=== PATIENT | male | born 1945 | race Hispanic/Latino ===

== ENCOUNTER 2017-04-28 07:17 | Day surgery (SDC) | payer OTHER ==
--- OUTSIDE RECORDS SUMMARY | 2017-04-28 07:18 | XMS REPORT ---
:1945 [facility] [address] [place] [address] Care Team Providers Name Role Phone Kyle US Unavailable Unavailable Problems This patient has no known problems. Allergies, Adverse Reactions, Alerts This patient has no known allergies or adverse reactions. Medications This patient has no known medications. Results Test Description Test Time Test Comments Text Results Atomic Results Result Comments POCT-GLUCOSE METER 2016-05-26 10:32:00 Test Item Value Reference Range Comments POC-GLUCOSE METER (LEANDRO) (test 125 mg/dL 70-110 [facility] 7200 [id number]) [facility] [address]
[2017-04-28 07:45] VITALS: O2SAT 98
[2017-04-28] MEDS: LIDOCAINE 4% TOP SOLUTION ONE ×2 (07:45→07:55)
[2017-04-28] MEDS ORDERED: Phenylephrine HCl 10 MG/ML 1 ML VIAL ONE (07:47)
[2017-04-28] MEDS ORDERED: GLYCOPYRROLATE 0.2 MG/ML SYR ONE (07:47)
[2017-04-28] MEDS ORDERED: LIDOCAINE 1% MPF 30 ML VIAL ONE (07:48)
[2017-04-28] MEDS ORDERED: NA CHLORIDE 0.9% 1,000 ML ONE (07:48)
[2017-04-28] MEDS ORDERED: MIDAZOLAM HCL 2 MG/2 ML INJ ONE (08:23)
[2017-04-28] MEDS ORDERED: PROPOFOL 200 MG/20 ML VIAL IV ONE (08:23)
[2017-04-28] MEDS ORDERED: FENTANYL CITR 100 MCG/2 ML ONE (08:23)
[2017-04-28] MEDS ORDERED: LIDOCAINE 1% MPF 5 ML VIAL ONE (08:27)
--- NOTE | 2017-04-28 08:30 | P.OP ---
Date of Service: 04/28/17 (Bronchoscopy with right upper lobe transbronchial biopsies and BAL) Findings and Operative Technique Patient is 71 years of age evaluated by me for a right upper lobe cavitary lesion he was otherwise asymptomatic he has never smoked denies any constitutional symptoms no fever or chills After obtaining informed consent from the patient he was premedicated by anesthesia Findings normal vocal cords normal trachea normal rough right and left-sided bronchial anatomy this right middle lobe anatomy was a little unusual the Tipple biopsies were obtained from the right upper lobe including a BAL patient did not experience any significant desaturation or hypotension
[2017-04-28] MEDS ORDERED: ESMOLOL HCL 10 ML IV ONE (08:43)
--- NOTE | 2017-04-28 09:54 | RAD REPORT ---
EXAM DESCRIPTION: RAD - FLUORO-GUIDE FOR BRONCH UPT1HR - 04/28/2017 9:01 am CLINICAL HISTORY: Right upper lobe lung mass. COMPARISON: None. FINDINGS: Fluoroscopic imaging is submitted of the right lung. Details of procedure not available.
--- NOTE | 2017-04-28 10:16 | RAD REPORT ---
EXAM DESCRIPTION: RAD - Chest Single View - 04/28/2017 9:51 am CLINICAL HISTORY: Status post bronchoscopy COMPARISON: 03/30/2017 FINDINGS: Portable technique limits examination quality. Examination was performed at expiration. No pneumothorax is seen. Cavitary lesion right apex is again noted. IMPRESSION: No postprocedure pneumothorax.
[2017-04-28 13:11] VITALS: BP 138/79; TEMP 98
== END 2017-04-28 10:30 | disposition home or self-care (01) ==
LOC: OR 07:17
PROVIDERS: ATTEND Internal Medicine Sleep Medicine
DX: E11.9 Type 2 diabetes mellitus without complications; R91.8 Other nonspecific abnormal finding of lung field; I10 Essential (primary) hypertension
CPT/HCPCS: 31624; 31628; 71045; 76000; 82962; 87015; 87102; 87116; 87206; 88108; 88305 ×2; 88312 ×2; J2250; J2370; J3010; J7030

== ENCOUNTER 2019-02-23 13:55 | Emergency (ER) | payer OTHER ==
--- OUTSIDE RECORDS SUMMARY | 2019-02-23 13:58 | XMS REPORT ---
:1945 [facility] Address [address] [place] [address] Care Team Providers Name Role Phone PEGGY US Unavailable Unavailable Problems This patient has no known problems. Allergies, Adverse Reactions, Alerts This patient has no known allergies or adverse reactions. Medications This patient has no known medications. Results Test Description Test Time Test Comments Text Results Atomic Results Result Comments POCT-GLUCOSE METER 2018-04-12 12:19:00 Test Item Value Reference Range Comments POC-GLUCOSE METER (BEAKER) (test 110 mg/dL 70-110 TESTED AT [facility] 7200 [id number]) [place] [address] POCT-GLUCOSE [id number] 10:32:00 Test Item Value Reference Range Comments POC-GLUCOSE METER (BEAKER) 125 mg/dL 70-110 TESTED AT [facility] 7200 (test wnau=[id number]) [place] [address]
--- NOTE | 2019-02-23 16:25 | RAD REPORT ---
EXAM DESCRIPTION: US - Extremity Venous Uni Ltd - 02/23/2019 3:02 pm CLINICAL HISTORY: Left leg pain and swelling COMPARISON: None. TECHNIQUE: Real-time sonographic evaluation of the left lower extremity deep venous system was perfo rmed. FINDINGS: Normal compressibility, flow augmentation, phasic flow and spontaneous flow are identified in the left lower extremity common femoral, superficial femoral, popliteal and posterior tibial vein s. No intraluminal filling defects seen. IMPRESSION: No DVT in the left lower extremity.
--- NOTE | 2019-02-23 16:28 | ER ---
Nurse's Notes [facility] Name: Gilberto Rangel Age: 73 yrs Sex: Male : 1945 Arrival Date: 02/23/2019 Time: 13:58 Bed 26 Private MD: Aristides Townsend E Diagnosis: Pain in left leg Presentation: 02/23 14:06 Presenting complaint: Child states: His leg left leg has been swollen and it feels like aj1 it burning." Reports that he has had this pain for the past 2 months. Transition of care: patient was not received from another setting of care. Onset of symptoms was 2019. Risk Assessment: Do you want to hurt yourself or someone else? Patient reports no desire to harm self or others. Initial Sepsis Screen: Does the patient meet any 2 criteria? No. Patient's initial sepsis screen is negative. Does the patient have a suspected source of infection? No. Patient's initial sepsis screen is negative. Care prior to arrival: None. 14:06 Method Of Arrival: Ambulatory aj 14:06 Acuity: FILIBERTO 3 aj1 Triage Assessment: 14:08 General: Appears in no apparent distress. comfortable, Behavior is calm, cooperative, aj1 appropriate for age. Pain: Complains of pain in medial aspect of left thigh. Neuro: Level of Consciousness is awake, alert, obeys commands. Cardiovascular: Patient's skin is warm and dry. Respiratory: Airway is patent Respiratory effort is even, unlabored, Respiratory pattern is regular, symmetrical. Historical: - Allergies: 14:08 No Known Allergies; aj1 - PMHx: 14:08 Diabetes - NIDDM; Hyperlipidemia; Hypertension; aj1 - Immunization history:: Adult Immunizations up to date. - Social history:: Smoking status: Patient/guardian denies using tobacco. - Ebola Screening: : Patient denies travel to an Ebola-affected area in the 21 days before illness onset. Screenin:10 Abuse screen: Denies threats or abuse. Denies injuries from another. Nutritional ls4 screening: No deficits noted. Tuberculosis screening: No symptoms or risk factors identified. Fall Risk None identified. Assessment: 14:10 General: Appears in no apparent distress. comfortable, Behavior is calm, cooperative. ls4 Neuro: No deficits noted. Cardiovascular: No deficits noted. Respiratory: No deficits noted. GI: No deficits noted. : No deficits noted. Derm: No deficits noted. Musculoskeletal: No deficits noted. 15:11 Reassessment: Patient appears in no apparent distress at this time. Patient and/or ls4 family updated on plan of care and expected duration. Pain level reassessed. Patient is alert, oriented x 3, equal unlabored respirations, skin warm/dry/pink. 16:11 Reassessment: Patient appears in no apparent distress at this time. Patient and/or ls4 family updated on plan of care and expected duration. Pain level reassessed. Patient is alert, oriented x 3, equal unlabored respirations, skin warm/dry/pink. 16:11 Pain: Denies pain. ls4 Vital Signs: 14:08 BP 171 / 92; Pulse 83; Resp 18; Temp 97.2; Pulse Ox 96% on R/A; Weight 74.84 kg (R); aj1 Height 5 ft. 6 in. (167.64 cm); 15:10 BP 162 / 74; Pulse 82; Resp 16; Temp 97.4; Pulse Ox 99% on R/A; Pain 0/10; ls4 16:56 BP 156 / 70; Pulse 79; Resp 14; Temp 97.4(O); Pulse Ox 99% on R/A; Pain 0/10; ls4 14:08 Body Mass Index 26.63 (74.84 kg, 167.64 cm) aj1 ED Course: 13:58 Patient arrived in ED. mr 13:59 Aristides Townsend MD is Private Physician. mr 14:07 Triage completed. aj1 14:08 Arm band placed on Patient placed in an exam room. aj1 14:10 Patient has correct armband on for positive identification. Bed in low position. Call ls4 light in reach. Side rails up X2. Warm blanket given. Verbal reassurance given. 14:14 Vincent Rueda, DANAY is PHCP. pm1 14:14 Damion Augustine MD is Attending Physician. pm1 15:01 Extremity Venous Uni Ltd US In Process Unspecified. EDMS 15:10 Alanna Mcdonald, PATRICIA is Primary Nurse. ls4 15:11 No provider procedures requiring assistance completed. Patient did not have IV access ls4 during this emergency room visit. Administered Medications: No medications were administered Outcome: 16:27 Discharge ordered by . pm1 16:36 Discharged to home with family. ls4 16:36 Condition: stable 16:36 Discharge instructions given to patient, family, Instructed on discharge instructions, follow up and referral plans. Demonstrated understanding of instructions, follow-up care. 16:57 Patient left the ED. ls4 Signatures: Dispatcher [employer] EDMS Karen Lyons RN RN aj1 Celina Franco mr MohitVincent, FLEET COORDINATOR FLEET COORDINATOR pm1 Alanna Mcdonald RN RN ls4
--- NOTE | 2019-02-23 16:28 | EDPHYS ---
Physician Documentation [facility] Name: Gilberto Rangel Age: 73 yrs Sex: Male : 1945 Arrival Date: 02/23/2019 Time: 13:58 Bed 26 Private MD: Aristides Townsend E ED Physician Damion Augustine HPI: 02/23 15:24 This 73 yrs old Male presents to ER via Ambulatory with complaints of Leg pm1 Swelling and Pain. 15:24 The patient presents with pain. The complaints affect the medial aspect of left thigh. pm1 Context: The problem was sustained at home, resulted from an unknown cause, the patient can fully bear weight, the patient is able to ambulate, Problem is a result from a previous injury: No. Onset: The symptoms/episode began/occurred 2 month(s) ago. Modifying factors: The symptoms are alleviated by remaining still, the symptoms are aggravated by movement. Associated signs and symptoms: Pertinent negatives calf tenderness, fever, shortness of breath. Treatment prior to arrival includes: no previous treatment. Severity of symptoms: in the emergency department the symptoms are unchanged. The patient has not experienced similar symptoms in the past. The patient has not recently seen a physician. Historical: - Allergies: 14:08 No Known Allergies; aj1 - PMHx: 14:08 Diabetes - NIDDM; Hyperlipidemia; Hypertension; aj1 - Immunization history:: Adult Immunizations up to date. - Social history:: Smoking status: Patient/guardian denies using tobacco. - Ebola Screening: : Patient denies travel to an Ebola-affected area in the 21 days before illness onset. ROS: 15:24 Constitutional: Negative for fever, chills, and weight loss, Neck: Negative for injury, pm1 pain, and swelling, Cardiovascular: Negative for chest pain, palpitations, and edema, Respiratory: Negative for shortness of breath, cough, wheezing, and pleuritic chest pain, Abdomen/GI: Negative for abdominal pain, nausea, vomiting, diarrhea, and constipation, Back: Negative for injury and pain. 15:24 Skin: Negative for injury, rash, and discoloration, Neuro: Negative for headache, weakness, numbness, tingling, and seizure. 15:24 MS/extremity: Positive for pain, swelling, tenderness, of the medial aspect of left thigh, Negative for decreased range of motion, deformity. Exam: 15:24 Constitutional: This is a well developed, well nourished patient who is awake, alert, pm1 and in no acute distress. Head/Face: Normocephalic, atraumatic. Chest/axilla: Normal chest wall appearance and motion. Nontender with no deformity. No lesions are appreciated. Cardiovascular: Regular rate and rhythm with a normal S1 and S2. No gallops, murmurs, or rubs. Normal PMI, no JVD. No pulse deficits. Respiratory: Lungs have equal breath sounds bilaterally, clear to auscultation and percussion. No rales, rhonchi or wheezes noted. No increased work of breathing, no retractions or nasal flaring. Abdomen/GI: Soft, non-tender, with normal bowel sounds. No distension or tympany. No guarding or rebound. No evidence of tenderness throughout. Back: No spinal tenderness. No costovertebral tenderness. Full range of motion. Skin: Warm, dry with normal turgor. Normal color with no rashes, no lesions, and no evidence of cellulitis. 15:24 Musculoskeletal/extremity: Extremities: grossly normal except: noted in the medial aspect of left thigh: tenderness, There is no evidence of decreased ROM, erythema, swelling, Pulses: noted to be 2+ in the left dorsalis pedis artery, the left leg Sensation intact. 15:24 Neuro: Orientation: is normal, Motor: is normal, moves all fours. Vital Signs: 14:08 BP 171 / 92; Pulse 83; Resp 18; Temp 97.2; Pulse Ox 96% on R/A; Weight 74.84 kg (R); aj1 Height 5 ft. 6 in. (167.64 cm); 15:10 BP 162 / 74; Pulse 82; Resp 16; Temp 97.4; Pulse Ox 99% on R/A; Pain 0/10; ls4 16:56 BP 156 / 70; Pulse 79; Resp 14; Temp 97.4(O); Pulse Ox 99% on R/A; Pain 0/10; ls4 14:08 Body Mass Index 26.63 (74.84 kg, 167.64 cm) [facility] MDM: 14:20 Patient medically screened. [facility] 15:28 Data reviewed: vital signs. Data interpreted: Pulse oximetry: on room air is 96 %. pm1 Interpretation: normal. 16:26 Counseling: I had a detailed discussion with the patient and/or guardian regarding: the pm1 historical points, exam findings, and any diagnostic results supporting the discharge/admit diagnosis, radiology results, the need for outpatient follow up, to return to the emergency department if symptoms worsen or persist or if there are any questions or concerns that arise at home. 02/23 14:35 Order name: Extremity Venous Uni Ltd US; Complete Time: 16:26 pm1 Administered Medications: No medications were administered Disposition: 20:41 Co-signature as Attending Physician, Damion Augustine MD I agree with the assessment and [facility] plan of care. Disposition: 02/23/19 16:27 Discharged to Home. Impression: Pain in left leg. - Condition is Stable. - Discharge Instructions: Musculoskeletal Pain. - Prescriptions for Tramadol 50 mg Oral Tablet - take 1 tablet by ORAL route every 8 hours as needed; 12 tablet. - Medication Reconciliation Form, Thank You Letter, Antibiotic Education, Prescription Opioid Use form. - Follow up: Emergency Department; When: As needed; Reason: Worsening of condition. Follow up: Private Physician; When: 2 - 3 days; Reason: Recheck today's complaints, Continuance of care, Re-evaluation by your physician. - Problem is new. - Symptoms have improved. Signatures: Dispatcher [employer] EDKaren Li, PATRICIA RN aj1 Damion Augustine MD MD cha Marinas, Patrick, DANAY DIRECTOR OF ACADEMIC SUPPORT pm1 Alanna Mcdonald RN RN ls4 Corrections: (The following items were deleted from the chart) 16:57 16:27 02/23/2019 16:27 Discharged to Home. Impression: Pain in left leg. Condition is ls4 Stable. Forms are Medication Reconciliation Form, Thank You Letter, Antibiotic Education, Prescription Opioid Use. Follow up: Emergency Department; When: As needed; Reason: Worsening of condition. Follow up: Private Physician; When: 2 - 3 days; Reason: Recheck today's complaints, Continuance of care, Re-evaluation by your physician. Problem is new. Symptoms have improved. pm1
[2019-02-23 18:02] VITALS: TEMP 97.4; O2SAT 99
[2019-02-23 18:03] VITALS: BP 156/70
== END 2019-02-23 16:57 | disposition home or self-care (01) ==
LOC: ER 13:55
DX: M79.652 Pain in left thigh (principal); I10 Essential (primary) hypertension
CPT/HCPCS: 93971; 99283

== ENCOUNTER 2019-04-16 12:44 | Emergency (ER) | payer OTHER ==
--- OUTSIDE RECORDS SUMMARY | 2019-04-16 12:46 | XMS REPORT ---
:1945 [facility] Address [address] [place] [address] Care Team Providers Name Role Phone PEGGY [...] (BEAKER) (test 110 mg/dL 70-110 TESTED AT [facility] 7200 [id number]) [place] [address] POCT-GLUCOSE [id number] 10:32:00 Test Item Value Reference Range Comments POC-GLUCOSE METER (BEAKER) 125 mg/dL 70-110 TESTED AT [facility] 7200 (test stut=2423) [place] [address]
--- OUTSIDE RECORDS SUMMARY | 2019-04-16 12:46 | XMS REPORT | Summary of Care ---
:1945 Author Organization [facility] [place] [address] Care Team Providers Name Role Phone Aristides Townsend MD Primary Care Provider Reason for Visit Reason Comments Eye Problem Consult, Test & Treat (Routine) Status Reason Specialty Diagnoses / Referred By Referred To Procedures Contact Contact Patient Ophth Cornea Diagnoses Return in about 9 months Referral, Marsha Dover Specialist / Procedures ESTABLISHED OFFICE VISIT Self Lalo Ophthalmology MD [address] [place] [address] Encounter Details Date Type Department Care Team Description 04/16/2019 Office Visit [facility] Lalo Dover Eye Problem Ophthalmology [address] [place] [address] [id number] [place] [address] Allergies No Known Allergiesdocumented as of this encounter (statuses as of 04/16/2019) Medications Medication Sig Dispensed Refills Start Date End Date Status simvastatin (ZOCOR) Take 20 mg 0 Active 20 MG tablet by mouth every evening. lisinopril (PRINIVIL, Take 40 mg 0 Active ZESTRIL) 40 MG tablet by mouth daily. GLIPIZIDE OR Take by 0 Active mouth. AMLODIPINE BESYLATE Take by 0 Active OR mouth. TRAZODONE HCL OR Take by 0 Active mouth. metformin Take 1,000 0 Active (GLUCOPHAGE) 1000 MG mg by tablet mouth 2 times daily (with meals). metoprolol Take 50 mg 0 Active (TOPROL-XL) 50 MG XL by mouth. tablet fluorometholone (FML) Place 1 10 mL 10 07/17/2018 Active 0.1 % ophthalmic Drop into suspension the left eye daily. fluorometholone (FML) Place 1 10 mL 6 04/16/2019 Active 0.1 % ophthalmic Drop into suspension the left eye daily. fluorometholone (FML) Place 1 10 mL 10 03/07/2018 Discontinued 0.1 % ophthalmic Drop into 0 (*Duplicate suspension the left medication) eye daily. difluprednate Place 1 5 mL 3 04/10/2018 Discontinued (DUREZOL) 0.05 % Drop into 0 (*Therapy ophthalmic emulsion the left completed) eye four times daily. documented as of this encounter (statuses as of 04/16/2019) Active Problems Problem Noted Date Primary open angle glaucoma (POAG) of left eye, severe stage 08/21/2018 documented as of this encounter (statuses as of 04/16/2019) Social History Tobacco Use Types Packs/Day Years Used Date Never Smoker Smokeless Tobacco: Never Used Sex Assigned at Date Recorded Not on file Job Start Date Occupation Industry Not on file Not on file Not on file Travel History Travel Start Travel End No recent travel history available. documented as of this encounter Last Filed Vital Signs Not on filedocumented in this encounter Progress Notes Lalo Dover MD - 04/16/2019 9:50 AM CDT PROGRESS NOTE: Summary: This patient underwent DMEK in the left eye and May 2016 with a repeat DMEK in the left eye in April 2018. I saw him most recently in July of last last year on exam at that time he was 20/40 left with a prosthesis in the right eye the left eye showed horizontal pupil displacement with a large superior PI and and IOL in good position. Currently he notes his vision fluctuates but he is doing well. HPI SKA Pt is a 73 y.o M here for yearly corneal transplant eval OS. Pt states OS VA fluctuates a lot is notvery stable, some days its better than others. Denies eye pain or discomfort. POHx: 05/26/2016 DMEK OS ([facility]) 04/12/2018 Repeat DMEK OS 8% C3F8 ([facility]) Prosthesis OD Gtts: FML QD OS (refill sent) Last edited by Nini Barr COA on 04/16/2019 10:29 AM. (History) IMPRESSION: #1. Doing well following DMEK OS #2 glaucoma currently followed by Dr. Mauricio PLAN: #1. Continue current medications #2 follow-up with Dr. Mauricio CLAUDIA #3 return to see me in 1 year ATTESTATIONS: I have personally interviewed and examined the patient. I have reviewed the PMH , SH, FHX, ROS, MEDS,ALLERGIES and TECH NOTE, and have updated the computerized patient record appropriately. The review of systems is negative unless documented otherwise in the medical record. In the event that there is documentation by the resident or fellow in the medical record, I agree with the resident/fellow's assessment and plan. Any exceptions are noted in my assessment & plan.The risks, benefits, and alternatives of treatment were discussed with the patient (& family, If present). All questions regarding diagnosis and treatment were answered to the patient's satisfaction.This document has been prepared with the assistance of voice recognition software. Despite proof reading, some errors may have occurred.- please forgive mis- transcriptions, mis-heard words, or errors documented in this encounter Plan of Treatment Health Maintenance Due Date Last Done Comments COLON CANCER SCREENING: COLONOSCOPY 1945 TETANUS SHOT (ADULT) 10/08/1958 FALL SCREEN 10/08/2008 PNEUMOVAX >=65 (PPSV23) 10/08/2008 PREVNAR >=65 (PCV13) 10/08/2008 MEDICARE AWV (Initial) 02/07/2018 FLU VACCINE > 6 MONTHS 09/07/2018 documented as of this encounter Results Not on filedocumented in this encounter Visit Diagnoses Diagnosis Open-angle glaucoma of left eye, unspecified glaucoma stage, unspecified open- angle glaucoma type - Primary 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
--- NOTE | 2019-04-16 15:19 | RAD REPORT ---
EXAM DESCRIPTION: Bno Pa And Lat (2 Views)04/16/2019 3:12 pm CLINICAL HISTORY: Cough COMPARISON: March 2019 FINDINGS: The right apical opacity appears mildly diminished in size The lungs appear clear of acute infiltrate. The heart is normal size IMPRESSION: Right apical opacity appears mildly diminished in size. It is recommended that this be followed until it is clear to help exclude post obstructive process/underlying mass
[2019-04-16] MEDS ORDERED: AZITHROMYCIN 250 MG TAB ONE (15:40)
--- NOTE | 2019-04-16 15:42 | ER ---
Nurse's Notes [facility] Name: Gilberto Rangel Age: 73 yrs Sex: Male : 1945 Arrival Date: 04/16/2019 Time: 12:47 Bed 15 Private MD: Aristides Townsend E Diagnosis: Cough;Acute upper respiratory infection, unspecified;Type 2 diabetes mellitus Presentation: 04/15 12:55 Chief complaint: Patient states: dry, hacking cough x 9 days and now a sore chest. ss Denies fever. Pt reports that it is hard for him to sleep when he lays down because he feels as if he cannot breathe. Coronavirus screen: The patient has NOT traveled to a country currently being monitored by the [facility] within the last 14 days. Proceed with normal triage procedures. Ebola Screen: Patient denies exposure to infectious person. Patient denies travel to an Ebola-affected area in the 21 days before illness onset. Resp Distress? No respiratory distress is noted at this time. Initial Sepsis Screen: Does the patient meet any 2 criteria? No. Patient's initial sepsis screen is negative. Does the patient have a suspected source of infection? No. Patient's initial sepsis screen is negative. Risk Assessment: Do you want to hurt yourself or someone else? Patient reports no desire to harm self or others. 12:55 Method Of Arrival: Ambulatory ss 12:55 Acuity: FILIBERTO 3 ss Historical: - Allergies: 12:57 No Known Allergies; ss - PMHx: 12:57 Diabetes - NIDDM; Hyperlipidemia; Hypertension; ss - Immunization history:: Adult Immunizations up to date. - Social history:: Smoking status: Patient denies any tobacco usage or history of. - Family history:: not pertinent. Screenin:05 Abuse screen: Denies threats or abuse. Denies injuries from another. Nutritional ph screening: No deficits noted. Tuberculosis screening: No symptoms or risk factors identified. Fall Risk None identified. Vital Signs: 12:55 BP 165 / 89; Pulse 70; Resp 16; Temp 97.4; Pulse Ox 96% on R/A; Pain 3/10; ss ED Course: 12:47 Patient arrived in ED. mr 12:47 Aristides Townsend MD is Private Physician. mr 12:56 Triage completed. ss 12:57 Arm band placed on right wrist. ss 13:34 Davide, Damion, MD is Attending Physician. [facility] 14:00 Chiqui Jarrett, RN is Primary Nurse. 14:08 Patient has correct armband on for positive identification. Bed in low position. Call ph light in reach. Pulse ox on. NIBP on. Door closed. Noise minimized. Warm blanket given. 15:39 Aristides Townsend MD is Referral Physician. [facility] 15:39 Cornelio Puckett MD is Referral Physician. [facility] 03 07:45 Attending Physician role handed off by Damion Augustine MD 07:46 Margarita Main, RN is Primary Nurse. ss Administered Medications: 04/15 16:36 Drug: Zithromax 500 mg Route: PO; ph Outcome: 15:42 Discharge ordered by . [facility] 16:36 Patient left the ED. ph Signatures: Damion Augustine MD MD cha Rivera, Mary Chiqui Jarrett, PATRICIA RN Margarita Main RN RN ph Corrections: (The following items were deleted from the chart) 04/16 07:47 07:[address] [facility]
--- NOTE | 2019-04-16 15:42 | EDPHYS ---
Physician Documentation [facility] Name: Gilberto Rangel Age: 73 yrs Sex: Male : 1945 Arrival Date: 04/16/2019 Time: 12:47 Bed 15 Private MD: Aristides Townsend E ED Physician HPI: 04/15 14:20 This 73 yrs old Male presents to ER via Ambulatory with complaints of Cough, fay Congestion. 14:20 The patient or guardian reports cough, that is intermittent. Onset: The fay symptoms/episode began/occurred 10 day(s) ago. Severity of symptoms: At their worst the symptoms were mild, in the emergency department the symptoms are unchanged. Modifying factors: The symptoms are alleviated by nothing, the symptoms are aggravated by nothing. Associated signs and symptoms: The patient has no apparent associated signs or symptoms. The patient has not experienced similar symptoms in the past. Historical: - Allergies: 12:57 No Known Allergies; ss - PMHx: 12:57 Diabetes - NIDDM; Hyperlipidemia; Hypertension; ss - Immunization history:: Adult Immunizations up to date. - Social history:: Smoking status: Patient denies any tobacco usage or history of. - Family history:: not pertinent. ROS: 14:20 Constitutional: Negative for fever, chills, and weight loss, Eyes: Negative for injury, fay pain, redness, and discharge, ENT: Negative for injury, pain, and discharge, Neck: Negative for injury, pain, and swelling, Cardiovascular: Negative for chest pain, palpitations, and edema, Abdomen/GI: Negative for abdominal pain, nausea, vomiting, diarrhea, and constipation, Back: Negative for injury and pain, : Negative for injury, bleeding, discharge, and swelling, MS/Extremity: Negative for injury and deformity, Skin: Negative for injury, rash, and discoloration, Neuro: Negative for headache, weakness, numbness, tingling, and seizure, Psych: Negative for depression, anxiety, suicide ideation, homicidal ideation, and hallucinations, Allergy/Immunology: Negative for hives, rash, and allergies, Endocrine: Negative for neck swelling, polydipsia, polyuria, polyphagia, and marked weight changes, Hematologic/Lymphatic: Negative for swollen nodes, abnormal bleeding, and unusual bruising. 14:20 Respiratory: Positive for cough. Exam: 14:20 Constitutional: This is a well developed, well nourished patient who is awake, alert, fay and in no acute distress. Head/Face: Normocephalic, atraumatic. Eyes: Pupils equal round and reactive to light, extra-ocular motions intact. Lids and lashes normal. Conjunctiva and sclera are non-icteric and not injected. Cornea within normal limits. Periorbital areas with no swelling, redness, or edema. ENT: Nares patent. No nasal discharge, no septal abnormalities noted. Tympanic membranes are normal and external auditory canals are clear. Oropharynx with no redness, swelling, or masses, exudates, or evidence of obstruction, uvula midline. Mucous membranes moist. Neck: Trachea midline, no thyromegaly or masses palpated, and no cervical lymphadenopathy. Supple, full range of motion without nuchal rigidity, or vertebral point tenderness. No Meningismus. Chest/axilla: Normal chest wall appearance and motion. Nontender with no deformity. No lesions are appreciated. Cardiovascular: Regular rate and rhythm with a normal S1 and S2. No gallops, murmurs, or rubs. Normal PMI, no JVD. No pulse deficits. Respiratory: Lungs have equal breath sounds bilaterally, clear to auscultation and percussion. No rales, rhonchi or wheezes noted. No increased work of breathing, no retractions or nasal flaring. Abdomen/GI: Soft, non-tender, with normal bowel sounds. No distension or tympany. No guarding or rebound. No evidence of tenderness throughout. Back: No spinal tenderness. No costovertebral tenderness. Full range of motion. Male : Normal genitalia with no discharge or lesions. Skin: Warm, dry with normal turgor. Normal color with no rashes, no lesions, and no evidence of cellulitis. MS/ Extremity: Pulses equal, no cyanosis. Neurovascular intact. Full, normal range of motion. Neuro: Awake and alert, GCS 15, oriented to person, place, time, and situation. Cranial nerves II-XII grossly intact. Motor strength 5/5 in all extremities. Sensory grossly intact. Cerebellar exam normal. Normal gait. Psych: Awake, alert, with orientation to person, place and time. Behavior, mood, and affect are within normal limits. 14:20 Musculoskeletal/extremity: DVT Exam: No signs of deep vein thrombosis. no pain, no swelling, no tenderness, negative Homans' sign noted on exam, no appreciated bluish discoloration, no erythema, no increased warmth. Vital Signs: 12:55 BP 165 / 89; Pulse 70; Resp 16; Temp 97.4; Pulse Ox 96% on R/A; Pain 3/10; ss MDM: 13:34 Patient medically screened. [facility] 14:21 Data reviewed: vital signs, nurses notes, radiologic studies, plain films. [facility] 04/15 14:08 Order name: Chest Pa And Lat (2 Views) XRAY [facility] 04/15 16:15 Order name: RAD EDMA Administered Medications: 16:36 Drug: Zithromax 500 mg Route: PO; ph Disposition: 04/16/19 15:42 Discharged to Home. Impression: Cough, Acute upper respiratory infection, unspecified, Type 2 diabetes mellitus. - Condition is Stable. - Discharge Instructions: Type 2 Diabetes Mellitus, Diagnosis, Adult, Upper Respiratory Infection, Adult, Upper Respiratory Infection, Adult, Gaem-sm-Tqbx, Cough, Adult, Vwcx-xn-Fhcu, Cough, Adult, Type 2 Diabetes Mellitus, Diagnosis, Adult, Azae-bx-Pyys, Type 2 Diabetes Mellitus, Self Care, Adult, Type 2 Diabetes Mellitus, Self Care, Adult, Knfu-sb-Yyxi. - Prescriptions for Bromfed DM 2- 30-10 mg/5 mL Oral syrup - take 10 milliliter by ORAL route every 4 hours; 160 milliliter. Zithromax 500 mg Oral Tablet - take 1 tablet by ORAL route once daily for 5 days; 5 tablet. - Medication Reconciliation Form, Thank You Letter, Antibiotic Education, Prescription Opioid Use form. - Follow up: Aristides Townsend; When: 2 - 3 days; Reason: Recheck today's complaints, Continuance of care, Re-evaluation by your physician. Follow up: Cornelio Puckett; When: 2 - 3 days; Reason: Recheck today's complaints, Re-evaluation by your physician. - Problem is new. - Symptoms have improved. Signatures: Dispatcher [employer] EDMS Damion Augustine MD MD cha Smirch, Shelby, RN RN ss Margarita Main RN RN ph Corrections: (The following items were deleted from the chart) 16:36 15:42 04/16/2019 15:42 Discharged to Home. Impression: Cough; Acute upper respiratory ph infection, unspecified; Type 2 diabetes mellitus. Condition is Stable. Discharge Instructions: Type 2 Diabetes Mellitus, Diagnosis, Adult, Upper Respiratory Infection, Adult, Upper Respiratory Infection, Adult, Qkln-cf-Jejs, Cough, Adult, Itsb-gk-Jfuj, Cough, Adult, Type 2 Diabetes Mellitus, Diagnosis, Adult, Xavq-rt-Ulrk, Type 2 Diabetes Mellitus, Self Care, Adult, Type 2 Diabetes Mellitus, Self Care, Adult, Noqe-wf-Qham. Prescriptions for Bromfed DM 2-30-10 mg/5 mL Oral syrup - take 10 milliliter by ORAL route every 4 hours; 160 milliliter, Zithromax 500 mg Oral Tablet - take 1 tablet by ORAL route once daily for 5 days; 5 tablet. and Forms are Medication Reconciliation Form, Thank You Letter, Antibiotic Education, Prescription Opioid Use. Follow up: Aristides Townsend; When: 2 - 3 days; Reason: Recheck today's complaints, Continuance of care, Re-evaluation by your physician. Follow up: Cornelio Puckett; When: 2 - 3 days; Reason: Recheck today's complaints, Re-evaluation by your physician. Problem is new. Symptoms have improved. [facility] 04/16 07:46 04/15 16:36 04/16/2019 15:42 Discharged to Home. Impression: Cough; Acute upper ss respiratory infection, unspecified; Type 2 diabetes mellitus. Condition is Stable. Discharge Instructions: Type 2 Diabetes Mellitus, Diagnosis, Adult, Upper Respiratory Infection, Adult, Upper Respiratory Infection, Adult, Usya-gi-Eufu, Cough, Adult, Tikh-gr-Iyxp, Cough, Adult, Type 2 Diabetes Mellitus, Diagnosis, Adult, Bzgl-sk-Ilww, Type 2 Diabetes Mellitus, Self Care, Adult, Type 2 Diabetes Mellitus, Self Care, Adult, Itxx-br-Taqa. Prescriptions for Bromfed DM 2-30-10 mg/5 mL Oral syrup - take 10 milliliter by ORAL route every 4 hours; 160 milliliter, Zithromax 500 mg Oral Tablet - take 1 tablet by ORAL route once daily for 5 days; 5 tablet. and Forms are Medication Reconciliation Form, Thank You Letter, Antibiotic Education, Prescription Opioid Use. Follow up: Aristides Townsend; When: 2 - 3 days; Reason: Recheck today's complaints, Continuance of care, Re-evaluation by your physician. Follow up: Cornelio Puckett; When: 2 - 3 days; Reason: Recheck today's complaints, Re-evaluation by your physician. Problem is new. Symptoms have improved. ph
[2019-04-16 16:42] VITALS: BP 165/89; TEMP 97.4; O2SAT 96
== END 2019-04-17 07:46 | disposition home or self-care (01) ==
LOC: ER 12:44
DX: J06.9 Acute upper respiratory infection, unspecified (principal); R05 Cough; E11.9 Type 2 diabetes mellitus without complications
CPT/HCPCS: 71046; 99283

== ENCOUNTER 2019-05-30 19:45 | Emergency (ER) | payer OTHER ==
--- OUTSIDE RECORDS SUMMARY | 2019-05-30 19:47 | XMS REPORT ---
:1945 Author Organization [facility] t Address [address] [place] [address] Care Team Providers Name Role Phone Kyle [...] (BEAKER) (test 110 mg/dL 70-110 TESTED AT [facility] 7200 code = 1538) [facility] [address] POCT-GLUCOSE [id number] 10:32:00 Test Item Value Reference Range Comments POC-GLUCOSE METER (BEAKER) 125 mg/dL 70-110 TESTE D AT [facility] 7200 (test code = 1538) [facility] [id number]
[2019-05-30] MEDS ORDERED: ACETAMINOPHEN 500 MG TAB ONE (21:09)
--- NOTE | 2019-05-30 21:43 | RAD REPORT ---
EXAM DESCRIPTION: CT - Head C Spine Mpr Wo Con - 05/30/2019 8:39 pm CLINICAL HISTORY: Head and neck injury status post fall. Head and neck pain COMPARISON: [address] TECHNIQUE: Computed axial tomography of the head and cervical spine was obtained. Sagittal and coronal reconstruction was performed. All CT scans are performed using dose optimization technique as appropriate and may include automated exposure control or mA/KV adjustment according to patient size. FINDINGS: Left parietal scalp swelling A tiny amount of increased density is present within the anterior interhemispheric fissure likely sub arachnoid blood. Punctate calcification within the left frontal lobe. The ventricles are normal in caliber. An extra-axial fluid collection is not noted.Fluid within the v isualized sinuses and mastoids is not seen A cervical fracture is not visualized. No dislocation is noted. Spondylosis involves the mid and dist al cervical spine 4 centimeter right upper lobe opacity has been present on prior exams IMPRESSION: Tiny subarachnoid bleed within the anterior interhemispheric fissure A cervical fracture is not visualized. Examination was discussed with Dr. Carreno in the Emergency Room at approximately 9:10 p.m. May 30, 2019
[2019-05-30 22:38] LABS: Absolute Lymphocytes (CBC) 2.2 K/uL (0.7-4.9); Basophils % 0.5 % (0-1.3); Lymphocytes % 26.2 % (15.3-44.8); MPV 10.1 fL (7.6-11.3); RBC Red Blood Cell Count 4.75 M/uL (4.33-5.43)
[2019-05-30 22:40] LABS: Protime INR 0.93
[2019-05-30 22:53] LABS: ALT/SGPT 40 U/L (12-78); AST/SGOT 22 U/L (15-37); Albumin 4.2 g/dL (3.4-5.0); Alkaline Phosphatase 60 U/L (45-117); BUN Blood Urea Nitrogen 15 mg/dL (7-18); Bicarbonate 27 mmol/L (21-32); Bilirubin Direct 0.1 mg/dL (0-0.2); Bilirubin Total 0.4 mg/dL (0.2-1.0); Glucose Level 179 mg/dL (74-106); Magnesium 2.1 mg/dL (1.8-2.4); NT PRO-BNP 107 pg/mL (<450); Potassium 4.4 mmol/L (3.5-5.1); Protein, Total 7.9 g/dL (6.4-8.2); Sodium Level 139 mmol/L (136-145); Troponin (Emerg Dept Use Only) < 0.02 ng/mL (0.0-0.045)
--- NOTE | 2019-05-30 22:59 | ER ---
Nurse's Notes [facility] Name: Gilberto Rangel Age: 73 yrs Sex: Male : 1945 Arrival Date: 05/30/2019 Time: 19:51 Bed 2 Private MD: Diagnosis: TRAUMATIC SUBARACHNOID HEMORRHAGE Presentation: 05/29 19:45 Coronavirus screen: Proceed with normal triage. Ebola Screen: No symptoms or risks lp1 identified at this time. Initial Sepsis Screen: Does the patient meet any 2 criteria? No. Patient's initial sepsis screen is negative. Does the patient have a suspected source of infection? No. Patient's initial sepsis screen is negative. Risk Assessment: Do you want to hurt yourself or someone else? Patient reports no desire to harm self or others. Onset of symptoms was May 30, 2019. Care prior to arrival: Bleeding of injury controlled. Injury dressed. 19:45 Acuity: FILIBERTO 3 lp1 19:45 Method Of Arrival: EMS: [facility] lp1 19:45 Chief complaint: Chief complaint: EMS states: Called for patient who had fallen, hit lp1 head on corner of counter top; States carrying a bowl of salsa and slipped, his leg gave out and he hit his head; Denies any LOC, no other complaints; States headache, on arrival 5/10 on pain scale. 20:00 Care prior to arrival: None. Mechanism of Injury: Fall from standing position. Trauma lp1 event details: Injury occurred in the [facility], Injury occurred: at home. Injury occurred: May 30, 2019 Injury occurred at: 18:30. Historical: - Allergies: 20:13 No Known Allergies; lp1 - Home Meds: 20:13 Metformin Oral [Active]; Aspirin Oral [Active]; Simvastatin Oral [Active]; Metoprolol lp1 Tartrate Oral [Active]; - PMHx: 20:13 Diabetes - NIDDM; Hyperlipidemia; Hypertension; lp1 - PSHx: 20:13 Appendectomy; lp1 - Immunization history:: Adult Immunizations up to date, Last tetanus immunization: unknown. - Social history:: Smoking status: Patient denies any tobacco usage or history of. Screenin:51 Abuse screen: Denies threats or abuse. Denies injuries from another. Nutritional lp1 screening: No deficits noted. Tuberculosis screening: No symptoms or risk factors identified. Fall Risk None identified. Primary Survey: 19:45 NO uncontrolled hemorrhage observed. A: The patient is alert. Airway: patent, No lp1 supplemental oxygen in use on arrival. Breathing/Chest: Respiratory pattern: regular, Respiratory effort: spontaneous, unlabored, Breath sounds: clear, Chest inspection: symmetrical rise and fall of the chest. Circulation: Skin color: pink, Skin temperature: warm, dry. Disability Alert. Exposure/Environment: Obvious injury(ies) are noted at this time: Superficial laceration to back of scalp. 21:00 Reassessment Breathing/Chest Respiratory pattern Regular Respiratory effort Spontaneous lp1 Unlabored Chest inspection Symmetrical. Secondary Survey: 20:00 HEENT: Head Other Laceration to back of scalp Face No injury/deformity Eyes: No injury lp1 or deformity noted. to bilateral eyes. Ears: clear bilaterally. Nose: clear to bilateral nares. Throat: No injury or deformity noted. Gastrointestinal: Abdomen is soft. : No signs and/or symptoms were reported regarding the genitourinary system. Musculoskeletal: Range of motion: intact in all extremities. Assessment: 20:00 General: Appears in no apparent distress. Behavior is calm, cooperative, appropriate lp1 for age. Pain: Denies pain. Neuro: Level of Consciousness is awake, alert, obeys commands, Oriented to person, place, time, situation, Pupils are PERRLA, Reports headache. Cardiovascular: Patient's skin is warm and dry. Respiratory: Respiratory effort is even, unlabored. GI: No signs and/or symptoms were reported involving the gastrointestinal system. : No signs and/or symptoms were reported regarding the genitourinary system. EENT: No signs and/or symptoms were reported regarding the EENT system. Derm: superficial laceration to back of scalp, not actively bleeding; superficial laceration to right thumb, no active bleeding. Musculoskeletal: Circulation, motion, and sensation intact. Range of motion: intact in all extremities. 20:45 Reassessment: Patient is alert, oriented x 3, equal unlabored respirations, skin lp1 warm/dry/pink. Patient returned from CT at this time. 21:40 Reassessment: Patient is alert, oriented x 3, equal unlabored respirations, skin lp1 warm/dry/pink. Dr. Carreno at bedside to discuss results with patient, using tennis ball coverer hand; Patient demonstrates understanding of results and plan of care. 23:19 Reassessment: Report given to PATRICIA Anderson for patient transfer to [facility] [address] [address] Bed 2. Vital Signs: 19:45 BP 135 / 86; Pulse 74; Resp 18; Temp 99(TE); Pulse Ox 97% on R/A; Weight 86.18 kg; lp1 Height 5 ft. 4 in. (162.56 cm); Pain 5/10; 21:45 BP 151 / 78; Pulse 63; Resp 18; Pulse Ox 97% on R/A; lp1 22:30 BP 131 / 88; Pulse 62; Resp 18; Pulse Ox 97% on R/A; lp1 23:30 BP 141 / 81; Pulse 66; Resp 17; Pulse Ox 98% on R/A; Pain 0/10; lp1 19:45 Body Mass Index 32.61 (86.18 kg, 162.56 cm) lp1 Vance Coma Score: 20:00 Eye Response: spontaneous(4). Verbal Response: oriented(5). Motor Response: obeys lp1 commands(6). Total: 15. 05/30 03:00 Eye Response: spontaneous(4). Verbal Response: oriented(5). Motor Response: obeys tw4 commands(6). Total: 15. 03:00 Eye Response: spontaneous(4). Verbal Response: oriented(5). Motor Response: obeys tw4 commands(6). Total: 15. Trauma Score (Adult): 05/29 20:00 Eye Response: spontaneous(1); Verbal Response: oriented(1); Motor Response: obeys lp1 commands(2); Systolic BP: > 89 mm Hg(4); Respiratory Rate: 10 to 29 per min(4); Adal Score: 15; Trauma Score: 12 21:00 Eye Response: spontaneous(1); Verbal Response: oriented(1); Motor Response: obeys lp1 commands(2); Systolic BP: > 89 mm Hg(4); Respiratory Rate: 10 to 29 per min(4); Adal Score: 15; Trauma Score: 12 ED Course: 19:45 Patient has correct armband on for positive identification. lp1 19:51 Patient arrived in ED. tw4 19:53 Edin Carreno MD is Attending Physician. tw4 20:00 Wound care: to laceration located on scalp was soaked in normal saline solution, lp1 Patient tolerated well. No bleeding at this time; superficial laceration. 20:00 Patient maintains SpO2 saturation greater than 95% on room air. lp1 20:00 Thermoregulation: warm blanket given to patient. lp1 20:12 Kortney Bui, RN is Primary Nurse. lp1 20:13 Arm band placed on right wrist. lp1 20:39 CT Head C Spine In Process Unspecified. EDMS 20:47 Triage completed. lp1 21:00 CXR XRAY In Process Unspecified. EDMS 22:15 Inserted saline lock: 18 gauge in right antecubital area, using aseptic technique. ds4 Blood collected. 22:22 Basic Metabolic Panel Sent. ds4 22:22 PT-INR Sent. ds4 23:01 No provider procedures requiring assistance completed. lp1 05/30 00:15 Patient transferred, IV remains in place. lp1 Administered Medications: 05/29 21:11 Drug: Tylenol 1000 mg Route: PO; lp1 22:52 Follow up: Response: No adverse reaction lp1 Intake: 05/30 00:00 PO: 0ml; Total: 0ml. lp1 00:00 output: 1 void noted lp1 Outcome: 05/29 22:58 ER care complete, transfer ordered by . tw4 23:01 Instructed on the need for transfer. lp1 23:01 Condition: stable lp1 05/30 00:00 Transferred by ground EMS to [facility], Transfer form completed. lp1 X-rays sent w/ patient. 00:15 Patient's length of stay in the Emergency Department was greater than 2 hours. transfer lp1 servicesPatient's length of stay extended due to 00:15 Patient left the ED. lp1 Signatures: Dispatcher [employer] EDCO Kortney Bui, RN RN lp1 Jerman Hoffman ds4 Edin Carreno MD MD tw4
--- NOTE | 2019-05-30 22:59 | EDPHYS ---
Physician Documentation [facility] Name: Gilberto Rangel Age: 73 yrs Sex: Male : 1945 Arrival Date: 05/30/2019 Time: 19:51 Bed 2 Private MD: ED Physician Edin Carreno HPI: 05/30 03:00 This 73 yrs old Male presents to ER via EMS with complaints of Laceration To tw4 Head. 03:00 The patient or guardian reports a laceration, 5 cm(s), clean, simple, pain. The tw4 complaints affect the right side of the back of head. Context of injury: The problem was sustained at home, resulted from a fall. Onset: The symptoms/episode began/occurred today. Associated signs and symptoms: Loss of consciousness: This patient experience a loss of consciousness, Pertinent positives: loss of conciousness, injury. Severity of symptoms: At their worst the symptoms were mild, in the emergency department the symptoms have resolved. The patient has not experienced similar symptoms in the past. Historical: - Allergies: 05/29 20:13 No Known Allergies; lp1 - Home Meds: 20:13 Metformin Oral [Active]; Aspirin Oral [Active]; Simvastatin Oral [Active]; Metoprolol lp1 Tartrate Oral [Active]; - PMHx: 20:13 Diabetes - NIDDM; Hyperlipidemia; Hypertension; lp1 - PSHx: 20:13 Appendectomy; lp1 - Immunization history:: Adult Immunizations up to date, Last tetanus immunization: unknown. - Social history:: Smoking status: Patient denies any tobacco usage or history of. ROS: 05/30 03:00 Constitutional: Negative for fever, chills, and weight loss, Eyes: Negative for injury, tw4 pain, redness, and discharge, Cardiovascular: Negative for chest pain, palpitations, and edema, Respiratory: Negative for shortness of breath, cough, wheezing, and pleuritic chest pain, Abdomen/GI: Negative for abdominal pain, nausea, vomiting, diarrhea, and constipation, Back: Negative for injury and pain, MS/Extremity: Negative for injury and deformity, Skin: Negative for injury, rash, and discoloration, Neuro: Negative for headache, weakness, numbness, tingling, and seizure. Exam: 03:00 Constitutional: This is a well developed, well nourished patient who is awake, alert, tw4 and in no acute distress. 03:00 Chest/axilla: Normal chest wall appearance and motion. Nontender with no deformity. No lesions are appreciated. Cardiovascular: Regular rate and rhythm with a normal S1 and S2. No gallops, murmurs, or rubs. Normal PMI, no JVD. No pulse deficits. Respiratory: Lungs have equal breath sounds bilaterally, clear to auscultation and percussion. No rales, rhonchi or wheezes noted. No increased work of breathing, no retractions or nasal flaring. Abdomen/GI: Soft, non-tender, with normal bowel sounds. No distension or tympany. No guarding or rebound. No evidence of tenderness throughout. Back: No spinal tenderness. No costovertebral tenderness. Full range of motion. MS/ Extremity: Pulses equal, no cyanosis. Neurovascular intact. Full, normal range of motion. Neuro: Awake and alert, GCS 15, oriented to person, place, time, and situation. Cranial nerves II-XII grossly intact. Motor strength 5/5 in all extremities. Sensory grossly intact. Cerebellar exam normal. Normal gait. 03:00 Head/face: Noted is no obvious of injury or deformity except a laceration(s), that is superficial, 5 cm(s), of the right side of the back of head. Vital Signs: 05/29 19:45 BP 135 / 86; Pulse 74; Resp 18; Temp 99(TE); Pulse Ox 97% on R/A; Weight 86.18 kg; lp1 Height 5 ft. 4 in. (162.56 cm); Pain 5/10; 21:45 BP 151 / 78; Pulse 63; Resp 18; Pulse Ox 97% on R/A; lp1 22:30 BP 131 / 88; Pulse 62; Resp 18; Pulse Ox 97% on R/A; lp1 23:30 BP 141 / 81; Pulse 66; Resp 17; Pulse Ox 98% on R/A; Pain 0/10; lp1 19:45 Body Mass Index 32.61 (86.18 kg, 162.56 cm) lp1 Adal Coma Score: 20:00 Eye Response: spontaneous(4). Verbal Response: oriented(5). Motor Response: obeys lp1 commands(6). Total: 15. 04/23 03:00 Eye Response: spontaneous(4). Verbal Response: oriented(5). Motor Response: obeys tw4 commands(6). Total: 15. 03:00 Eye Response: spontaneous(4). Verbal Response: oriented(5). Motor Response: obeys tw4 commands(6). Total: 15. Trauma Score (Adult): 05/29 20:00 Eye Response: spontaneous(1); Verbal Response: oriented(1); Motor Response: obeys lp1 commands(2); Systolic BP: > 89 mm Hg(4); Respiratory Rate: 10 to 29 per min(4); Adal Score: 15; Trauma Score: 12 21:00 Eye Response: spontaneous(1); Verbal Response: oriented(1); Motor Response: obeys lp1 commands(2); Systolic BP: > 89 mm Hg(4); Respiratory Rate: 10 to 29 per min(4); Adal Score: 15; Trauma Score: 12 MDM: 19:53 Patient medically screened. 05/30 03:00 Differential diagnosis: Contusion of Hematoma on Intracranial bleed- Concussion with tw4 LOC. cerebral contusion. Data reviewed: vital signs, nurses notes. Data reviewed: lab test result(s), cardiac enzymes, CBC, hepatic panel, EKG, radiologic studies, CT scan, plain films. 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 Counseling: I had a detailed discussion with the patient and/or guardian regarding: the historical points, exam findings, and any diagnostic results supporting the discharge/admit diagnosis, lab results, radiology results. Awaiting: transfer to another facility. ED course: pt accepted by Dr Gramajo from Neurology at [facility]. 05/29 21:17 Order name: Basic Metabolic Panel; Complete Time: 03:09 05/30 03:09 Interpretation: Normal except: GLUC 179; GFR 56. 05/29 21:17 Order name: CBC with Diff; Complete Time: 03:09 05/30 03:10 Interpretation: Within normal limits. 05/29 21:17 Order name: LFT's; Complete Time: 03:09 05/30 03:10 Interpretation: Normal except: GLOB 3.7. 05/29 21:17 Order name: Magnesium; Complete Time: 03:09 05/30 03:10 Interpretation: Within normal limits: MG 2.1. 05/29 21:17 Order name: NT PRO-BNP; Complete Time: 03:09 05/30 03:10 Interpretation: Within normal limits: NT PRO-BNP 107. 05/29 21:17 Order name: PT-INR; Complete Time: 22:44 05/29 19:53 Order name: CT Head C Spine; Complete Time: 03:09 05/29 20:48 Order name: CXR XRAY 05/29 21:17 Order name: Troponin (emerg Dept Use Only); Complete Time: 03:09 05/30 03:10 Interpretation: Within normal limits: TROPED < 0.02. 05/29 21:17 Order name: EKG; Complete Time: 21:17 05/29 21:17 Order name: Cardiac monitoring; Complete Time: 22:52 05/29 21:17 Order name: EKG - Nurse/Tech; Complete Time: 22:52 05/29 21:17 Order name: IV Saline Lock; Complete Time: 22:22 05/29 21:17 Order name: Labs collected and sent; Complete Time: 22:22 05/29 21:17 Order name: O2 Per Protocol; Complete Time: 22:22 05/29 21:17 Order name: O2 Sat Monitoring; Complete Time: 22:22 tw4 EC:08 Rhythm is regular, 1st Degree Block with Right bundle branch block. QRS [place] is Normal. tw4 NM interval is normal. QRS interval is normal. QT interval is normal. No Q waves. T waves are Normal. No ST changes noted. Clinical impression: 1st degree heart block. Interpreted by me. Reviewed by me. Administered Medications: 05/29 21:11 Drug: Tylenol 1000 mg Route: PO; lp1 22:52 Follow up: Response: No adverse reaction lp1 Disposition: 05/30/19 22:58 Transfer ordered to [facility]. Diagnosis is TRAUMATIC SUBARACHNOID HEMORRHAGE. - Reason for transfer: Higher level of care. - Accepting physician is Dr Gramajo. - Condition is Stable. - Problem is new. - Symptoms are unchanged. Signatures: Dispatcher [employer] EDKortney Dexter, RN RN lp1 Edin Carreno MD MD tw4 Corrections: (The following items were deleted from the chart) 05/30 00:15 05/29 22:58 05/30/2019 22:58 Transfer ordered to [facility]. lp1 Diagnosis is TRAUMATIC SUBARACHNOID HEMORRHAGE. Reason for transfer: Higher level of care. Accepting physician is Dr Gramajo. Condition is Stable. Problem is new. Symptoms are unchanged. tw4
[2019-05-31 00:35] VITALS: TEMP 99
[2019-05-31 00:39] VITALS: BP 141/81; O2SAT 98
--- NOTE | 2019-05-31 07:59 | EKG ---
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 RESULTS: Intervals: Rate: 63 HI: 212 QRSD: 104 QT: 426 QTc: 435 [place]: P: 54 HI: 212 QRS: -49 T: 34 INTERPRETIVE STATEMENTS: Sinus rhythm with 1st degree AV block with premature atrial complexes Incomplete right bundle branch block Left anterior fascicular block Possible Anterior infarct, age undetermined Abnormal ECG Compared to ECG 11/15/2014 19:24:30 Atrial premature complex(es) now present First degree AV block now present Incomplete right bundle-branch block now present Left anterior fascicular block now present Myocardial infarct finding now present Sinus arrhythmia no longer present Left-axis deviation no longer present Electronically Signed On 05-31-19 07:58:16 CDT by Pop Youngblood
--- NOTE | 2019-05-31 10:50 | RAD REPORT ---
EXAM DESCRIPTION: RAD - Chest Single View - 05/30/2019 9:00 pm CLINICAL HISTORY: PAIN Chest pain. COMPARISON: Chest Pa And Lat (2 Views) dated 04/16/2019; Chest Single View dated 04/28/2017; Chest Pa A nd Lat (2 Views) dated 03/30/2017; Head C Spine Mpr Wo Con dated 05/30/2019 FINDINGS: Portable technique limits examination quality. Right apical lung opacity is again noted, appearing slightly progressive since the comparative study. Lungs are otherwise clear. The heart is normal in size. No displaced fractures. IMPRESSION: Mild progression right apical lung opacity since comparative study.
== END 2019-05-31 00:15 | disposition short-term general hospital (02) ==
LOC: ER 19:45
DX: S06.6X0A Traumatic subarachnoid hemorrhage without loss of consciousness, initial encounter (principal); W01.198A Fall on same level from slipping, tripping and stumbling with subsequent striking against other object, initial encounter; Y93.01 Activity, walking, marching and hiking; Y92.009 Unspecified place in unspecified non-institutional (private) residence as the place of occurrence of the external cause; I10 Essential (primary) hypertension; E11.9 Type 2 diabetes mellitus without complications; E78.5 Hyperlipidemia, unspecified; Z79.82 Long term (current) use of aspirin
CPT/HCPCS: 36415; 70450; 71045; 72125; 80048; 80076; 83735; 83880; 84484; 85025; 85610; 93005; 99285

== ENCOUNTER 2021-02-06 19:46 | Observation (INO) | payer OTHER ==
--- OUTSIDE RECORDS SUMMARY | 2021-02-06 19:50 | XMS REPORT | Continuity of Care Document ---
:1945 Author Organization [facility] t Address [address] [place] [address] Care Team Providers Name Role Phone MUNGUIA, E Primary Care Physician Unavailable KEO DOVER Attending Clinician Unavailable Keo [place] MD Attending Clinician RADIOLOGY Attending Clinician Unavailable Radiology Attending Clinician Unavailable KEYA SIFUENTES Attending Clinician Unavailable Kyle DOVER Attending Clinician Unavailable LALO Admitting Clinician Unavailable KEYA SIFUENTES Admitting Clinician Unavailable Kyle DOVER Admitting Clinician Unavailable Payers Payer Name Policy Type Policy Number Effective Date Expiration Date S ource TOTALCARE SNP [id number] 2018 MEDICARE HMO-CIGNA 00:00:00 [facility]-MEDICAID - [id number] MEDICAID GENERIC PPO - [id number] GENERIC PAYOR MEDICARE PART A \T\ [id number] 2018 B - MEDICARE 00:00:00 00:00:00 ZZO-MEDICARE - [id number] [facility] [id number] 2019 00:00:00 [facility] [id number] 2019 00:00:00 Problems Condition Condition Condition Status Onset Resolution Last Treating Co mments Source Name Details Category Date Date Treatment Clinician Date Primary Primary Disease Active [facility] 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) of (POAG) of 00 Medi brandon left eye, left eye, e severe severe 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[facility] 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) of (POAG) of 00 Medi brandon left eye, left eye, e severe severe stage stage Allergies, Adverse Reactions, Alerts Allergy Allergy Status Severity Reaction(s) Onset Inactive Treating Comm ents Source Name Type Date Date Clinician NO KNOWN Drug Active Univers ALLERGIE Class ity of S [facility] NO KNOWN Allergy Active [facility] ALLERGIE S Social History Social Habit Start Date Stop Date Quantity Comments Source Exposure to Not sure [facility] SARS-CoV-2 (event) Medica l Branch Sex Assigned [facility] llege of Medicine Tobacco use and 2019-11-13 2019-11-13 Never used [facility] Co llege of exposure 00:00:00 00:00:00 Medicine Smoking Status Start Date Stop Date Source Unknown if ever smoked [facility] Never smoker [facility] o f Medicine Medications Ordered Filled Start Stop Current Ordering Indication Dosage Frequency Signature Comments Components Source Medication Medication Date Date Medication? Clinician (SIG) Name Name fluorometho 2019-0 Yes 1[drp] Place 1 [facility] (FML) 3-09 Drop into Aida ege 0.1 % 00:00: the left of ophthalmic 00 eye daily. Med icin suspension e fluorometho 2019-0 Yes 1[drp] Place 1 [facility] (FML) 3-09 Drop into Aida ege 0.1 % 00:00: the left of ophthalmic 00 eye daily. Med icin suspension e AMLODIPINE Yes Take by [facility] antonio BESYLATE OR 7-15 mouth. Colleg e 18:40: of 59 Medicin e TRAZODONE Yes Take by Bayl or HCL OR 7-15 mouth. College 18:40: of 59 Medicin e metformin Yes 1000mg Take 1,000 Tony (GLUCOPHAGE 7-15 mg by [place] ) 1000 MG 18:40: mouth 2 of tablet 59 times Medicin daily e (with meals). metoprolol Yes 50mg Take 50 mg [facility] (TOPROL-XL) 7-15 by mouth. Col lege 50 MG XL 18:40: of tablet 59 Medicin e simvastatin Yes 20mg Take 20 mg [facility] (ZOCOR) 20 7-15 by mouth Colle ge MG tablet 18:40: every of 59 evening. Medicin e lisinopril 2019-0 Yes 40mg Take 40 mg [facility] (PRINIVIL, 7-15 by mouth Colle ge ZESTRIL) 40 18:40: daily. of MG tablet 59 Medicin e GLIPIZIDE 2019-0 Yes Take by [facility]l or OR 7-15 mouth. College 18:40: of 59 Medicin e AMLODIPINE 2019-0 Yes Take by [facility] antonio BESYLATE OR 7-15 mouth. Colleg e 18:40: of 59 Medicin e TRAZODONE 2019-0 Yes Take by Bayl or HCL OR 7-15 mouth. College 18:40: of 59 Medicin e metformin 2019-0 Yes 1000mg Take 1,000 Tony (GLUCOPHAGE 7-15 mg by [place] ) 1000 MG 18:40: mouth 2 of tablet 59 times Medicin daily e (with meals). metoprolol 2019-0 Yes 50mg Take 50 mg [facility] (TOPROL-XL) 7-15 by mouth. Col lege 50 MG XL 18:40: of tablet 59 Medicin e simvastatin 2019-0 Yes 20mg Take 20 mg [facility] (ZOCOR) 20 7-15 by mouth Colle ge MG tablet 18:40: every of 59 evening. Medicin e lisinopril 2019-0 Yes 40mg Take 40 mg [facility] (PRINIVIL, 7-15 by mouth Colle ge ZESTRIL) 40 18:40: daily. of MG tablet 59 Medicin e GLIPIZIDE 2019-0 Yes Take by [facility]l or OR 7-15 mouth. [place] 18:40: of 59 Medicin e fluorometho 2019-0 Yes 1[drp] Place 1 [facility] (FML) 6-10 Drop into Aida ege 0.1 % 00:00: the left of ophthalmic 00 eye daily. Med icin suspension e fluorometho 2019-0 Yes 1[drp] Place 1 [facility] (FML) 6-10 Drop into Aida ege 0.1 % 00:00: the left of ophthalmic 00 eye daily. Med icin suspension e diflupredna 2018-0 2020- No 1[drp] Place 1 [facility] te 3-04 03-09 Drop into College (DUREZOL) 00:00: 00:00 the left of 0.05 % 00 :00 eye four Medicin ophthalmic times e emulsion daily. fluorometho 2020- No 1[drp] Place 1 [facility] velasquez (FML) 03-07 Drop into Col lege 0.1 % 00:00: 00:00 the left of ophthalmic 00 :00 eye daily. Med icin suspension e Procedures Procedure Date / Time Performed Performing Clinician Sourc e CT HEAD WO CONTRAST 2019-06-06 20:39:43 Requisition, Paper Unive [facility] Plan of Care Planned Activity Planned Date Details Comments Source Future Scheduled Test COLON CANCER SCREENING: [facility] COLONOSCOPY [code = Medicine COLON CANCER SCREENING: COLONOSCOPY] Future Scheduled Test TETANUS SHOT (ADULT) [facility] [code = TETANUS SHOT Medicin e (ADULT)] Future Scheduled Test FALL SCREEN [code = [facility] FALL SCREEN] Medicine Future Scheduled Test PNEUMOVAX >=65 (PPSV23) [facility] [code = PNEUMOVAX >=65 Medic ine (PPSV23)] Future Scheduled Test PREVNAR >= 65 (PCV13) [facility] [code = PREVNAR >= 65 Medici ne (PCV13)] Future Scheduled Test MEDICARE AWV (Initial) [facility] [code = MEDICARE AWV Medicin e (Initial)] Future Scheduled Test FLU VACCINE > 6 MONTHS [facility] [code = FLU VACCINE > 6 Medi cine MONTHS] Future Scheduled Test TETANUS SHOT (ADULT) [facility] [code = TETANUS SHOT Medicin e (ADULT)] Future Scheduled Test HEPATITIS C SCREENING [facility] [code = HEPATITIS C Medicine SCREENING] Future Scheduled Test ZOSTER VACCINE (1 of 2) [facility] [code = ZOSTER VACCINE Medic ine (1 of 2)] Future Scheduled Test FALL SCREEN [code = [facility] FALL SCREEN] Medicine Future Scheduled Test MEDICARE AWV (Initial) [facility] [code = MEDICARE AWV Medicin e (Initial)] Future Scheduled Test FLU VACCINE > 6 MONTHS [facility] [code = FLU VACCINE > 6 Medi cine MONTHS] Encounters Start End Encounter Admission Attending Care Care Encounter Source Date/Time Date/Time Type Type Clinicians Facility Department ID 2019-05-31 Inpatient SLE SLE [id number] [facility] 01:10:00 [id number] 2020-11-13 2020-11-13 Outpatient ABEBA, [facility] [id number] [facility] 13:38:32 15:11:57 LALO Colle ge of Medicin e 2019-11-13 2019-11-13 Office Abeba [facility] [id number] [facility] 15:10:14 15:20:14 Visit Lalo AMBULATOR [id number] College Keo Y 0.2.7.2.686 of [id number] [facility] 300 e 2019-11-13 2019-11-13 Office Abeba [facility] [id number] 15:10:14 15:20:14 Visit Lalo AMBULATOR [id number] Keo Y 0.2.7.2.686 [id number] 300 2019-06-06 2019-06-06 Outpatient R RADIOLOGY [facility] [id number] Univers 15:06:52 23:59:00 ity of [facility] 2019-06-06 2019-06-06 [facility] Radiology [facility] [id number] [facility] 15:00:00 23:59:00 Encounter [place] [facility].13.10 [facility] 4.2.7.2.686 [facility] [id number] [address] 2019-06-06 2019-06-06 [facility] Radiology [facility] [id number] 15:00:00 23:59:00 Encounter [place] [id number] [place] [id number] [place] [address] [id number] 801 2019-04-16 2019-04-16 [facility] Abeba [facility] [id number] [facility] 10:11:20 10:21:20 Visit Lalo AMBULATOR 350.1.13.21 College Keo Y 0.2.7.2.686 of [id number] [facility] 300 e 2019-04-16 2019-04-16 [facility] Abeba [facility] [id number] 10:11:20 10:21:20 Visit Lalo AMBULATOR [id number] Keo Y 0.2.7.2.686 [id number] 300 Results Test Test Test Results Result Source Description Time Comments Comments CT HEAD WO 2019-05- No acute intracranial Un iversity of CONTRAST 29 abnormality. Mild global [facility] 20:55:15 volume [facility]CT HEAD [facility] CONTR[facility] HISTORY: Male 73 years ?Urgent external referral COMPARISON: None TECHNIQUE: Routine CT head without contrast FINDINGS: The ventricles and cerebral sulci are prominent commensurate with theobserved degree of mild global volume loss. No hydrocephalus, midline shiftor pathological extra-axial fluid collection is present. The basal cisterns are unremarkable. No acute intracranial hemorrhage or mass effect is present. The angela-whitematter differentiation is preserved. A small, coarse calcification is seenin the left superior frontal gyrus, nonspecific. No parenchymal attenuationabnormality is present. The calvarium and skull base are unremarkable. The mastoid air cells andvisualized paranasal air sinuses are clear. A right orbital implant anocular prosthesis are incidentally noted. [facility], Radiant Results Inft User - 06/06/2019 3:56 PM CDTCT HEAD WO CONTRASTHISTORY: Male 73 years Urgent external referralCOMPARISON: NoneTECHNIQUE: Routine CT head without contrastFINDINGS:The ventricles and cerebral sulci are prominent commensurate with theobserved degree of mild global volume loss. No hydrocephalus, midline shiftor pathological extra-axial fluid collection is present.The basal cisterns are unremarkable.No acute intracranial hemorrhage or mass effect is present. The angela-whitematter differentiation is preserved. A small, coarse calcification is seenin the left superior frontal gyrus, nonspecific. No parenchymal attenuationabnormality is present.The calvarium and skull base are unremarkable. The mastoid air cells andvisualized paranasal air sinuses are clear. A right orbital implant anocular prosthesis are incidentally noted.IMPRESSIONNo acute intracranial abnormality.Mild global volume loss SARS-COV2/RT-PCR ([facility]) 2019-06-01 09:49:00 Test Item Value Reference Range Interpretation Comme nts SARS-COV2/RT-PCR (test code = 2120109) Not Detected Not Detected, N egative SARS-COV-2 PERFORMING LAB (test code = [facility] 9168826) Negative results do not preclude SARS-CoV-2 infection and should not be used as the sole basis for patient management decisions. Negative results must be combined with clinical observations, patient history, and epidemiological information.Optimum specimen types and timing for peak viral levels during infections caused by SARS-CoV-2 have not been determined. Collection of multiple specimens or types of specimens may be necessary to detect virus. Improper specimen collection and handling, sequence variability under primers/probes, or organism present below the limit of detection may lead to false negative results. Positive and negative predictive values of testing are highly dependent on prevalence. False negative test results are more likely when prevalence is high.UNLESS OTHERWISE INDICATED, ALL TESTING PERFORMED AT [facility] [address] [place] [id number] [employer] AGENT: CALEB DAVIS M.D. CLIA NUMBER [id number] [facility] [place]. [id number] expected result is Negative (Not Detected). The SARS-CoV-2 test is intended for the qualitative detection of nucleic acid from SARS-CoV-2 in nasopharyngeal and oropharyngeal swab samples from patients who meet COVID-19 clinical and/or epidemiological criteria. For lower respiratory tract specimens, theassay is submitted for authorization by FDA under an Emergency Use Authorization (EUA). Testing methodology is real-time RT-PCR. If received as separate collection devices, nasopharyngeal and edward- pharyngeal specimens are combined for analysis. Additional specimens may be split to a separate accession for analysis and reporting as this test includes a single unit of service. Test results must be correlated with clinical presentation and evaluated in the context of other laboratory and epidemiologic data. Test performance can be affected because the epidemiology and clinical spectrum of infectioncaused by SARS-CoV-2 is not fully known. For example, the optimum types of specimens to collect and when during the course of infection these specimens are most likely to contain detectable viral RNA may not be known. This test has not been Food and Drug Administration (FDA) cleared or approved and has been authorized by FDA under an Emergency Use Authorization (EUA). The test is only authorized for the duration of the declaration that circumstances exist justifying the authorization of emergency use of in vitro diagnostic tests for detection and/or diagnosis of SARS-CoV-2 under Section 564(b)(1) of the Act, 21 U.S.C. section 360bbb-3(b)(1), unless the authorization is terminated or revoked sooner. [facility] are certified under the Clinical Laboratory Improvement Amendments of 1988 (CLIA), 42 U.S.C. section 263a, to perform high complexity tests.POCT-GLUCOSE [id number] 08:57:00 Test Item Value Reference Range Interpretation Comments POC-GLUCOSE METER 171 mg/dL 70-110 H : TESTED A T [facility] 6720 (BEAKER) (test code = [place], 1538) [id number]: Lineman Apprentice/Techni reynold ID = [id number] for Dennys Grey BASIC METABOLIC [id number] 06:00:00 Test Item Value Reference Range Interpretation Comments SODIUM (BEAKER) 136 meq/L 136-145 (test code = 381) POTASSIUM (BEAKER) 4.0 meq/L 3.5-5.1 (test code = 379) CHLORIDE (BEAKER) 105 meq/L 98-107 (test code = 382) CO2 (BEAKER) (test 22 meq/L 22-29 code = 355) BLOOD UREA NITROGEN 12 mg/dL 7-21 (BEAKER) (test code = 354) CREATININE (BEAKER) 1.06 mg/dL 0.57-1.25 (test code = 358) GLUCOSE RANDOM 183 mg/dL 70-105 H (BEAKER) (test code = 652) CALCIUM (BEAKER) 9.3 mg/dL 8.4-10.2 (test code = 697) EGFR (BEAKER) (test 68 mL/min/1.73 ESTIMA AILEEN GFR IS code = 1092) sq m NOT ACCURATE CREATININE CLEARANCE IN PREDICTING GLOMERULAR FILTRATION RATE . ESTIMATED GFR I S NOT APPLICABLE FOR DIALYSIS PATIEN TS. Lineman Apprentice ID - DBCBC W/PLT COUNT & AUTO [id number] 05:09:00 Test Item Value Reference Range Interpretation Comments WHITE BLOOD CELL COUNT (BEAKER) 8.5 K/ L 3.5-10.5 (test code = 775) RED BLOOD CELL COUNT (BEAKER) 4.90 M/ L 4.63-6.08 (test code = 761) HEMOGLOBIN (BEAKER) (test code = 14.8 GM/DL 13.7-17.5 410) HEMATOCRIT (BEAKER) (test code = 43.8 % 40.1-51.0 411) MEAN CORPUSCULAR VOLUME (BEAKER) 89.4 fL 79.0-92.2 (test code = 753) MEAN CORPUSCULAR HEMOGLOBIN 30.2 pg 25.7-32.2 (BEAKER) (test code = 751) MEAN CORPUSCULAR HEMOGLOBIN CONC 33.8 GM/DL 32.3-36.5 (BEAKER) (test code = 752) RED CELL DISTRIBUTION WIDTH 12.4 % 11.6-14.4 (BEAKER) (test code = 412) PLATELET COUNT (BEAKER) (test 204 K/CU MM 150-450 code = 756) MEAN PLATELET VOLUME (BEAKER) 10.7 fL 9.4-12.4 (test code = 754) NUCLEATED RED BLOOD CELLS 0 /100 WBC 0-0 (BEAKER) (test code = 413) NEUTROPHILS RELATIVE PERCENT 57 % (BEAKER) (test code = 429) LYMPHOCYTES RELATIVE PERCENT 31 % (BEAKER) (test code = 430) MONOCYTES RELATIVE PERCENT 9 % (BEAKER) (test code = 431) EOSINOPHILS RELATIVE PERCENT 2 % (BEAKER) (test code = 432) BASOPHILS RELATIVE PERCENT 0 % (BEAKER) (test code = 437) NEUTROPHILS ABSOLUTE COUNT 4.83 K/ L 1.78-5.38 (BEAKER) (test code = 670) LYMPHOCYTES ABSOLUTE COUNT 2.65 K/ L 1.32-3.57 (BEAKER) (test code = 414) MONOCYTES ABSOLUTE COUNT (BEAKER) 0.79 K/ L 0.30-0.82 (test code = 415) EOSINOPHILS ABSOLUTE COUNT 0.16 K/ L 0.04-0.54 (BEAKER) (test code = 416) BASOPHILS ABSOLUTE COUNT (BEAKER) 0.03 K/ L 0.01-0.08 (test code = 417) IMMATURE GRANULOCYTES-RELATIVE 0 % 0-1 PERCENT (BEAKER) (test code = 2801) CT BRAIN WITHOUT IV CONTRAST - [id number] 14:06:00FINAL REPORT CT, BRAIN, WITHOUT IV CONTRAST - PORTABLE CLINICAL INDICATION: S ubarachnoid hemorrhage, follow-up COMPARISON: None TECHNIQUE: Noncontrast axial CT imaging of the brain and skull. DOSE REDUCTION: Dose modulation, iterative reconstruction, and/or weight-based adjustment of the mA/kV was utilized to reduce the radiation dose to as low as reasonably achievable. FINDINGS:No intracranial hemorrhage, midline shift or mass effect. Midline structures are normally developed. Mild chronic microvascular ischemic changes of the periventricular and subcortical white matter are present. No hydrocephalus. Discretion Right orbital prosthesis. Prior left lung surgery. No obstructive paranasal sinus disease. IMPRESSION: No subarachnoid hemorrhage apparent by portable CT If there is persistent clinical concern for intracranial pathology, MR examination is recommended for further characterization. Signed: Sara Rosales Verified Date/Time: 05/31/2019 14:06:16 Reading Location: [address] Neuro Reading Room POCT-GLUCOSE [id number] 12:22:00 Test Item Value Reference Range Interpretation Comments POC-GLUCOSE METER 308 mg/dL 70-110 H : TESTED A T [facility] 6720 (BEAKER) (test code = [facility], 153) [id number]: Lineman Apprentice/Techni reynold ID = [id number] for AMADA MARIE [id number] 07:11:00 Test Item Value Reference Range Interpretation Comments PHOSPHORUS (BEAKER) (test code = 3.0 mg/dL 2.3-4.7 604) Lineman Apprentice ID - NEELIMA [id number] 07:11:00 Test Item Value Reference Range Interpretation Comments MAGNESIUM (BEAKER) (test code = 1.9 mg/dL 1.6-2.6 627) Lineman Apprentice ID - NEELIMA MPOCT-GLUCOSE [id number] 07:04:00 Test Item Value Reference Range Interpretation Comments POC-GLUCOSE METER 186 mg/dL 70-110 H : TESTED A T [facility] 6720 (BEAKER) (test code = [facility], 153) [id number]: Lineman Apprentice/Techni reynold ID = [id number] for TRI QUACH PROTHROMBIN [id number] 07:02:00 Test Item Value Reference Range Interpretation Comments PROTIME (BEAKER) (test code = 13.2 seconds 11.9-14.2 759) INR (BEAKER) (test code = 370) 1.0 <=5.9 Effective 07/05/2018: PT Reference Range ChangeNew: 11.9-14.2 Previous: 11.7- 14.7RECOMMENDED COUMADIN/WARFARIN INR THERAPY RANGESSTANDARD DOSE: 2.0-3.0 Includes: PROPHYLAXIS for venous thrombosis, systemic embolization; TREATMENT for venous thrombosis and/or pulmonary embolus.HIGH RISK: Target INR is2.5-3.5 for patients wiht mechanical heart valves.[id number] 07:02:00 Test Item Value Reference Range Interpretation Comments PARTIAL THROMBOPLASTIN TIME 27.6 seconds 22.5-36.0 (BEAKER) (test code = 760) TROPONIN [id number] 05:28:00 Test Item Value Reference Range Interpretation Comments TROPONIN I (BEAKER) (test code = 397) < ng/mL 0.00-0.03 Troponin I (TnI) levels must be interpreted in the context of the presenting symptoms and the clinical findings. Elevated TnI levels indicate myocardial damage, but are not specific for ischemic heart disease. Elevated TnI levels are seen in patients with other cardiac conditions (including myocarditis and congestive heart failure), and slight TnI elevations occur in patients with other conditions, including sepsis, renal failure, acidosis, acute neurological disease, and persistent tachyarrhythmia.Lineman Apprentice ID - NEELIMA [id number] 05:21:00 Test Item Value Reference Range Interpretation Comments PHOSPHORUS (BEAKER) (test code = 3.2 mg/dL 2.3-4.7 604) Lineman Apprentice ID - NEELIMA [id number] 05:21:00 Test Item Value Reference Range Interpretation Comments MAGNESIUM (BEAKER) (test code = 2.1 mg/dL 1.6-2.6 627) Lineman Apprentice ID - NEELIMA MBASIC METABOLIC [id number] 05:21:00 Test Item Value Reference Range Interpretation Comments SODIUM (BEAKER) 137 meq/L 136-145 (test code = 381) POTASSIUM (BEAKER) 4.2 meq/L 3.5-5.1 (test code = 379) CHLORIDE (BEAKER) 103 meq/L 98-107 (test code = 382) CO2 (BEAKER) (test 24 meq/L 22-29 code = 355) BLOOD UREA NITROGEN 12 mg/dL 7-21 (BEAKER) (test code = 354) CREATININE (BEAKER) 1.18 mg/dL 0.57-1.25 (test code = 358) GLUCOSE RANDOM 185 mg/dL 70-105 H (BEAKER) (test code = 652) CALCIUM (BEAKER) 9.5 mg/dL 8.4-10.2 (test code = 697) EGFR (BEAKER) (test 60 mL/min/1.73 ESTIMA AILEEN GFR IS code = 1092) sq m NOT ACCURATE CREATININE CLEARANCE IN PREDICTING GLOMERULAR FILTRATION RATE . ESTIMATED GFR I S NOT APPLICABLE FOR DIALYSIS PATIEN TS. Lineman Apprentice ID - NEELIMA EPATIC FUNCTION [id number] 05:21:00 Test Item Value Reference Range Interpretation Comments TOTAL PROTEIN (BEAKER) (test code = 7.9 gm/dL 6.0-8.3 770) ALBUMIN (BEAKER) (test code = 1145) 4.8 g/dL 3.5-5.0 BILIRUBIN TOTAL (BEAKER) (test code 0.5 mg/dL 0.2-1.2 = 377) BILIRUBIN DIRECT (BEAKER) (test 0.2 mg/dL 0.1-0.5 code = 706) ALKALINE PHOSPHATASE (BEAKER) (test 61 U/L 40-150 code = 346) AST (SGOT) (BEAKER) (test code = 22 U/L 5-34 353) ALT (SGPT) (BEAKER) (test code = 33 U/L 6-55 347) Lineman Apprentice ID - NEELIMA [id number] 05:10:00 Test Item Value Reference Range Interpretation Comments PARTIAL THROMBOPLASTIN TIME 27.8 seconds 22.5-36.0 (BEAKER) (test code = 760) PROTHROMBIN [id number] 05:09:00 Test Item Value Reference Range Interpretation Comments PROTIME (BEAKER) (test code = 13.0 seconds 11.9-14.2 759) INR (BEAKER) (test code = 370) 1.0 <=5.9 Effective 07/05/2018: PT Reference Range ChangeNew: 11.9-14.2 Previous: 11.7- 14.7RECOMMENDED COUMADIN/WARFARIN INR THERAPY RANGESSTANDARD DOSE: 2.0-3.0 Includes: PROPHYLAXIS for venous thrombosis, systemic embolization; TREATMENT for venous thrombosis and/or pulmonary embolus.HIGH RISK: Target INR is2.5-3.5 for patients wiht mechanical heart valves.CBC W/PLT COUNT & AUTO [id number] 04:47:00 Test Item Value Reference Range Interpretation Comments WHITE BLOOD CELL COUNT (BEAKER) 9.2 K/ L 3.5-10.5 (test code = 775) RED BLOOD CELL COUNT (BEAKER) 4.85 M/ L 4.63-6.08 (test code = 761) HEMOGLOBIN (BEAKER) (test code = 15.5 GM/DL 13.7-17.5 410) HEMATOCRIT (BEAKER) (test code = 43.7 % 40.1-51.0 411) MEAN CORPUSCULAR VOLUME (BEAKER) 90.1 fL 79.0-92.2 (test code = 753) MEAN CORPUSCULAR HEMOGLOBIN 32.0 pg 25.7-32.2 (BEAKER) (test code = 751) MEAN CORPUSCULAR HEMOGLOBIN CONC 35.5 GM/DL 32.3-36.5 (BEAKER) (test code = 752) RED CELL DISTRIBUTION WIDTH 12.1 % 11.6-14.4 (BEAKER) (test code = 412) PLATELET COUNT (BEAKER) (test 184 K/CU MM 150-450 code = 756) MEAN PLATELET VOLUME (BEAKER) 11.1 fL 9.4-12.4 (test code = 754) NUCLEATED RED BLOOD CELLS 0 /100 WBC 0-0 (BEAKER) (test code = 413) NEUTROPHILS RELATIVE PERCENT 56 % (BEAKER) (test code = 429) LYMPHOCYTES RELATIVE PERCENT 37 % (BEAKER) (test code = 430) MONOCYTES RELATIVE PERCENT 6 % (BEAKER) (test code = 431) EOSINOPHILS RELATIVE PERCENT 1 % (BEAKER) (test code = 432) BASOPHILS RELATIVE PERCENT 0 % (BEAKER) (test code = 437) NEUTROPHILS ABSOLUTE COUNT 5.13 K/ L 1.78-5.38 (BEAKER) (test code = 670) LYMPHOCYTES ABSOLUTE COUNT 3.40 K/ L 1.32-3.57 (BEAKER) (test code = 414) MONOCYTES ABSOLUTE COUNT (BEAKER) 0.52 K/ L 0.30-0.82 (test code = 415) EOSINOPHILS ABSOLUTE COUNT 0.09 K/ L 0.04-0.54 (BEAKER) (test code = 416) BASOPHILS ABSOLUTE COUNT (BEAKER) 0.04 K/ L 0.01-0.08 (test code = 417) IMMATURE GRANULOCYTES-RELATIVE 0 % 0-1 PERCENT (BEAKER) (test code = 2801) RAD, CHEST, 1 VIEW, NON [id number] 03:50:00Reason for exam:->cough every morningShould this be performed at the bedside?->YesFINAL REPORT RAD, CHEST, 1 VIEW, NON DEPT INDICATION: cough every morning COMP ARISON: None FINDINGS: Portable frontal view of the chest. IMPRESSION: Support Lines: None Lungs and pleura: Mildly hypoinflated lungs with bibasilar subsegmental atelectasis. No consolidation. Asymmetric hazy opacification of the right lung apex suspected to be secondary to overlapping structures.However, consider CT for confirmation to exclude an underlying lesion. No pneumothorax or pleural effusion.Heart and mediastinum: Stable contours. Unremarkable mediastinal contoursAdditional findings: None. Signed: [facility] Verified Date/Time: 05/31/2019 03:50:27 POCT-GLUCOSE [id number] 12:19:00 Test Item Value Reference Range Interpretation Comments POC-GLUCOSE METER 110 mg/dL 70-[address] [facility] [address] ([facility] [place]) (test code CAMBRIDG E SAVANNAHDG B = 1538) [facility] 7703 0 POCT-GLUCOSE [id number] 10:32:00 Test Item Value Reference Range Interpretation Comments POC-GLUCOSE METER 125 mg/dL 70-[address] [facility] [address] ([facility] [place]) (test code CAMBRIDG E SAVANNAHDG B = 1538) [facility] 7703 0
--- NOTE | 2021-02-06 20:09 | RAD REPORT ---
EXAM DESCRIPTION: CT - Ct Stroke Brain Wo Cont - 02/06/2021 8:02 pm CLINICAL HISTORY: AMS COMPARISON: Head Brain Wo Cont dated 11/09/2019 TECHNIQUE: Axial 5 millimeter thick images of the head were obtained without IV contrast. All CT scans are performed using dose optimization technique as appropriate and may include automated exposure control or mA/KV adjustment according to patient size. FINDINGS: No intracranial hemorrhage, mass, or cerebral edema. No acute cortical infarction identifi able. No cortical edema or sulcal effacement. Moderate atrophy and chronic ischemic changes are prese nt similar to the 2019 comparison. Ventricles are in proportion to the amount of volume loss. Arteria l calcifications are present. Aguilera matter-white matter differentiation is preserved. Visualized portions of the mastoid air cells, paranasal sinuses, and orbits are unremarkable. 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 Findings telephoned to Dr. Jackson 8:05 p.m. IMPRESSION: No CT evidence of acute intracranial process. Atrophy and chronic ischemic changes match the 2019 comparison.
[2021-02-06 20:37] LABS: Absolute Lymphocytes (CBC) 1.8 K/uL (0.7-4.9); Hematocrit 41.4 % (39.6-49.0); Lymphocytes % 25.2 % (15.3-44.8); MPV 8.8 fL (7.6-11.3); RBC Red Blood Cell Count 4.52 M/uL (4.33-5.43)
[2021-02-06 20:44] LABS: Protime INR 0.97
--- NOTE | 2021-02-06 21:01 | RAD REPORT ---
EXAM DESCRIPTION: RAD - Chest Single View - 02/06/2021 8:26 pm CLINICAL HISTORY: AMS, Stroke protocol chest film COMPARISON: May 2019 TECHNIQUE: AP portable chest image was obtained 02/06/2021 8:26 pm . FINDINGS: No focal mass or consolidation. Lung volumes are low. Chronic interstitial pattern matches comparison. Heart and vasculature are normal. No measurable pleural effusion and no pneumothorax. No acute bony abnormality seen. No acute aortic findings suspected. IMPRESSION: No acute cardiopulmonary process. Above detailed findings stable from May 2019
[2021-02-06 21:04] LABS: ALT/SGPT 31 U/L (12-78); AST/SGOT 20 U/L (15-37); Alkaline Phosphatase 80 U/L (45-117); BUN Blood Urea Nitrogen 17 mg/dL (7-18); Bicarbonate 23 mmol/L (21-32); Bilirubin Direct 0.1 mg/dL (0-0.2); Bilirubin Total 0.4 mg/dL (0.2-1.0); CKMB Creatine Kinase MB < 1.0 ng/mL (1.0-3.6); Creatine Phosphokinase 88 U/L (39-308); Glucose Level 409 mg/dL (74-106); Lipase 181 U/L (73-393); Magnesium 2.3 mg/dL (1.8-2.4); Protein, Total 7.1 g/dL (6.4-8.2); Sodium Level 132 mmol/L (136-145)
[2021-02-06 21:13] LABS: SARS-COV-2 RT PCR POSITIVE (NEGATIVE)
[2021-02-06 22:14] LABS: Arterial Blood Carboxyhemoglob 1.2 % (0-1.5); Blood Gas Oxyhemoglobin 91.6 % (94-97); Blood O2 Saturation 93.7 % (92-98.5)
[2021-02-06] MEDS ORDERED: NA CHLORIDE 0.9% 500 ML ONE (22:26)
[2021-02-06 23:09] LABS: Urine Blood Negative (Negative); Urine Glucose 2+ (Negative); Urine Protein Negative (Negative); Urine Specific Gravity <=1.005 (1.005-1.030); Urine pH 5.5 (5.0-7.0)
--- NOTE | 2021-02-07 00:29 | EDPHYS ---
Physician Documentation [facility] Name: Gilberto Rangel Age: 75 yrs Sex: Male : 1945 Arrival Date: 02/06/2021 Time: 19:53 Bed 16 Private MD: ED Physician Washington Jackson HPI: 02/06 20:10 This 75 yrs old Male presents to ER via Unassigned with complaints of Altered mh7 mental status. 20:10 The patient presents with confusion, decreased mental status. Onset: The mh7 symptoms/episode began/occurred yesterday, at 19:00. Possible causes: CVA or TIA, head injury, a fall, while walking. Associated signs and symptoms: Pertinent positives: confusion, Speech difficulty, Pertinent negatives: abdominal pain, agitation, blurred vision, chest pain, combativeness, diaphoresis, diarrhea, dizziness, headache, lightheadedness, nausea, numbness, palpitations, seizure, shortness of breath, tingling, vertigo, vomiting, weakness. Current symptoms: In the emergency department the patient's symptoms have improved, moderately, is less confused. Patient's baseline: Neuro: alert and fully oriented, Motor: right-sided facial droop, The patient has a previous history of Subarachnoid hemorrhage. According to EMS, patient's family called due to altered mental status which includes confusion and difficulty with speech that started yesterday around 7 PM. They also reported that the patient fell a few days ago without any further details of the fall. At time of examination in the ED patient is awake and alert and denies any complaints and follows commands.. Historical: - Home Meds: 21:20 Aspirin Oral [Active]; Metformin Oral [Active]; Metoprolol Tartrate Oral [Active]; mr2 Simvastatin Oral [Active]; - PMHx: 21:20 Diabetes - NIDDM; Hyperlipidemia; Hypertension; mr2 - Immunization history:: Adult Immunizations up to date. - Social history:: Smoking status: Patient denies any tobacco usage or history of. ROS: 20:10 Constitutional: Negative for fever, chills, and weight loss, Eyes: Negative for injury, mh7 pain, redness, and discharge, ENT: Negative for injury, pain, and discharge, Neck: Negative for injury, pain, and swelling, Cardiovascular: Negative for chest pain, palpitations, and edema, Respiratory: Negative for shortness of breath, cough, wheezing, and pleuritic chest pain, Abdomen/GI: Negative for abdominal pain, nausea, vomiting, diarrhea, and constipation, Back: Negative for injury and pain, : Negative for injury, bleeding, discharge, and swelling, MS/Extremity: Negative for injury and deformity, Skin: Negative for injury, rash, and discoloration, Psych: Negative for depression, anxiety, suicide ideation, homicidal ideation, and hallucinations, Allergy/Immunology: Negative for hives, rash, and allergies, Endocrine: Negative for neck swelling, polydipsia, polyuria, polyphagia, and marked weight changes, Hematologic/Lymphatic: Negative for swollen nodes, abnormal bleeding, and unusual bruising. Exam: 20:10 Constitutional: This is a well developed, well nourished patient who is awake, alert, mh7 and in no acute distress. Head/Face: Normocephalic, atraumatic. Neck: Trachea midline, no thyromegaly or masses palpated, and no cervical lymphadenopathy. Supple, full range of motion without nuchal rigidity, or vertebral point tenderness. No Meningismus. Chest/axilla: Normal chest wall appearance and motion. Nontender with no deformity. No lesions are appreciated. Cardiovascular: Regular rate and rhythm with a normal S1 and S2. No gallops, murmurs, or rubs. Normal PMI, no JVD. No pulse deficits. Respiratory: Lungs have equal breath sounds bilaterally, clear to auscultation and percussion. No rales, rhonchi or wheezes noted. No increased work of breathing, no retractions or nasal flaring. Abdomen/GI: Soft, non-tender, with normal bowel sounds. No distension or tympany. No guarding or rebound. No evidence of tenderness throughout. Back: No spinal tenderness. No costovertebral tenderness. Full range of motion. Skin: Warm, dry with normal turgor. Normal color with no rashes, no lesions, and no evidence of cellulitis. MS/ Extremity: Pulses equal, no cyanosis. Neurovascular intact. Full, normal range of motion. Psych: Awake, alert, with orientation to person, place and time. Behavior, mood, and affect are within normal limits. 20:10 Eyes: Pupils: constricted, right eye, Right eye prosthesis. mh7 20:10 Neuro: Orientation: is normal, Mentation: is normal, Memory: is normal, Cranial nerves: mh7 is grossly normal based on the patient's age, Cerebellar function: is grossly normal, Motor: is normal, Sensation: is normal, Gait: not tested. seizure activity, is not displayed by the patient, Abnormal movements: there are no abnormal movements. Vital Signs: 20:00 BP 155 / 74; Pulse 84; Resp 18; Temp 98.4; Pulse Ox 98% on R/A; Weight 77.11 kg; Height mr2 5 ft. 7 in. (170.18 cm); Pain 02/16; 23:00 BP 134 / 84; Pulse 77; Resp 16; Temp 98.5; Pulse Ox 100% on 2 lpm NC; mr2 02/07 01:29 BP 121 / 71; Pulse 80; Resp 17; Temp 98.4; Pulse Ox 100% on 2 lpm NC; mr2 06:00 BP 142 / 76; Pulse 82; Resp 18; Temp 98.1; Pulse Ox 99% 2 lpm ; mr2 02/06 20:00 Body Mass Index 26.63 (77.11 kg, 170.18 cm) 2 NIH Stroke Scale Scores: 02/06 20:10 NIHSS Score: 1 mh7 MDM: 02/07 00:23 Differential Diagnosis: CVA, electrolyte abnormality, alcohol intoxication, mh7 hypoglycemia, intracranial bleed, overdose, pneumonia, seizure, TIA, UTI, volume depletion. Data reviewed: vital signs, nurses notes, EMS record, old medical records, lab test result(s), cardiac enzymes, CBC, electrolytes, urinalysis, EKG, radiologic studies, CT scan, plain films. Data interpreted: Pulse oximetry: on room air is 98 %. Interpretation: normal. Counseling: I had a detailed discussion with the patient and/or guardian regarding: the historical points, exam findings, and any diagnostic results supporting the discharge/admit diagnosis, the presence of at least one elevated blood pressure reading (>120/80) during this emergency department visit, lab results, radiology results, the need for further work-up and treatment in the hospital. Response to treatment: the patient's symptoms have markedly improved after treatment. Physician consultation: Jonathan Brito MD was contacted at 21:00, regarding patient's condition, Discussed with Dr. Brito, at a TPA candidate due to symptoms starting greater than 24 hours ago. He recommended hyperglycemia control and aspirin.. 00:29 Patient medically screened. [facility] 02/06 19:57 Order name: Basic Metabolic Panel [facility] 02/06 19:57 Order name: CBC with Diff; Complete Time: 20:46 [facility] 02/06 19:57 Order name: CPK [facility] 02/06 19:57 Order name: Ckmb [facility] 02/06 19:57 Order name: Hepatic Function [facility] 02/06 19:57 Order name: Lipase [facility] 02/06 19:57 Order name: Magnesium [facility] 02/06 19:57 Order name: Protime (+inr); Complete Time: 20:46 [facility] 02/06 19:57 Order name: Ptt, Activated; Complete Time: 20:46 [facility] 02/06 19:57 Order name: Troponin (emerg Dept Use Only) [facility] 02/06 19:57 Order name: UDS [facility] 02/06 19:57 Order name: Basic Metabolic Panel [facility] 02/06 19:58 Order name: ETOH Level; Complete Time: 21:03 [facility] 02/06 19:58 Order name: Acetaminophen [facility] 02/06 19:57 Order name: CT Stroke Brain w/o Contrast; Complete Time: 20:24 [facility] 02/06 19:57 Order name: Stroke CXR 1 View; Complete Time: 21:03 [facility] 02/06 19:58 Order name: Salicylate; Complete Time: 21:27 [facility] 02/06 19:59 Order name: COVID-19/FLU A+B (Document "Date of Onset" if Symptomatic); Complete Time: [facility] 21:18 02/06 20:08 Order name: AMMONIA; Complete Time: 21:03 [facility] 02/06 21:42 Order name: Arterial Blood Gas: Venous Blood Gas; Complete Time: 22:16 [facility] 02/06 21:42 Order name: Ketone, Serum; Complete Time: 23:10 [facility] 02/06 23:08 Order name: Urine Dipstick-Ancillary; Complete Time: 23:10 [facility] 02/07 08:24 Order name: Glucose, Ancillary Testing [facility] 02/07 09:17 Order name: CBC with Automated Diff [facility] 02/07 09:36 Order name: Comprehensive Metabolic Panel [facility] 02/07 09:42 Order name: Hemoglobin A1c [facility] 02/07 09:44 Order name: Glucose, Ancillary Testing [facility] 02/07 11:26 Order name: Glucose, Ancillary Testing [facility] 02/07 16:21 Order name: Glucose, Ancillary Testing [facility] 02/06 19:57 Order name: EKG; Complete Time: 19:58 [facility] 02/06 19:57 Order name: Accucheck; Complete Time: 23:17 [facility] 02/06 19:57 Order name: Cardiac monitoring; Complete Time: 20:35 [facility] 02/06 19:57 Order name: EKG - Nurse/Tech; Complete Time: 20:35 [facility] 02/06 19:57 Order name: IV Saline Lock; Complete Time: 20:35 [facility] 02/06 19:57 Order name: Labs collected and sent; Complete Time: 20:35 [facility] 02/06 19:57 Order name: NPO; Complete Time: 20:35 [facility] 02/06 19:57 Order name: O2 Per Protocol; Complete Time: 20:35 [facility] 02/06 19:57 Order name: O2 Sat Monitoring; Complete Time: 20:35 [facility] 02/06 19:57 Order name: Stroke Swallow Screen; Complete Time: 20:35 [facility] 02/06 19:58 Order name: Urine Dipstick-Ancillary (obtain specimen); Complete Time: 23:04 [facility] 02/07 01:25 Order name: CONS Physician Consult [facility] Administered Medications: 02/06 22:29 Drug: NS 0.9% 500 ml Route: IV; Rate: bolus; Site: left antecubital; mr2 Disposition Summary: 02/07/21 00:29 Hospitalization Ordered Hospitalization Status: Inpatient Admission [facility] Provider: Tomy Peace Adrian Condition: Stable [facility] Problem: new [facility] Symptoms: have improved [facility] Bed/Room Type: Standard [facility] Location: [facility] ER HOLD(02/07/21 01:17) Room Assignment: ERHOLD-(02/07/21 01:17) Diagnosis - Type 2 diabetes mellitus with hyperglycemia [facility] - Coronavirus infection, unspecified [facility] - Altered mental status, unspecified(02/07/21 00:30) [facility] Forms: - Medication Reconciliation Form [facility] - SBAR form [facility] NIH Stroke Scale - NIH Stroke Score Date: 02/06/2021 Time: 20:10 Total Score = 1 1a. Level of Consciousness (LOC) - 0(Alert) 1b. Level of Consciousness (LOC) (Month \\T\\ Age) - 0(Both) 1c. LOC Commands (Open \\T\\ Closes Eyes/Sod Stripper) - 0(Both) 2. Best Gaze (Lateral Gaze Paresis) - 1(Partial gaze palsy) 3. Visual Field Loss - 0(No visual loss) 4. Facial Palsy - 0(Normal) 5a. Left Arm: Motor (10-second hold) - 0(No drift) 5b. Right Arm: Motor (10-second hold) - 0(No drift) 6a. Left Leg: Motor (5-second hold - always test supine) - 0(No drift) 6b. Right Leg: Motor (5-second hold - always test supine) - 0(No drift) 7. Limb Ataxia (finger/nose \\T\\ heel/quiros - test with eyes open) - 0(Absent) 8. Sensory Loss (pinprick arms/legs/face) - 0(Normal) 9. Best Language: Aphasia (description/naming/reading) - 0(No aphasia) 10. Dysarthria (speech clarity - read or repeat words) - 0(Normal) 11. Extinction and Inattention (visual/tactile/auditory/spatial/personal) - 0(No abnormality) Initials: [facility] Signatures: Dispatcher [employer] EDMS Akosua Cassidy, RN RN Washington Jackson MD MD 7 Charli Wagner RN RN mr2 Corrections: (The following items were deleted from the chart) 02/07 00:30 00:29 Altered mental status, unspecified - Resolved [place] [id number] 01: 00:29 Telemetry/MedSurg (Inpatient) [facility] : 00:29 [facility]
--- NOTE | 2021-02-07 00:29 | ER ---
Nurse's Notes [facility] Name: Gilberto Rangel Age: 75 yrs Sex: Male : 1945 Arrival Date: 02/06/2021 Time: 19:53 Bed 16 Private MD: Diagnosis: Type 2 diabetes mellitus with hyperglycemia;Coronavirus infection, unspecified;Altered mental status, unspecified Presentation: 02/06 20:00 Chief complaint: Patient states: pt states that yesterday he began to feel numbness and mr2 slight weakness to his r side along w mild aphasia. pt mentioned this to his this evening and she felt he should go to the hospital. pt has prior CVA and has R sided weakness and facial droop from that previous event. pt aox4 and feels that he is currently at his baseline. Coronavirus screen: Vaccine status: Patient reports receiving the 2nd dose of the covid vaccine. Ebola Screen: No symptoms or risks identified at this time. Initial Sepsis Screen: Does the patient meet any 2 criteria? No. Patient's initial sepsis screen is negative. Does the patient have a suspected source of infection? No. Patient's initial sepsis screen is negative. Risk Assessment: Do you want to hurt yourself or someone else? Patient reports no desire to harm self or others. Onset of symptoms was February 05, 2021. 20:00 Method Of Arrival: EMS: [facility] mr2 20:00 Acuity: FILIBERTO 2 mr2 Triage Assessment: 21:20 General: Appears in no apparent distress. comfortable, Behavior is calm, cooperative. mr2 Pain: Denies pain. Historical: - Home Meds: 21:20 Aspirin Oral [Active]; Metformin Oral [Active]; Metoprolol Tartrate Oral [Active]; mr2 Simvastatin Oral [Active]; - PMHx: 21:20 Diabetes - NIDDM; Hyperlipidemia; Hypertension; mr2 - Immunization history:: Adult Immunizations up to date. - Social history:: Smoking status: Patient denies any tobacco usage or history of. Screenin/01 00:10 Abuse screen: Denies threats or abuse. Denies injuries from another. Nutritional mr2 screening: No deficits noted. Tuberculosis screening: No symptoms or risk factors identified. Fall Risk Fall in past 12 months (25 points). Secondary diagnosis (15 points) CVA, IV access (20 points). Vital Signs: 02/06 20:00 BP 155 / 74; Pulse 84; Resp 18; Temp 98.4; Pulse Ox 98% on R/A; Weight 77.11 kg; Height mr2 5 ft. 7 in. (170.18 cm); Pain 02/16; 23:00 BP 134 / 84; Pulse 77; Resp 16; Temp 98.5; Pulse Ox 100% on 2 lpm NC; mr2 02/07 01:29 BP 121 / 71; Pulse 80; Resp 17; Temp 98.4; Pulse Ox 100% on 2 lpm NC; mr2 06:00 BP 142 / 76; Pulse 82; Resp 18; Temp 98.1; Pulse Ox 99% 2 lpm ; mr2 02/06 20:00 Body Mass Index 26.63 (77.11 kg, 170.18 cm) mr2 NIH Stroke Scale Scores: 02/06 20:10 NIHSS Score: 1 [facility] ED Course: 19:53 Patient arrived in ED. bb 19:53 Washington Jackson MD is Attending Physician. 7 19:59 Charli Wagner, PATRICIA is Primary Nurse. mr2 20:02 CT Stroke Brain w/o Contrast In Process Unspecified. EDMS 20:26 Stroke CXR 1 View In Process Unspecified. EDMS 20:35 AMMONIA Sent. mr2 20:35 COVID-19/FLU A+B (Document "Date of Onset" if Symptomatic) Sent. mr2 20:35 Salicylate Sent. mr2 20:35 Acetaminophen Sent. mr2 20:35 ETOH Level Sent. mr2 20:35 Basic Metabolic Panel Sent. mr2 20:35 Basic Metabolic Panel Sent. mr2 21:19 Triage completed. mr2 21:20 Arm band placed on. mr2 02/07 00:01 Inserted saline lock: 18 gauge in left antecubital area, using aseptic technique. mr2 00:02 Patient has correct armband on for positive identification. Bed in low position. Side mr2 rails up X2. 00:27 Tomy Peace is Hospitalizing Provider. [facility] 07:16 No provider procedures requiring assistance completed. mr2 Administered Medications: 02/06 22:29 Drug: NS 0.9% 500 ml Route: IV; Rate: bolus; Site: left antecubital; mr2 Outcome: 02/07 00:29 Decision to Hospitalize by Provider. [facility] 17:26 Patient left the ED. lianne NIH Stroke Scale - NIH Stroke Score Date: 02/06/2021 Time: 20:10 Total Score = 1 1a. Level of Consciousness (LOC) - 0(Alert) 1b. Level of Consciousness (LOC) (Month \\T\\ Age) - 0(Both) 1c. LOC Commands (Open \\T\\ Closes Eyes/Bean Weigher) - 0(Both) 2. Best Gaze (Lateral Gaze Paresis) - 1(Partial gaze palsy) 3. Visual Field Loss - 0(No visual loss) 4. Facial Palsy - 0(Normal) 5a. Left Arm: Motor (10-second hold) - 0(No drift) 5b. Right Arm: Motor (10-second hold) - 0(No drift) 6a. Left Leg: Motor (5-second hold - always test supine) - 0(No drift) 6b. Right Leg: Motor (5-second hold - always test supine) - 0(No drift) 7. Limb Ataxia (finger/nose \\T\\ heel/quiros - test with eyes open) - 0(Absent) 8. Sensory Loss (pinprick arms/legs/face) - 0(Normal) 9. Best Language: Aphasia (description/naming/reading) - 0(No aphasia) 10. Dysarthria (speech clarity - read or repeat words) - 0(Normal) 11. Extinction and Inattention (visual/tactile/auditory/spatial/personal) - 0(No abnormality) Initials: [facility] Signatures: Dispatcher [employer] Francesca Lamas, PATRICIA RN Alka Plascencia Maurice, MD MD [facility] Charli Wagner RN RN mr2
[2021-02-07] MEDS ORDERED: ACETAMINOPHEN 325 MG TABLET ONE (01:39)
--- NOTE | 2021-02-07 02:02 | P.HP ---
Certification for Inpatient Patient admitted to: Observation With expected LOS: <2 Midnights Patient will require the following post-hospital care: None Practitioner: I am a practitioner with admitting privileges, knowledge of patient current condition, hospital course, and medical plan of care. Services: Services provided to patient in accordance with Admission requirements found in Title 42 Section 412.3 of the Code of Federal Regulations Patient History Date of Service: 02/07/21 Reason for admission: AMS, hyperglycemia History of Present Illness: Mr. Rangel is a 75 yo M with T2DM, HTN, HLD who presents with AMS, speech difficulty and dizziness beginning yesterday at 7pm. He also reports numbness in his hands and difficulty walking. He also fell on Tuesday, and hit his head and bruised his hip. He says he felt lightheaded and dizzy before the fall. Over the past week, he has had cough, sore throat, nausea, and decreased appetite and fluid intake. He tested positive for COVID in the ED. Na 132 GFR [address] Head was without acute findings. Case was discussed with neurology who does not suspect acute stroke at that time with instructions to start aspirin and obtain glycemic control. CXR IMPRESSION: No acute cardiopulmonary process. Above detailed findings stable from May 2019 CT HEAD IMPRESSION: No CT evidence of acute intracranial process. Atrophy and chronic ischemic changes match the 2019 comparison. 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 He has 2 children. He is currently disabled. - Family History Father -: Lung disease (Asthma) Mother -: Stroke, Other (see notes) Notes: Thyroid problems Brother -: Hypertension, Stroke Sister -: Cancer Notes: Brain Cancer - Social History Smoking Status: Never smoker Alcohol use: Yes CD- Drugs: No Caffeine use: No Place of Residence: Home Review of Systems 10-point ROS is otherwise unremarkable General: Weakness, Malaise Eyes: Unremarkable ENT: Throat Pain, Unremarkable Respiratory: Cough, Unremarkable Cardiovascular: Unremarkable Gastrointestinal: Nausea Genitourinary: Unremarkable Musculoskeletal: Unremarkable Integumentary: Unremarkable Neurological: Incoordination, Change in Speech, Confusion Physical Examination - Physical Exam General: Alert, In no apparent distress HEENT: Atraumatic, Mucous membr. moist/pink, Sclerae nonicteric Neck: Supple, 2+ carotid pulse no bruit, No LAD, Without JVD or thyroid abnormality Respiratory: Clear to auscultation bilaterally, Normal air movement Cardiovascular: Regular rate/rhythm, Normal S1 S2 Gastrointestinal: Normal bowel sounds, No tenderness Musculoskeletal: No tenderness Integumentary: No rashes Neurological: Normal speech, Normal strength at 5/5 x4 extr, Normal tone, Normal affect Lymphatics: No axilla or inguinal lymphadenopathy - Studies Laboratory Data (last 24 hrs) 02/06/21 20:10: PT 11.1, INR 0.97, APTT 26.8 02/06/21 20:10: WBC 7.10, Hgb 14.1, Hct 41.4, Plt Count 193 02/06/21 20:10: Sodium 132 L, Potassium 4.0, BUN 17, Creatinine 1.22, Glucose 409 H*, Magnesium 2.3, Total Bilirubin 0.4, AST 20, ALT 31, Alkaline Phosphatase 80, Lipase 181 Assessment and Plan - Problems (Diagnosis) (1) COVID Current Visit: Yes Status: Acute (2) AMS (altered mental status) Current Visit: Yes Status: Acute Qualifiers: Altered mental status type: unspecified Qualified Code(s): R41.82 - Altered mental status, unspecified (3) Dehydration Current Visit: Yes Status: Acute (4) Diabetes mellitus Current Visit: No Status: Chronic Qualifiers: Diabetes mellitus type: type 2 Diabetes mellitus intermediate designer insulin use: unspecified intermediate designer insulin use status Diabetes mellitus complication status: with hyperglycemia Qualified Code(s): E11.65 - Type 2 diabetes mellitus with hyperglycemia (5) Hyperlipidemia Current Visit: No Status: Chronic Qualifiers: Hyperlipidemia type: unspecified Qualified Code(s): E78.5 - Hyperlipidemia, unspecified (6) Hypertension Current Visit: No Status: Chronic Qualifiers: Hypertension type: primary hypertension Qualified Code(s): I10 - Essential (primary) hypertension - Plan neurology consulted daily aspirin and statin lipid profile pending continue IV fluid hydration hydralazine PRN for BP spikes sliding scale insulin and accuchecks, A1c pending antitussives PRN, O2 as needed DVT ppx Discharge Plan: Home Plan to discharge in: 24 Hours - Advance Directives Does patient have a Living Will: No Does patient have a Durable POA for Healthcare: No - Code Status/Comfort Care Code Status Assessed: Yes (full code ) Critical Care: No Time Spent Managing Pts Care (In Minutes): 70
[2021-02-07 03:22] LABS: Troponin (Emerg Dept Use Only) < 0.02 ng/mL (0.0-0.045)
[2021-02-07] MEDS ORDERED: INSULIN -REGULAR HUMAN 50 UNIT/0.5 ML ML ONE ×3 (08:16→16:32)
[2021-02-07] MEDS: INSULIN -REGULAR HUMAN 50 UNIT/0.5 ML ML SQ SCH ×3 (08:20→16:43)
[2021-02-07] MEDS ORDERED: ACETAMINOPHEN 500 MG TAB PO PRN (08:20)
[2021-02-07] MEDS ORDERED: ONDANSETRON 4 MG/2 ML VIAL IV PRN (08:20)
[2021-02-07] MEDS ORDERED: NA CHLORIDE 0.9% 1,000 ML IV SCH (08:20)
[2021-02-07] MEDS ORDERED: BENZONATATE 100 MG CAP PO PRN (08:20)
[2021-02-07] MEDS ORDERED: HYDRALAZINE HCL 20 MG/ML VIAL IV PRN (08:20)
[2021-02-07] MEDS ORDERED: NA CHLORIDE 0.9% 1,000 ML ONE ×2 (08:53→10:32)
[2021-02-07] MEDS ORDERED: CEFAZOLIN SODIUM 1 GM/VIAL ONE (08:53)
[2021-02-07] MEDS ORDERED: TETANUS & DIPHTHERIA TOX,ADULT 0.5 ML VIAL ONE (08:53)
[2021-02-07] MEDS ORDERED: ASPIRIN EC 81 MG TAB PO SCH (09:00)
[2021-02-07] MEDS ORDERED: ENOXAPARIN 40 MG/0.4 ML SQ SCH (09:00)
[2021-02-07 09:15] LABS: Absolute Lymphocytes (CBC) 1.9 K/uL (0.7-4.9); Hematocrit 41.7 % (39.6-49.0); Lymphocytes % 28.9 % (15.3-44.8); MPV 8.4 fL (7.6-11.3); RBC Red Blood Cell Count 4.59 M/uL (4.33-5.43)
[2021-02-07 09:36] LABS: Albumin 3.3 g/dL (3.4-5.0); Bilirubin Total 0.5 mg/dL (0.2-1.0); Potassium 3.9 mmol/L (3.5-5.1); Protein, Total 7.6 g/dL (6.4-8.2)
[2021-02-07] MEDS ORDERED: ASPIRIN EC 81 MG TAB PO ONE (10:32)
[2021-02-07] MEDS ORDERED: ENOXAPARIN 40 MG/0.4 ML SQ ONE (11:13)
[2021-02-07 11:51] LABS: Barbiturates NEGATIVE (NEGATIVE); Benzodiazepines NEGATIVE (NEGATIVE); Cocaine NEGATIVE (NEGATIVE); METHAMPHETAM NEGATIVE (NEGATIVE); Methadone NEGATIVE (NEGATIVE); Opiates NEGATIVE (NEGATIVE); Phencyclidine NEGATIVE (NEGATIVE); THC Cannibis NEGATIVE (NEGATIVE)
--- NOTE | 2021-02-07 13:57 | P.DS ---
Admission Date: 02/07/21 Discharge Date: 02/07/21 Disposition: ROUTINE DISCHARGE Discharge Condition: FAIR Reason for Admission: AMS, hyperglycemia - Problems (1) Acute metabolic encephalopathy Current Visit: Yes Status: Acute (2) Type 2 diabetes mellitus with hyperglycemia Current Visit: Yes Status: Acute (3) COVID Current Visit: Yes Status: Acute Brief History of Present Illness: Mr. Rangel is a 75 yo M with T2DM, HTN, HLD who presents with AMS, speech difficulty and dizziness. He also reported numbness in his hands and difficulty walking. He reported falling, hitting his head and bruising his hip. Over the past week, he has had cough, sore throat, nausea, and decreased appetite and fluid intake. He tested positive for COVID in the ED. Na 132 GFR [address] Head was without acute findings. Case was discussed with neurology who does not suspect acute stroke at that time with instructions to start aspirin and obtain glycemic control. Patient hospitalized for further management. Hospital Course: Patient admitted to the medical floor and treated for hyperglycemia with insulin sliding scale. His mental status and neurologic symptoms resolved with hyperglycemia control. Patient was alert and oriented, had no weakness. He was seen by PT, and patient noted to ambulate independently with no gait disturbance. His hemoglobin A1c is 12 indicating patient will need insulin therapy for glycemic control. Vitals are stable. He is asymptomatic from the Covid. Patient was therefore discharged with Lantus insulin. He will also continue Metformin. General: Alert HEENT: Mucous membr. moist/pink Neck: JVD not distended Respiratory: Clear to auscultation bilaterally, Normal air movement Cardiovascular: No edema, Regular rate/rhythm, Normal S1 S2 Gastrointestinal: Soft and benign, Non-distended Musculoskeletal: No swelling Integumentary: No rashes Neurological: Normal strength at 5/5 x4 extr Laboratory Data at Discharge: WBC 6.60 K/uL (4.3-10.9) 02/07/21 09:05 Hgb 14.2 g/dL (13.6-17.9) 02/07/21 09:05 Hct 41.7 % (39.6-49.0) 02/07/21 09:05 Plt Count 226 K/uL (152-406) 02/07/21 09:05 PT 11.1 SECONDS (9.5-12.5) 02/06/21 20:10 INR 0.97 12/31/21 20:10 APTT 26.8 SECONDS (24.3-36.9) 02/06/21 20:10 Sodium 135 mmol/L (136-145) L 02/07/21 09:05 Potassium 3.9 mmol/L (3.5-5.1) 02/07/21 09:05 BUN 10 mg/dL (7-18) 02/07/21 09:05 Creatinine 1.00 mg/dL (0.55-1.3) 02/07/21 09:05 Glucose 249 mg/dL (74-106) H 02/07/21 09:05 Magnesium 2.3 mg/dL (1.8-2.4) 02/06/21 20:10 Total Bilirubin 0.5 mg/dL (0.2-1.0) 02/07/21 09:05 AST 15 U/L (15-37) 02/07/21 09:05 ALT 28 U/L (12-78) 02/07/21 09:05 Alkaline Phosphatase 80 U/L (45-117) 02/07/21 09:05 Lipase 181 U/L (73-393) 02/06/21 20:10 Home Medications: Gabapentin [Neurontin*] 300 mg PO BEDTIME 11/15/14 Lisinopril [Zestril] 40 mg PO BID 11/15/14 Metformin HCl [Glucophage] 1,000 mg PO BID 11/15/14 Simvastatin [Zocor*] 2 mg PO DAILY 11/15/14 Acetaminophen [Tylenol] 325 mg PO Q4H PRN #30 tablet 11/16/14 Alcohol Antiseptic Pads [Alcohol Swabs] 1 each TP TID #100 med..pad 02/07/21 Ascorbic Acid [Vitamin C] 1,000 mg PO TID #180 tablet 02/07/21 Benzonatate [Tessalon Perle*] 100 mg PO TID PRN #30 cap 02/07/21 Blood Sugar Diagnostic [Glucose Test Strip] 1 each MC TID #90 strip 02/07/21 Blood-Glucose Meter [Contour] 1 each MC TID #1 kit 02/07/21 Cholecalciferol (Vitamin D3) [Vitamin D3] 4,000 unit PO DAILY #60 capsule 02/07/21 Insulin Glargine,Hum.rec.anlog [Lantus Solostar] 10 unit SQ DAILY #10 ml 02/07/21 Zinc Sulfate [Zinc Sulfate*] 220 mg PO DAILY #30 cap 02/07/21 New Medications: Alcohol Antiseptic Pads [Alcohol Swabs] 1 each TP TID #100 med..pad Blood-Glucose Meter [Contour] 1 each MC TID #1 kit Blood Sugar Diagnostic [Glucose Test Strip] 1 each MC TID #90 strip Insulin Glargine,Hum.rec.anlog [Lantus Solostar] 10 unit SQ DAILY #10 ml Benzonatate [Tessalon Perle*] 100 mg PO TID PRN #30 cap PRN Reason: Cough Ascorbic Acid [Vitamin C] 1,000 mg PO TID #180 tablet Cholecalciferol (Vitamin D3) [Vitamin D3] 4,000 unit PO DAILY #60 capsule Zinc Sulfate [Zinc Sulfate*] 220 mg PO DAILY #30 cap Diet: ADA Activity: Ad [place] Followup: NONE,NONE [Primary Care Provider] - 1 Week
[2021-02-07 14:11] VITALS: O2SAT 93
[2021-02-07 17:10] VITALS: BMI 23.0
[2021-02-07 17:50] VITALS: BP 142/76; TEMP 98.1
[2021-02-07] MEDS ORDERED: ATORVASTATIN 10 MG TAB PO SCH (21:00)
== END 2021-02-07 17:29 | disposition home or self-care (01) ==
LOC: ER 19:46 → ERHOLD 02-07 01:27
PROVIDERS: ADMIT Internal Medicine; ATTEND Internal Medicine
DX: E11.65 Type 2 diabetes mellitus with hyperglycemia (principal); G93.41 Metabolic encephalopathy; U07.1 COVID-19; E86.0 Dehydration; E11.40 Type 2 diabetes mellitus with diabetic neuropathy, unspecified; I10 Essential (primary) hypertension; E78.5 Hyperlipidemia, unspecified; Z79.84 Long term (current) use of oral hypoglycemic drugs; Z82.3 Family history of stroke; Z82.5 Family history of asthma and other chronic lower respiratory diseases; Z82.49 Family history of ischemic heart disease and other diseases of the circulatory system; Z80.8 Family history of malignant neoplasm of other organs or systems
CPT/HCPCS: 93005; 85025 ×2; 80048; 36415; 80320; 82140; 82010; 83735; 82550; 80329 ×2; 85610; 82947 ×4; 80076; 85730; 81003; 83036; 84484; 82553; 83690; 80053; 0240U; 80307; 70450; 71045; 90714; 82805; 99284; J1650; J7040; J7030 ×2; J0690; G0378 ×2

== ENCOUNTER 2021-07-21 15:40 | Inpatient (IN) | payer OTHER ==
--- OUTSIDE RECORDS SUMMARY | 2021-07-21 15:43 | XMS REPORT | Continuity of Care Document ---
:1945 Author Organization [facility] t Address [address] [place] [address] Care Team Providers Name Role Phone MUNGUIA, [...] Date Expiration Date S ource TOTALCARE SNP [id number] 2018 MEDICARE HMO-CIGNA 00:00:00 [facility]-MEDICAID - [id number] MEDICAID GENERIC PPO - [id number] GENERIC PAYOR MEDICARE PART A \T\ [id number] 2018 B - MEDICARE 00:00:00 00:00:00 [facility]-MEDICARE - [id number] [facility] [id number] 2019 00:00:00 [facility] [id number] 2019 00:00:00 Problems Condition Condition Condition Status Onset Resolution Last Treating Co mments Source Name Details Category Date Date Treatment Clinician Date Primary Primary Disease Active [facility] 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) of (POAG) of 00 Medi brandon left eye, left eye, e severe severe 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[facility] 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) of (POAG) of 00 Medi brandon left eye, left eye, e severe severe stage stage Allergies, Adverse Reactions, Alerts Allergy Allergy Status Severity Reaction(s) Onset Inactive Treating Comm ents Source Name Type Date Date Clinician NO KNOWN Drug Active Univers ALLERGIE Class ity of S [facility] NO KNOWN Allergy Active [facility] ALLERGIE S Social History Social Habit Start Date Stop Date Quantity Comments Source Exposure to Not sure [facility] SARS-CoV-2 (event) Medica l Branch Sex Assigned At [facility] llege of Medicine Tobacco use and 2019-11-13 2019-11-13 Never used [facility] Co llege of exposure 00:00:00 00:00:00 Medicine Smoking Status Start Date Stop Date Source Unknown if ever smoked [facility] Never smoker [facility] o f Medicine Medications Ordered Filled [...] icin suspension e AMLODIPINE Yes Take by Emmons antonio BESYLATE OR 7-15 mouth. Colleg e 18:40: of 59 Medicin e TRAZODONE Yes Take by [facility] HCL OR 7-15 mouth. College 18:40: of 59 Medicin e metformin Yes 1000mg Take 1,000 [facility] (GLUCOPHAGE 7-15 mg by [place] ) 1000 MG 18:40: mouth 2 of tablet 59 times Medicin daily e (with meals). metoprolol Yes 50mg Take 50 mg [facility] (TOPROL-XL) 7-15 by mouth. Col lege 50 MG XL 18:40: of tablet 59 Medicin e simvastatin Yes 20mg Take 20 mg Tony (ZOCOR) 20 7-15 by mouth Colle ge MG tablet 18:40: every of 59 evening. Medicin e lisinopril 2019-0 Yes 40mg Take 40 mg [facility] (PRINIVIL, 7-15 by mouth Colle ge ZESTRIL) 40 18:40: daily. of MG tablet 59 Medicin e GLIPIZIDE 2019-0 Yes Take by [facility] OR 7-15 mouth. College 18:40: of 59 Medicin e AMLODIPINE 2019-0 Yes Take by Emmons antonio BESYLATE OR 7-15 mouth. Colleg e 18:40: of 59 Medicin e TRAZODONE 2019-0 Yes Take by [facility] HCL OR 7-15 mouth. College 18:40: of 59 Medicin e metformin 2019-0 Yes 1000mg Take 1,000 Tony (GLUCOPHAGE 7-15 mg by [place] ) 1000 MG 18:40: mouth 2 of tablet 59 times Medicin daily e (with meals). metoprolol 2019-0 Yes 50mg Take 50 mg [facility] (TOPROL-XL) 7-15 by mouth. Col lege 50 MG XL 18:40: of tablet 59 Medicin e simvastatin 2019-0 Yes 20mg Take 20 mg Tony (ZOCOR) 20 7-15 by mouth Colle ge MG tablet 18:40: every of 59 evening. Medicin e lisinopril 2019-0 Yes 40mg Take 40 mg [facility] (PRINIVIL, 7-15 by mouth Colle ge ZESTRIL) 40 18:40: daily. of MG tablet 59 Medicin e GLIPIZIDE 2019-0 Yes Take by [facility] [facility] OR 7-15 mouth. [place] 18:40: of 59 Medicin e fluorometho 2019-0 [...] diflupredna 2018-0 2020- No 1[drp] Place 1 [facility] te 3-04 03-09 Drop into College (DUREZOL) 00:00: 00:00 the left of 0.05 % 00 :00 eye four Medicin ophthalmic times e emulsion daily. fluorometho 2020- No 1[drp] Place 1 [facility] velasquez (FML) 03-07 Drop into Col lege 0.1 % 00:00: 00:00 the left of ophthalmic 00 :00 eye daily. Med icin suspension e Procedures Procedure Date / Time Performed Performing Clinician Sourc e CT HEAD WO CONTRAST 2019-06-06 20:39:43 Requisition, Paper Unive [facility] Plan of Care Planned Activity Planned Date Details Comments Source Future Scheduled Test COLON CANCER SCREENING: [facility] COLONOSCOPY [code = Medicine COLON CANCER SCREENING: COLONOSCOPY] Future Scheduled Test TETANUS SHOT (ADULT) [facility] [code = TETANUS SHOT Medicin e (ADULT)] Future Scheduled Test FALL SCREEN [code = [facility] FALL SCREEN] Medicine Future Scheduled Test PNEUMOVAX >=65 (PPSV23) [facility] [code = PNEUMOVAX >=65 Medic ine (PPSV23)] Future Scheduled Test PREVNAR >= 65 (PCV13) [facility] [code = PREVNAR >= 65 Medici ne (PCV13)] Future Scheduled Test MEDICARE AWV (Initial) [facility] [code = MEDICARE AWV Medicin e (Initial)] Future Scheduled Test FLU VACCINE > 6 MONTHS [facility] [code = FLU VACCINE > 6 Medi cine MONTHS] Future Scheduled Test TETANUS SHOT (ADULT) [facility] [code = TETANUS SHOT Medicin e (ADULT)] Future Scheduled Test HEPATITIS C SCREENING [facility] [code = HEPATITIS C Medicine SCREENING] Future Scheduled Test ZOSTER VACCINE (1 of 2) [facility] [code = ZOSTER VACCINE Medic ine (1 of 2)] Future Scheduled Test FALL SCREEN [code = [facility] FALL SCREEN] Medicine Future Scheduled Test MEDICARE AWV (Initial) [facility] [code = MEDICARE AWV Medicin e (Initial)] Future Scheduled Test FLU VACCINE > 6 MONTHS [facility] [code = FLU VACCINE > 6 Medi cine MONTHS] Encounters Start End Encounter Admission Attending Care Care Encounter Source Date/Time Date/Time Type Type Clinicians Facility Department ID 2019-05-31 Inpatient SLE SLE [id number] [facility] 01:10:00 [id number] 2020-11-13 2020-11-13 Outpatient ABEBA, [facility] [id number] [facility] 13:38:32 15:11:57 LALO Colle ge of Medicin e 2019-11-13 2019-11-13 Office Abeba [facility] [id number] [facility] 15:10:14 15:20:14 Visit Lalo AMBULATOR [id number] College [place] 0.2.7.2.686 of [id number] [facility] 300 e 2019-11-13 2019-11-13 Office Abeba [facility] [id number] 15:10:14 15:20:14 Visit Lalo AMBULATOR [id number] Keo Y 0.2.7.2.686 [id number] 2019-06-06 2019-06-06 Outpatient R RADIOLOGY [facility] [id number] Univers 15:06:52 23:59:00 ity of [facility] 2019-06-06 2019-06-06 [facility] Radiology [facility] [id number] [facility] 15:00:00 23:59:00 [id number] [id number] [address] 2019-06-06 2019-06-06 [facility] Radiology [facility] [id number] 15:00:00 23:59:00 Encounter Malone [id number] [place] [id number] [place] [address] [id number] 2019-04-16 2019-04-16 [facility] Abeba [facility] [id number] [facility] 10:11:20 10:21:20 Visit Lalo AMBULATOR 350.1.13.21 College Ke[facility] 0.2.7.2.686 of [id number] [facility] 300 e 2019-04-16 2019-04-16 [facility] Abeba [facility] [id number] 10:11:20 10:21:20 Visit Lalo AMBULATOR 350.1.13.21 Ke[place] 0.2.7.2.686 [id number] 300 Results Test Test Test Results Result Source Description Time Comments Comments CT HEAD WO 2019-05- No acute intracranial Un iversity of CONTRAST 29 abnormality. Mild global [facility] 20:55:15 volume lossCT HEAD WO Bra formerly [facility] CONTRAST HISTORY: Male 73 years ?Urgent [...] acute intracranial abnormality.Mild global volume loss SARS-COV2/RT-PCR ([facility]) 2019-06-01 09:49:00 Test Item Value Reference Range Interpretation Comme nts SARS-COV2/RT-PCR (test code = 5317757) Not Detected Not Detected, N egative SARS-COV-2 PERFORMING LAB (test code = CPL 2112578) Negative results do not preclude SARS-CoV-2 infection [...] TESTING PERFORMED AT [facility] [address] [place] [id number] DIGITAL ARCHIVIST: CALEB DAVIS M.D. CLIA NUMBER [id number] [facility] [place]. [id number] expected result is Negative (Not Detected). The [...] section 263a, to perform high complexity tests.POCT-GLUCOSE [id number] 08:57:00 Test Item Value Reference Range Interpretation Comments POC-GLUCOSE METER 171 mg/dL 70-110 H : TESTED A T [facility] 6720 (BEAKER) (test code = [place], 1538) [address]: Aquatics Specialist/Techni reynold ID = [id number] for Dennys Grey BASIC METABOLIC [id number] 06:00:00 Test Item Value Reference Range Interpretation [...] S NOT APPLICABLE FOR DIALYSIS PATIEN TS. Aquatics Specialist ID - DBCBC W/PLT COUNT & AUTO [id number] 05:09:00 Test Item Value Reference Range Interpretation [...] 2801) CT BRAIN WITHOUT IV CONTRAST - [id number] 14:06:00FINAL REPORT CT, BRAIN, WITHOUT IV CONTRAST [...] Rosales Verified Date/Time: 05/31/2019 14:06:16 Reading Location: [address] Neuro Reading Room POCT-GLUCOSE [id number] 12:22:00 Test Item Value Reference Range Interpretation Comments POC-GLUCOSE METER 308 mg/dL 70-110 H : TESTED A T [facility] 6720 (BEAKER) (test code = [facility], 153) [address]: Aquatics Specialist/Techni reynold ID = [id number] for AMADA MARIE [id number] 07:11:00 Test Item Value Reference Range Interpretation Comments PHOSPHORUS (BEAKER) (test code = 3.0 mg/dL 2.3-4.7 604) Aquatics Specialist ID - NEELIMA [id number] 07:11:00 Test Item Value Reference Range Interpretation Comments MAGNESIUM (BEAKER) (test code = 1.9 mg/dL 1.6-2.6 627) Aquatics Specialist ID - NEELIMA MPOCT-GLUCOSE [id number] 07:04:00 Test Item Value Reference Range Interpretation Comments POC-GLUCOSE METER 186 mg/dL 70-110 H : TESTED A T [facility] 6720 (BEAKER) (test code = [facility], 153) 626[address]: Aquatics Specialist/Techni reynold ID = [id number] for TRI QUACH PROTHROMBIN [id number] 07:02:00 Test Item Value Reference Range Interpretation [...] INR is2.5-3.5 for patients wiht mechanical heart valves.[id number] 07:02:00 Test Item Value Reference Range Interpretation Comments PARTIAL THROMBOPLASTIN TIME 27.6 seconds 22.5-36.0 (BEAKER) (test code = 760) TROPONIN [id number] 05:28:00 Test Item Value Reference Range Interpretation [...] failure, acidosis, acute neurological disease, and persistent tachyarrhythmia.Aquatics Specialist ID - NEELIMA [id number] 05:21:00 Test Item Value Reference Range Interpretation Comments PHOSPHORUS (BEAKER) (test code = 3.2 mg/dL 2.3-4.7 604) Aquatics Specialist ID - NEELIMA [id number] 05:21:00 Test Item Value Reference Range Interpretation Comments MAGNESIUM (BEAKER) (test code = 2.1 mg/dL 1.6-2.6 627) Aquatics Specialist ID - NEELIMA MBASIC METABOLIC [id number] 05:21:00 Test Item Value Reference Range Interpretation [...] S NOT APPLICABLE FOR DIALYSIS PATIEN TS. Aquatics Specialist ID - NEELIMA EPATIC FUNCTION [id number] 05:21:00 Test Item Value Reference Range Interpretation [...] (test code = 33 U/L 6-55 347) Aquatics Specialist ID - NEELIMA [id number] 05:10:00 Test Item Value Reference Range Interpretation Comments PARTIAL THROMBOPLASTIN TIME 27.8 seconds 22.5-36.0 (BEAKER) (test code = 760) PROTHROMBIN [id number] 05:09:00 Test Item Value Reference Range Interpretation [...] mechanical heart valves.CBC W/PLT COUNT & AUTO [id number] 04:47:00 Test Item Value Reference Range Interpretation [...] = 2801) RAD, CHEST, 1 VIEW, NON [id number] 03:50:00Reason for exam:->cough every morningShould this be [...] Unremarkable mediastinal contoursAdditional findings: None. Signed: [facility] Verified Date/Time: 05/31/2019 03:50:27 POCT-GLUCOSE [id number] 12:19:00 Test Item Value Reference Range Interpretation Comments POC-GLUCOSE METER 110 mg/dL 70-110 TESTED AT [facility] 7200 ([facility]) (test code [place] B = 1538) [facility] 7703 0 POCT-GLUCOSE [id number] 10:32:00 Test Item Value Reference Range Interpretation Comments POC-GLUCOSE METER 125 mg/dL 70-110 H TESTED AT [facility] 7[facility] ([facility]) (test code [place] B = 1538) [facility] 7703 0
[2021-07-21] MEDS ORDERED: MORPHINE 2 MG/ML SYR ONE (16:28)
[2021-07-21] MEDS ORDERED: ONDANSETRON 4 MG/2 ML VIAL ONE ×2 (16:28→19:37)
[2021-07-21 16:45] LABS: Protime INR 1.13
[2021-07-21 16:51] LABS: Absolute Lymphocytes (CBC) 0.6 K/uL (0.7-4.9); Hematocrit 45.3 % (39.6-49.0); Lymphocytes % 2.7 % (15.3-44.8); MCV 90.5 fL (80-100); MPV 9.6 fL (7.6-11.3)
[2021-07-21 17:03] LABS: Potassium 4.5 mmol/L (3.5-5.1)
[2021-07-21] MEDS ORDERED: INSULIN -REGULAR HUMAN 50 UNIT/0.5 ML ML ONE (17:48)
[2021-07-21] MEDS ORDERED: NA CHLORIDE 0.9% 1,000 ML ONE ×2 (17:48→18:53)
--- NOTE | 2021-07-21 17:49 | RAD REPORT ---
EXAM DESCRIPTION: CT - Head Brain Wo Cont - 07/21/2021 5:32 pm CLINICAL HISTORY: Head injury status post fall COMPARISON: 2020 TECHNIQUE: Computed axial tomography of the head was obtained. IV contrast was not requested. All CT scans are performed using dose optimization technique as appropriate and may include automated exposure control or mA/KV adjustment according to patient size. FINDINGS: An intracranial bleed is not seen . The ventricles are normal in caliber. No significant hypodense areas within the brain visualized No extra-axial fluid collection is noted. Fluid within the sinuses/ mastoids is not seen. IMPRESSION: No acute intracranial abnormality is seen. If patient's symptoms persist MRI of the bra in would be recommended.
--- NOTE | 2021-07-21 18:02 | RAD REPORT ---
EXAM DESCRIPTION: CT - Chest Abdomen Pelvis W Cont - 07/21/2021 5:32 pm CLINICAL HISTORY: Chest and abdominal pain status post fall COMPARISON: CT chest 2018 TECHNIQUE: Computed axial tomography of the chest, abdomen and pelvis was obtained. 100 cc Isovue-30 0 was administered intravenously. Oral contrast was not requested. This limits evaluation of bowel. All CT scans are performed using dose optimization technique as appropriate and may include automated exposure control or mA/KV adjustment according to patient size. FINDINGS: A pleural effusion is not present. A pulmonary contusion is not seen. 5 centimeter right upper lobe opacity mildly enlarged. 2 centimete r adjacent opacity A mediastinal hematoma is not present. The liver, spleen, pancreas, adrenals, kidneys bladder do not demonstrate a traumatic injury Gallbladder distention. The wall appears mildly thickened. Probable gallstones. Moderate stranding wi thin adjacent fat Bladder distention IMPRESSION: No traumatic injury involving the chest, abdomen nor pelvis is seen. Centimeter right upper lobe opacity. Additional 2 centimeter opacity lies adjacent to this. Different ial a slow growing neoplasm versus inflammation/low-grade infection. Gallbladder distention. Mild gallbladder wall thickening. Probable cholelithiasis. Stranding within t he adjacent fat the. These findings may indicate cholecystitis
--- NOTE | 2021-07-21 18:10 | EDPHYS ---
Physician Documentation [facility] Name: Gilberto Rangel Age: 75 yrs Sex: Male : 1945 Arrival Date: 07/21/2021 Time: 15:41 Bed 13 Private MD: ED Physician Leland Marin HPI: 07/21 16:11 This 75 yrs old Male presents to ER via EMS with complaints of chest rn pain/upper abd pain. 16:11 The patient or guardian reports chest pain that is located primarily in the anterior rn chest wall. Onset: The symptoms/episode began/occurred last night. The pain does not radiate. Associated signs and symptoms: Pertinent positives: abdominal pain, shortness of breath, Pertinent negatives: cough, diaphoresis, syncope, vomiting. The chest pain is described as sharp. Duration: The patient or guardian reports a single episode. Modifying factors: The symptoms are alleviated by nothing. the symptoms are aggravated by deep breath, movement, palpation of area. Severity of pain: At its worst the pain was moderate in the emergency department the pain is unchanged. The patient has not experienced similar symptoms in the past. The patient has not recently seen a physician. EMS reports that family called 911 for chest and abd pain, family reported fall last night, hit head and think hit chest. Patient does not recall falling. Reports pain to the right of sternum that is worse with palpation and breathing, also upper abd pain. Denies pain or injury to extremities. Denies back pain.. Historical: - Allergies: 16:10 Demerol; ww - Home Meds: 16:10 metformin 1,000 mg oral TG24 [Active]; gabapentin 400 mg oral cap 1 cap [Active]; ww glipizide 10 mg Oral tab 1 tab once daily [Active]; Lantus Sub-Q [Active]; Lisinopril Oral [Active]; amlodipine 10 mg tab 1 tab once daily [Active]; metoprolol tartrate 50 mg oral tab [Active]; - PMHx: 16:10 Diabetes - NIDDM; Hyperlipidemia; Hypertension; ww - Immunization history:: Adult Immunizations unknown. - Social history:: Smoking status: unknown. - Family history:: not pertinent. - Hospitalizations: : No recent hospitalization is reported. ROS: 16:11 Constitutional: Negative for fever, chills, and weight loss, Eyes: Negative for injury, rn pain, redness, and discharge, Neck: Negative for injury, pain, and swelling, Cardiovascular: + chest pain Respiratory: Negative for wheezing Abdomen/GI: Negative for nausea, vomiting, diarrhea, and constipation, + upper abd pain Back: Negative for injury and pain, MS/Extremity: Negative for injury and deformity, Skin: Negative for injury, rash, and discoloration, Neuro: Negative for headache, numbness, tingling, and seizure. Exam: 16:19 Constitutional: This is a well developed, well nourished patient who is awake, alert rn Head/Face: Normocephalic, atraumatic. Neck: Trachea midline, no masses palpated. Supple, full range of motion without nuchal rigidity, or vertebral point tenderness. No Meningismus. Chest/axilla: Normal chest wall appearance and motion. + mild tenderness to right of sternum, no crepitus. Cardiovascular: Tachycardic, regular. No pulse deficits. Respiratory: Mild tachypnea, no retractions, no wheezing noted. Abdomen/GI: Soft, + tender epigastrium, no rebound, + guarding Skin: Warm, dry MS/ Extremity: Pulses equal, no cyanosis. Neuro: Awake and alert, GCS 15 Vital Signs: 16:09 BP 133 / 72; Pulse 114; Resp 18; Temp 97.1; Pulse Ox 100% on 2 lpm NC; Weight 74.84 kg; ww Height 5 ft. 7 in. (170.18 cm); 17:30 BP 140 / 82; Pulse 108; Resp 22; Pulse Ox 98% on 2 lpm NC; ww 18:00 BP 161 / 88; Pulse 103; Resp 18; Pulse Ox 98% 2 lpm ; ww 19:26 BP 148 / 89; Pulse 101; Resp 19; Pulse Ox 97% on 2 lpm NC; lg3 22:05 BP 138 / 82; Pulse 97; Resp 18 S; Pulse Ox 96% on 2 lpm NC; lg3 16:09 Body Mass Index 25.84 (74.84 kg, 170.18 cm) MDM: 15:41 Patient medically screened. rn 18:06 Differential diagnosis: Blunt Chest Trauma Chest Wall Contusion. Data reviewed: vital rn signs, nurses notes, lab test result(s), radiologic studies, CT scan, and as a result, I will admit patient. 18:07 Counseling: I had a detailed discussion with the patient and/or guardian regarding: the rn historical points, exam findings, and any diagnostic results supporting the discharge/admit diagnosis, lab results, radiology results, the need for further work-up and treatment in the hospital. ED course: Pt without acute traumatic findings, but imaging does show possible pneumonia and possible cholecystitis. Lactate and blood cultures sent when images seen, seems fall/trauma coincidental. Abx ordered. Will admit to hospitalist service with surgical consult. . 18:26 ED course: Pt admitted to hospitalist, pt with now elevated lactate, meets criteria for rn severe sepsis. Source: A. pneumonia/cholecystitis, B. (SIRS) WBC>12K. HR > 90. C. Lactate > 2. Blood cultures and abx ordered. Pt improved and HR decreasing, vitals overall improving. Normal mental status.. 18:31 ED course: . rn 18:39 ED course: Consulted with Dr. Patino, will see patient, will admit to hospitalist for rn medical optimization then possible surgery if indicated.. 18:57 ED course: Sepsis reevaluation complete. rn 14 15:48 Order name: CBC with Diff; Complete Time: 18:19 07/21 15:48 Order name: Basic Metabolic Panel; Complete Time: 17:10 07/21 15:48 Order name: Protime (+inr); Complete Time: 17:10 07/21 15:48 Order name: Ptt, Activated; Complete Time: 17:10 07/21 17:43 Order name: Blood Culture Adult (2) rn 07/21 17:43 Order name: Lactate; Complete Time: 18:32 rn 07/21 15:48 Order name: CT Head Brain wo Cont; Complete Time: 18:03 07/21 15:48 Order name: CT Chest, Abdomen, Pelvis - W/Contrast; Complete Time: 18:03 07/21 17:44 Order name: SARS-COV-2 RT PCR (Document "Date of Onset" if Symptomatic); Complete Time: rn 19:25 07/21 17:46 Order name: LFT's; Complete Time: 18:30 bd 07/21 17:46 Order name: Lipase; Complete Time: 18:30 bd 07/21 18:16 Order name: Manual Differential; Complete Time: 18:19 EDMS 07/21 18:41 Order name: Lactate: Send this repeat when fluid bolus complete rn 07/21 22:45 Order name: Uric Acid EDOH 07/21 15:48 Order name: IV Start; Complete Time: 16:33 rn 07/21 18:07 Order name: US Abdomen Limited; Complete Time: 18:57 rn Administered Medications: 16:25 Drug: Zofran (Ondansetron) 4 mg Route: IVP; Site: right antecubital; ww 19:27 Follow up: Response: No adverse reaction lg3 16:33 Drug: morphine 2 mg Route: IVP; Infused Over: 4 mins; Site: right antecubital; ww 19:28 Follow up: Response: No adverse reaction lg3 17:44 Drug: NS 0.9% 1000 ml Route: IV; Rate: 1000 ml; Site: right antecubital; ww 19:27 Follow up: IV Status: Completed infusion; IV Intake: 1000ml lg3 17:45 Drug: Insulin Regular Human 10 units {Co-Signature: ss (Chiqui Jarrett RN).} Route: ww Sub-Q; Site: right lower abdomen; 19:27 Follow up: Response: No adverse reaction lg3 18:19 Drug: Zosyn (piperacillin-tazobactam) 3.375 grams Route: IVPB; Infused Over: 60 mins; ww Site: right antecubital; 19:22 Follow up: Response: No adverse reaction; IV Status: Completed infusion; IV Intake: lg3 100ml 18:35 CANCELLED (Duplicate Order): NS 0.9% 1000 ml IV at 1000 ml once rn 18:51 Drug: NS 0.9% (30 ml/kg) 30 ml/kg Route: IV; Rate: bolus; Site: right antecubital; ww 21:41 Follow up: Response: No adverse reaction; IV Status: Completed infusion lg3 19:37 Drug: Zofran (Ondansetron) 4 mg Route: IVP; Site: right antecubital; lg3 19:38 Follow up: Response: No adverse reaction lg3 19:38 Drug: Dilaudid (HYDROmorphone) 1 mg Route: IVP; Site: right antecubital; lg3 19:38 Follow up: Response: No adverse reaction lg3 Disposition Summary: 07/21/21 18:09 Hospitalization Ordered Hospitalization Status: Inpatient Admission rn Provider: Tomasz Lopez rn Location: Telemetry/MedSurg (Inpatient) rn Condition: Stable rn Problem: new rn Symptoms: have improved rn Bed/Room Type: Standard rn Room Assignment: 229(07/21/21 21:13) cg Diagnosis - Pneumonia, unspecified organism rn - Hypoxemia rn - Cholecystitis, unspecified rn - Severe sepsis without septic shock rn Forms: - Medication Reconciliation Form rn - SBAR form rn Signatures: Dispatcher [employer] EDMS Leland Marin MD MD rn Garcia, Cindy, RN PATRICIA cg Carole Christensen, RN RN lg3 Eve Zamora, RN Jazmine Hankins PA PA sb3 Chiqui Jarrett RN ss Corrections: (The following items were deleted from the chart) 16:22 16:11 Constitutional: Negative for fever, chills, and weight loss, Eyes: Negative for rn injury, pain, redness, and discharge, Neck: Negative for injury, pain, and swelling, Cardiovascular: + chest pain Respiratory: Negative for wheezing Abdomen/GI: Negative for nausea, vomiting, diarrhea, and constipation, Back: Negative for injury and pain, MS/Extremity: Negative for injury and deformity, Skin: Negative for injury, rash, and discoloration, Neuro: Negative for headache, numbness, tingling, and seizure, rn 18:06 16:19 Constitutional: This is a well developed, well nourished patient who is awake, rn alert Head/Face: Normocephalic, atraumatic. Neck: Trachea midline, no masses palpated. Supple, full range of motion without nuchal rigidity, or vertebral point tenderness. No Meningismus. Chest/axilla: Normal chest wall appearance and motion. + mild tenderness to right of sternum, no crepitus. Cardiovascular: Tachycardic, regular. No pulse deficits. Respiratory: Mild tachypnea, no retractions, no wheezing noted. Abdomen/GI: Soft, non-tender Skin: Warm, dry MS/ Extremity: Pulses equal, no cyanosis. Neuro: Awake and alert, GCS 15 rn 18:17 16:11 EMS reports that family called 911 for chest and abd pain, family reported fall rn last night, hit head and think hit chest. Patient does not recall falling. Reports pain to the right of sternum that is worse with palpation and breathing. Denies pain or injury to extremities. Denies back pain.. rn 18:18 16:11 Constitutional: Negative for fever, chills, and weight loss, Eyes: Negative for rn injury, pain, redness, and discharge, Neck: Negative for injury, pain, and swelling, Cardiovascular: + chest pain Respiratory: Negative for wheezing Abdomen/GI: Negative for nausea, vomiting, diarrhea, and constipation, Back: Negative for injury and pain, MS/Extremity: Negative for injury and deformity, Skin: Negative for injury, rash, and discoloration, Neuro: Negative for headache, numbness, tingling, and seizure, rn 18:34 18:26 ED course: Pt admitted to hospitalist, they will f/u lactate as if elevated would rn qualify patient for severe sepsis with source being A. pneumonia/cholecystitis, B. (SIRS) WBC>12K. HR > 90. Blood cultures and abx ordered. Pt improved and HR decreasing, vitals overall improving. Normal mental status. . rn 18:35 18:30 NS 0.9% 1000 ml IV at 1000 ml once ordered. rn rn 18:36 18:09 Sepsis, unspecified organism rn rn 18:58 18:26 ED course: Pt admitted to hospitalist, pt with now elevated lactate, meets rn criteria for severe sepsis. Source: A. pneumonia/cholecystitis, B. (SIRS) WBC>12K. HR > 90. C. Lactate > 2. Blood cultures and abx ordered. Pt improved and HR decreasing, vitals overall improving. Normal mental status. Sepsis reevaluation complete.. rn 21:13 18:09 rn cg
--- NOTE | 2021-07-21 18:10 | ER ---
Nurse's Notes [facility] Name: Gilberto Rangel Age: 75 yrs Sex: Male : 1945 Arrival Date: 07/21/2021 Time: 15:41 Bed 13 Private MD: Diagnosis: Pneumonia, unspecified organism;Hypoxemia;Cholecystitis, unspecified;Severe sepsis without septic shock Presentation: 07/21 16:09 Chief complaint: EMS states: Fell last night and today around 1400. Complaining of ww right rib pain and right face pain. Family states he has had an increase in weakness. Coronavirus screen: Client denies travel out of the [place] in the last 14 days. Ebola Screen: Patient denies travel to an Ebola-affected area in the 21 days before illness onset. Initial Sepsis Screen: Does the patient meet any 2 criteria? No. Patient's initial sepsis screen is negative. Does the patient have a suspected source of infection? No. Patient's initial sepsis screen is negative. Risk Assessment: Do you want to hurt yourself or someone else? Patient reports no desire to harm self or others. Onset of symptoms was July 21, 2021. 16:09 Method Of Arrival: EMS: [facility] ww 16:09 Acuity: FILIBERTO 3 ww Triage Assessment: 16:10 General: Appears in no apparent distress. Behavior is cooperative. Pain: Complains of ww pain in anterior aspect of left upper chest, left lateral anterior chest, left lateral posterior chest and left breast. Neuro: Level of Consciousness is awake, alert, obeys commands, Oriented to. Cardiovascular: Capillary refill Patient's skin is warm and dry. Respiratory: Airway is patent Respiratory effort is even, unlabored, Respiratory pattern is regular, symmetrical. GI: No signs and/or symptoms were reported involving the gastrointestinal system. : No signs and/or symptoms were reported regarding the genitourinary system. Derm: Skin is intact. Historical: - Allergies: 16:10 Demerol; ww - Home Meds: 16:10 metformin 1,000 mg oral TG24 [Active]; gabapentin 400 mg oral cap 1 cap [Active]; ww glipizide 10 mg Oral tab 1 tab once daily [Active]; Lantus Sub-Q [Active]; Lisinopril Oral [Active]; amlodipine 10 mg tab 1 tab once daily [Active]; metoprolol tartrate 50 mg oral tab [Active]; - PMHx: 16:10 Diabetes - NIDDM; Hyperlipidemia; Hypertension; ww - Immunization history:: Adult Immunizations unknown. - Social history:: Smoking status: unknown. - Family history:: not pertinent. - Hospitalizations: : No recent hospitalization is reported. Screenin:15 Abuse screen: Denies threats or abuse. Nutritional screening: No deficits noted. ww Tuberculosis screening: No symptoms or risk factors identified. Fall Risk Fall in past 12 months (25 points). No secondary diagnosis (0 pts). No IV (0 pts). Ambulatory Aid- None/Bed Rest/Nurse Assist (0 pts). Gait- Weak (10 pts.). Mental Status- Oriented to own ability (0 pts). Total East Fall Scale indicates Low Risk Score (25-44 pts). Fall prevention measures have been instituted. Side Rails Up X 2 Placed close to Nursing Station 1:1 attendant Assigned to Pt. Frequent Obs/Assesments occuring Family Present and informed to notify staff if they need to leave bedside As available Patient and Family Educated on Fall Prevention Program and strategies. Assessment: 16:14 Reassessment: Patient appears in no apparent distress at this time. No changes from ww previously documented assessment. Patient and/or family updated on plan of care and expected duration. Pain level reassessed. Patient is alert, oriented x 3, equal unlabored respirations, skin warm/dry/pink. see triage assessment. Derm: redness to left lower nostril. 17:25 Reassessment: Patient appears in no apparent distress at this time. No changes from ww previously documented assessment. Patient and/or family updated on plan of care and expected duration. Pain level reassessed. Patient is alert, oriented x 3, equal unlabored respirations, skin warm/dry/pink. 18:20 Reassessment: Patient appears in no apparent distress at this time. No changes from ww previously documented assessment. Patient and/or family updated on plan of care and expected duration. Pain level reassessed. Patient is alert, oriented x 3, equal unlabored respirations, skin warm/dry/pink. 19:23 General: Appears in no apparent distress. comfortable, Behavior is calm, cooperative. lg3 Pain: Complains of pain in right upper quadrant and right lower quadrant. Neuro: No deficits noted. [place] Agitation-Sedation Scale (RASS): 0 - Alert and Calm Level of Consciousness is awake, alert, obeys commands, Oriented to person, place, time, situation. Cardiovascular: No deficits noted. Denies chest pain, Capillary refill < 3 seconds Clubbing of nail beds is absent JVD is absent Patient's skin is warm and dry. Respiratory: Airway is patent Trachea midline Respiratory effort is even, unlabored, Respiratory pattern is regular, symmetrical. GI: Abdomen is flat, non-distended, Abd is soft Abdomen is tender to palpation Reports lower abdominal pain, upper abdominal pain. : No deficits noted. No signs and/or symptoms were reported regarding the genitourinary system. EENT: No deficits noted. No signs and/or symptoms were reported regarding the EENT system. Derm: Skin is intact, is healthy with good turgor, Skin is dry, Skin temperature is warm. Musculoskeletal: No deficits noted. Circulation, motion, and sensation intact. Range of motion: intact in all extremities. 21:41 Reassessment: Patient appears in no apparent distress at this time. No changes from lg3 previously documented assessment. Patient and/or family updated on plan of care and expected duration. Pain level reassessed. Patient is alert, oriented x 3, equal unlabored respirations, skin warm/dry/pink. Vital Signs: 16:09 BP 133 / 72; Pulse 114; Resp 18; Temp 97.1; Pulse Ox 100% on 2 lpm NC; Weight 74.84 kg; ww Height 5 ft. 7 in. (170.18 cm); 17:30 BP 140 / 82; Pulse 108; Resp 22; Pulse Ox 98% on 2 lpm NC; ww 18:00 BP 161 / 88; Pulse 103; Resp 18; Pulse Ox 98% 2 lpm ; ww 19:26 BP 148 / 89; Pulse 101; Resp 19; Pulse Ox 97% on 2 lpm NC; lg3 22:05 BP 138 / 82; Pulse 97; Resp 18 S; Pulse Ox 96% on 2 lpm NC; lg3 16:09 Body Mass Index 25.84 (74.84 kg, 170.18 cm) ED Course: 15:41 Patient arrived in ED. rn 15:41 Leland Marin MD is Attending Physician. rn 16:09 Eve Zamora RN is Primary Nurse. ww 16:10 Triage completed. ww 16:14 Arm band placed on. ww 16:34 Inserted saline lock: 20 gauge in right antecubital area, using aseptic technique. ww Blood collected. 17:34 CT Head Brain wo Cont In Process Unspecified. EDMS 17:34 CT Chest, Abdomen, Pelvis - W/Contrast In Process Unspecified. EDMS 18:08 Tomasz Lopez MD is Hospitalizing Provider. rn 18:45 US Abdomen Limited In Process Unspecified. EDMS 19:23 Patient has correct armband on for positive identification. Placed in gown. Bed in low lg3 position. Call light in reach. Side rails up X2. Client placed on continuous cardiac and pulse oximetry monitoring. NIBP monitoring applied. manager monitoring on. Door closed. Noise minimized. Warm blanket given. Family accompanied patient. 21:40 No provider procedures requiring assistance completed. Patient admitted, IV remains in lg3 place. intact, No redness/swelling at site. Administered Medications: 16:25 Drug: Zofran (Ondansetron) 4 mg Route: IVP; Site: right antecubital; ww 19:27 Follow up: Response: No adverse reaction lg3 16:33 Drug: morphine 2 mg Route: IVP; Infused Over: 4 mins; Site: right antecubital; ww 19:28 Follow up: Response: No adverse reaction lg3 17:44 Drug: NS 0.9% 1000 ml Route: IV; Rate: 1000 ml; Site: right antecubital; ww 19:27 Follow up: IV Status: Completed infusion; IV Intake: 1000ml lg3 17:45 Drug: Insulin Regular Human 10 units {Co-Signature: ss (Chiqui Jarrett RN).} Route: ww Sub-Q; Site: right lower abdomen; 19:27 Follow up: Response: No adverse reaction lg3 18:19 Drug: Zosyn (piperacillin-tazobactam) 3.375 grams Route: IVPB; Infused Over: 60 mins; ww Site: right antecubital; 19:22 Follow up: Response: No adverse reaction; IV Status: Completed infusion; IV Intake: lg3 100ml 18:35 CANCELLED (Duplicate Order): NS 0.9% 1000 ml IV at 1000 ml once rn 18:51 Drug: NS 0.9% (30 ml/kg) 30 ml/kg Route: IV; Rate: bolus; Site: right antecubital; ww 21:41 Follow up: Response: No adverse reaction; IV Status: Completed infusion lg3 19:37 Drug: Zofran (Ondansetron) 4 mg Route: IVP; Site: right antecubital; lg3 19:38 Follow up: Response: No adverse reaction lg3 19:38 Drug: Dilaudid (HYDROmorphone) 1 mg Route: IVP; Site: right antecubital; lg3 19:38 Follow up: Response: No adverse reaction lg3 Medication: 19:23 VIS not applicable for this client. lg3 Intake: 19:22 IV: 100ml; Total: 100ml. lg3 19:27 IV: 1000ml; Total: 1100ml. lg3 Outcome: 18:09 Decision to Hospitalize by Provider. rn 21:40 Admitted to Med/surg accompanied by tech, family with patient, via wheelchair, room lg3 229, with oxygen, Report called to Cecilia 21:40 Condition: stable 21:40 Instructed on the need for admit, Demonstrated understanding of instructions. 22:57 Patient left the ED. cp Signatures: Dispatcher [employer] EDMS Leland Marin MD MD rn Page, Corey, PA PA cp Carole Christensen RN RN [facility] Eve Zamora RN RN Chiqui Jarrett RN
[2021-07-21] MEDS ORDERED: NA CHLORIDE 0.9% 100 ML ONE (18:12)
[2021-07-21] MEDS ORDERED: PIPERACIL/TAZO 3.375 GM VIAL IV ONE (18:12)
[2021-07-21 18:15] LABS: Blood Morphology Comment NOT SEEN (NOT SEEN); Platelet Estimate ADEQ
[2021-07-21 18:29] LABS: Albumin 2.6 g/dL (3.4-5.0); Bilirubin Direct 0.3 mg/dL (0-0.2); Bilirubin Total 0.6 mg/dL (0.2-1.0); Protein, Total 7.2 g/dL (6.4-8.2)
[2021-07-21] MEDS ORDERED: NA CHLORIDE 0.9% 250 ML ONE (18:53)
--- NOTE | 2021-07-21 18:54 | RAD REPORT ---
EXAM DESCRIPTION: US - Abdomen Exam Limited - 07/21/2021 6:44 pm CLINICAL HISTORY: Abdominal pain. COMPARISON: None. FINDINGS: Mild gallbladder wall thickening. Small to moderate amount of gallbladder sludge. Several additional tiny echogenic structures within t he gallbladder. The biliary tree is normal caliber. IMPRESSION: Small to moderate gallbladder sludge Tiny echogenic densities within the gallbladder may represent stones which did not shadow secondary t o combination of technical factors and their small size or echogenic sludge. Mild gallbladder wall thickening may indicate acute cholecystitis.
[2021-07-21] MEDS ORDERED: HYDROMORPHONE HCL 1 MG/ML INJ ONE (19:37)
--- NOTE | 2021-07-21 19:52 | P.HP ---
Certification for Inpatient Patient admitted to: Inpatient With expected LOS: >2 Midnights Patient will require the following post-hospital care: None Practitioner: I am a practitioner with admitting privileges, knowledge of patient current condition, hospital course, and medical plan of care. Services: Services provided to patient in accordance with Admission requirements found in Title 42 Section 412.3 of the Code of Federal Regulations Patient History Date of Service: 07/21/21 Primary Care Provider: Camelia Reason for admission: Severe Sepsis, Cholecystitis History of Present Illness: Patient is a 75-year-old male, German-speaking, with PMH of HTN and IDDM who presented to the ED with his daughter who reports that he has been very weak, had decreased PO intake, and fell today and hit his head. He is complaining of right upper quadrant pain. Head CT negative. Work-up revealed WBC 23, sodium 125, glucose 406, lactic acid 2.1, creatinine 1.45. CT abdomen pelvis showed cholelithiasis with possible cholecystitis. Abdominal ultrasound confirmed acute cholecystitis. General surgery was notified and wishes for patient to be managed medically for now but will see patient. He was given 30ml/kg fluids in the ED along with zosyn and insulin. He was also found to be hypoxemic and requiring supplemental oxygen. Patient is admitted for further evaluation and treatment. Allergies No Known Drug Allergies Allergy (Verified 11/15/14 22:04) Unknown Home Medications: Gabapentin [Neurontin*] 300 mg PO BEDTIME 11/15/14 Lisinopril [Zestril] 40 mg PO BID 11/15/14 Metformin HCl [Glucophage] 1,000 mg PO BID 11/15/14 Simvastatin [Zocor*] 2 mg PO DAILY 11/15/14 Acetaminophen [Tylenol] 325 mg PO Q4H PRN #30 tablet 11/16/14 Alcohol Antiseptic Pads [Alcohol Swabs] 1 each TP TID #100 med..pad 02/07/21 Ascorbic Acid [Vitamin C] 1,000 mg PO TID #180 tablet 02/07/21 Benzonatate [Tessalon Perle*] 100 mg PO TID PRN #30 cap 02/07/21 Cholecalciferol (Vitamin D3) [Vitamin D3] 4,000 unit PO DAILY #60 capsule 02/07/21 Zinc Sulfate [Zinc Sulfate*] 220 mg PO DAILY #30 cap 02/07/21 Blood Sugar Diagnostic [Glucose Test Strip] 1 each TID #100 strip 02/09/21 Blood-Glucose Meter [Accu-Chek Guide Monitor System] 1 each TID #1 each 02/09/21 Insulin Glargine,Hum.rec.anlog [Lantus Solostar] 10 unit SQ DAILY #2 insuln.pen 02/09/21 Lancets 1 each TID #100 each 02/09/21 - Past Medical/Surgical History Diabetic: Yes -: HTN -: Diabetes mellitus type 2, Insulin-Dependent -: Hyperlipidemia -: Diabetic neuropathy -: Artificial right eye -: subarachnoid hemorrhage -: Lung Nodule -: Appendectomy -: Savage glaucoma surgery -: Artificial right eye Psychosocial/ Personal History: The patient is . He has 2 children. He is currently disabled. - Family History Father -: Lung disease (Asthma) Mother -: Stroke, Other (see notes) Notes: Thyroid problems Brother -: Hypertension, Stroke Sister -: Cancer Notes: Brain Cancer - Social History Smoking Status: Never smoker Alcohol use: Yes CD- Drugs: No Caffeine use: No Place of Residence: Home Review of Systems General: Weakness, As per HPI Gastrointestinal: Nausea, Vomiting, Abdominal Pain Physical Examination - Physical Exam General: Alert, In no apparent distress HEENT: Atraumatic, PERRLA, EOMI, Sclerae nonicteric Neck: Supple, 2+ carotid pulse no bruit, No LAD, Without JVD or thyroid abnormality Respiratory: Clear to auscultation bilaterally, Normal air movement Cardiovascular: No edema, Normal S1 S2, Other (tachycardic) Gastrointestinal: No guarding, Distended, Tenderness Musculoskeletal: No tenderness Integumentary: No rashes Neurological: Normal speech, Normal strength at 5/5 x4 extr, Normal tone, Normal affect - Studies Laboratory Data (last 24 hrs) 07/21/21 17:50: Total Bilirubin 0.6, AST 16, ALT 17, Alkaline Phosphatase 85, Lipase 28 L 07/21/21 16:31: PT 12.5, INR 1.13, APTT 29.3 07/21/21 16:31: Sodium 125 L, Potassium 4.5, BUN 36 H, Creatinine 1.45 H, Glucose 406 H* 07/21/21 16:31: WBC 23.0 H*, Hgb 15.1, Hct 45.3, Plt Count 173 Assessment and Plan - Problems (Diagnosis) (1) Acute cholecystitis Current Visit: Yes Status: Acute (2) Severe sepsis Current Visit: Yes Status: Acute (3) Hypoxemia Current Visit: Yes Status: Acute (4) Hyponatremia Current Visit: Yes Status: Acute (5) TRELL (acute kidney injury) Current Visit: Yes Status: Acute (6) Type 2 diabetes mellitus with hyperglycemia Current Visit: No Status: Acute Qualifiers: Diabetes mellitus intermission coordinator insulin use: with intermission coordinator use Qualified Code(s): E11.65 - Type 2 diabetes mellitus with hyperglycemia; Z79.4 - director long term care (current) use of insulin (7) Hyperlipidemia Current Visit: No Status: Chronic Qualifiers: Hyperlipidemia type: unspecified Qualified Code(s): E78.5 - Hyperlipidemia, unspecified (8) Hypertension Current Visit: No Status: Chronic Qualifiers: Hypertension type: primary hypertension Qualified Code(s): I10 - Essential (primary) hypertension - Plan Severe Sepsis: continue IVF at 100 cc/hr. Initial lactic acid 2.1. Repeat pending. WBC 23, will recheck in morning. Blood cultures drawn. Zosyn. Cholecystitis: Continue zosyn and IVF. General surgery is not planning to operate at this point but will see patient. Clear liquid diet, advance as tolerated unless further recommendation per general surgery. IDDM: Initially hyperglycemic at 406. Moderate sliding scale insulin with ACHS accu checks. A1C ordered. Hypertension & Hyperlipidemia: Stable at this time. Continue home medications. Hypoxemia: Does not have oxygen at home but is requiring supplementation here. Likely secondary to sepsis. Will monitor and wean as tolerated. TRELL: Cr appears above baseline. Likely secondary to sepsis. Will monitor Cr and hold nephrotoxic drugs. Hyponatremia: hypovolemic secondary to decreased PO intake. Cont IVF. Check serum osmolality, urine osmolality, urine sodium. Lovenox for VTE ppx Full Code Discharge Plan: Home Plan to discharge in: Greater than 2 days - Advance Directives Does patient have a Living Will: No Does patient have a Durable POA for Healthcare: No - Code Status/Comfort Care Code Status Assessed: Yes (Full) Critical Care: No Time Spent Managing Pts Care (In Minutes): 70
[2021-07-21] MEDS ORDERED: ONDANSETRON 4 MG/2 ML VIAL IV PRN (21:45)
[2021-07-21] MEDS ORDERED: ACETAMINOPHEN 500 MG TAB PO PRN (21:45)
[2021-07-21 23:01] VITALS: BMI 23.0
[2021-07-21] MEDS: INSULIN -REGULAR HUMAN 50 UNIT/0.5 ML ML SQ SCH (23:27)
[2021-07-21] MEDS: NA CHLORIDE 0.9% 1,000 ML IV SCH (23:27)
[2021-07-21] MEDS: HYDROMORPHONE HCL 1 MG/ML INJ IV PRN (23:44)
--- NOTE | 2021-07-22 00:31 | P.INFCA ---
Sepsis Focused Assessment - Focused Assessment Complete? Sepsis Focused Assessment Completed?: Yes - Sepsis Screen Result Severe Sepsis: Positive Septic Shock: Negative - Evaluation Current stage of sepsis: Severe sepsis - Vital Signs Reviewed: Yes Temperature: 97.3 F Heart rate: 113 Blood Pressure: 142/82 Respiratory Rate: 18 O2 Sat by Pulse Oximetry: 95 - Examination Date exam was performed: 07/22/21 Time exam was performed: 00:00 Heart: Tachycardia Lungs: Clear bilaterally Peripheral pulses: 3+ Normal Peripheral pulse location: Radial Skin examination: Pale
[2021-07-22] MEDS: PIPER TAZO 3.375 GM in NA CHLORIDE 0.9% 100 ML IV SCH ×3 (00:45→17:27)
[2021-07-22 04:17] LABS: Absolute Lymphocytes (CBC) 0.6 K/uL (0.7-4.9); Hematocrit 38.2 % (39.6-49.0); MCV 90.3 fL (80-100); MPV 9.6 fL (7.6-11.3); RBC Red Blood Cell Count 4.23 M/uL (4.33-5.43)
[2021-07-22 04:44] LABS: Magnesium 2.5 mg/dL (1.8-2.4); Phosphorus 2.4 mg/dL (2.5-4.9); Potassium 4.1 mmol/L (3.5-5.1); Thyroid Stimulating Hormone 0.563 uIU/mL (0.360-3.740)
[2021-07-22] MEDS: HYDROMORPHONE HCL 1 MG/ML INJ IV PRN ×4 (05:09→20:34)
[2021-07-22 06:41] LABS: UR SODIUM < 15 mmol/L (27-287)
[2021-07-22 06:52] LABS: Urine Appearance CLEAR (Clear); Urine Blood NEGATIVE (Negative); Urine Color YELLOW (Yellow); Urine Glucose 2+ (Negative); Urine Protein 2+ (Negative)
[2021-07-22] MEDS: POTASS/SODIUM PHOSPHATE 1 PKT POWD.PACK PO SCH ×3 (06:52→08:23)
[2021-07-22 07:00] LABS: Urine Bilirubin NEGATIVE (Negative)
[2021-07-22 07:05] LABS: Urine Amorphous Sediment 1+ /HPF (NONE SEEN); Urine Bacteria <20 /HPF (NONE SEEN); Urine RBC <5 /HPF (NONE SEEN)
[2021-07-22] MEDS: ENOXAPARIN 40 MG/0.4 ML SQ SCH (08:16)
[2021-07-22] MEDS: INSULIN -REGULAR HUMAN 50 UNIT/0.5 ML ML SQ SCH ×4 (08:16→20:38)
--- NOTE | 2021-07-22 12:59 | P.PN ---
Subjective Date of Service: 07/22/21 Subjective: No new changes, No C/O voiced Abdominal pain; notified of lung lesion. Outpatient work-up. Review of Systems 10-point ROS is otherwise unremarkable Physical Examination - Vital Signs Temperature: 97.4 F Blood Pressure: 154/85 Pulse: 105 Respirations: 16 Pulse Ox (%): 93 - Physical Exam General: Alert, In no apparent distress HEENT: Atraumatic, PERRLA, EOMI Neck: Supple, JVD not distended Respiratory: Clear to auscultation bilaterally, Normal air movement Cardiovascular: Regular rate/rhythm, Normal S1 S2 Gastrointestinal: Hypoactive, Soft and benign, Distended, Tenderness, Rebound Musculoskeletal: No tenderness Integumentary: No rashes Neurological: Normal speech, Normal tone, Normal affect Lymphatics: No axilla or inguinal lymphadenopathy - Studies Laboratory Data (last 24 hrs) 07/21/21 17:50: Total Bilirubin 0.6, AST 16, ALT 17, Alkaline Phosphatase 85, Lipase 28 L 07/21/21 16:31: PT 12.5, INR 1.13, APTT 29.3 07/21/21 16:31: Sodium 125 L, Potassium 4.5, BUN 36 H, Creatinine 1.45 H, Glucose 406 H* 07/21/21 16:31: WBC 23.0 H*, Hgb 15.1, Hct 45.3, Plt Count 173 Medications List Reviewed: Yes Assessment & Plan - Problems (Diagnosis) (1) Acute cholecystitis Current Visit: Yes Status: Acute (2) Diabetes mellitus Current Visit: No Status: Chronic Qualifiers: Diabetes mellitus type: type 2 Diabetes mellitus manager long term care insulin use: unspecified manager long term care insulin use status Diabetes mellitus complication status: with hyperglycemia Qualified Code(s): E11.65 - Type 2 diabetes mellitus with hyperglycemia (3) Hyperlipidemia Current Visit: No Status: Chronic Qualifiers: Hyperlipidemia type: unspecified Qualified Code(s): E78.5 - Hyperlipidemia, unspecified (4) Hypertension Current Visit: No Status: Chronic Qualifiers: Hypertension type: primary hypertension Qualified Code(s): I10 - Essential (primary) hypertension - Plan Plan: 1. IV antibiotics 2. IV fluids 3. Surgery consultation appreciated 4. Pulmonary consultation pending 5. Monitor LFTs 6. Outpatient lung mass work-up 7. GI and DVT prophylaxis Discharge Plan: Home Plan to discharge in: Greater than 2 days - Advance Directives Does patient have a Living Will: No Does patient have a Durable POA for Healthcare: No - Code Status/Comfort Care Code Status Assessed: Yes Code Status: Full Code Critical Care: No Time Spent Managing PTS Care (In Minutes): 45
[2021-07-22] MEDS: NA CHLORIDE 0.9% 1,000 ML IV SCH ×2 (13:39→17:45)
--- NOTE | 2021-07-22 14:56 | CON ---
Date of Consultation: 07/21/2021 Reason For Consultation: Abdominal pain. History Of Present Illness: The patient is a 75-year-old gentleman, presented to the emergency room with weakness after a fall. He had been weak for several days, had not been taking p.o. intake and f ell yesterday and hit his head. He was brought to the emergency room and a workup was done. There w ere multiple findings including a right upper lobe mass on the right lung as well as probable cholecy stitis and cholelithiasis. He exhibited sign and symptoms of severe sepsis and was treated according ly. After admission, I was consulted for further evaluation. This morning, the patient was awake, a lert, complaining of mild pain in the right upper quadrant and abdominal distention. He is [place]-s peaking and we had to use a overedge sewer for the review of systems. The patient has not had much appet ite, feels weak and dizzy when he tries to get up, and that is why he fell yesterday. The patient di d have a lung mass, which was evaluated in 2018. Biopsy was done by Dr. Puckett, which did show non inflammatory or an infectious source was the reason for the mass and there was no evidence of maligna ncy on the biopsy either. The mass is slightly enlarged since that time on the current CT. The dangelo ent had a CT of the head, chest, abdomen, and pelvis. He denies any sore throat, runny nose, cough, headaches, or dizziness. No chest pain. No fever or chills. Review of Systems: Otherwise unremarkable. Past Medical History: Significant for hypertension, diabetes type 2, hyperlipidemia, diabetic neurop athy, subarachnoid hemorrhage, and lung nodule as mentioned per HPI. Past Surgical History: Artificial right eye, bilateral glaucoma surgery, appendectomy. Allergies: NO ALLERGIES. Social History: The patient does not smoke. Drinks alcohol occasionally. Family History: Significant for Lyme disease in the father. Stroke and thyroid problems in the [facility] er. Brother with hypertension and stroke. Sister with brain cancer. Physical Examination: Vital Signs: Currently are significant for a slight tachycardia with pulse rate being 105, his blood pressure currently is 154/85, respiratory rate is 16, O2 saturation is 93 on nasal cannula, and he i s afebrile. General: He is awake, alert, and oriented x3. Head and Neck: Cranial nerves 2 through 12 are grossly within normal limits. No neck masses. No JV D. Throat clear. Neck is supple. There was no evidence of icterus. Chest: Clear. Heart: S1, S2. Abdomen: Soft, distended, hypoactive bowel sounds. Mcdowell sign in the right upper quadrant. Elsewh ere no evidence of peritonitis. Extremity: Adequately perfused and nontender. Neuro: Nonfocal. Laboratory Data: On admission; his sodium was 125 and his glucose was greater than 400. They are be ing corrected currently. Sodium is up to 131 and glucose is down to 215. His lactic acid was greate r than 2 and repeat was similar. His LFTs were normal. Albumin is low, however. His CT of the abdo men and pelvis, ultrasound of the abdomen and as well as head CT and chest CT were all reviewed. Ess ential findings are evidence of acute cholecystitis and cholelithiasis as well as mass in the right l [place], etiology favors a slow growing tumor versus infectious or inflammatory etiology. Assessment: A 75-year-old gentleman with multiple medical problems with severe sepsis secondary most likely to acute cholecystitis and cholelithiasis as well as an incidental finding of a lung mass. Recommendations: As the patient has had this lung mass biopsy before was not a malignancy, we will h ave Dr. Puckett re-evaluate it and may need treatment with additional antibiotics as etiology of thi s is unclear and may also need a repeat biopsy and cultures done on this mass. As far as his sepsis is concerned, the patient is being appropriately resuscitated with fluids and antibiotics and respond ing well. My plan is to continue the resuscitation today and tomorrow morning, we will proceed with a laparoscopic cholecystectomy possible open. The patient and daughter understand the risks, benefit s, and alternatives and agreed to procedure. Plan of care discussed with Dr. Lopez. CARTER/QUENTIN Voice ID: [id number] Report ID: [id number]
[2021-07-22] MEDS ORDERED: CHLORASEPTIC LOZENGES PO PRN (17:23)
[2021-07-23] MEDS: NA CHLORIDE 0.9% 1,000 ML IV SCH ×3 (00:39→21:08)
[2021-07-23] MEDS: PIPER TAZO 3.375 GM in NA CHLORIDE 0.9% 100 ML IV SCH ×3 (01:32→16:31)
[2021-07-23] MEDS: HYDROMORPHONE HCL 1 MG/ML INJ IV PRN (01:41)
[2021-07-23 06:32] LABS: Absolute Lymphocytes (CBC) 0.5 K/uL (0.7-4.9); Hematocrit 36.4 % (39.6-49.0); MCV 90.7 fL (80-100); MPV 9.2 fL (7.6-11.3); RBC Red Blood Cell Count 4.01 M/uL (4.33-5.43)
[2021-07-23 07:10] LABS: Bilirubin Total 0.9 mg/dL (0.2-1.0); Magnesium 2.2 mg/dL (1.8-2.4); Phosphorus 1.5 mg/dL (2.5-4.9); Potassium 3.9 mmol/L (3.5-5.1); Protein, Total 6.4 g/dL (6.4-8.2)
[2021-07-23] MEDS ORDERED: dexAMETHasone 10 MG/ML VIAL ONE (07:14)
[2021-07-23] MEDS ORDERED: BUPIVACAINE 0.25% PF 10 ML VIAL ONE (07:14)
--- NOTE | 2021-07-23 07:25 | P.PN ---
Date of Service: 07/23/21 Subjective Subjective: Still with pain but symptoms improving; Scheduled for lap elizabeth today Review of Systems 10-point ROS is otherwise unremarkable Physical Examination - Vital Signs Reviewed - Physical Exam General: Alert, In no apparent distress Respiratory: Clear to auscultation bilaterally, Normal air movement Cardiovascular: Regular rate/rhythm, Normal S1 S2 Gastrointestinal: Hypoactive, Soft and benign, Distended, Tenderness, Rebound Neurological: Normal speech, Normal tone, Normal affect Assessment & Plan - Problems (Diagnosis) (1) Acute cholecystitis Current Visit: Yes Status: Acute (2) Diabetes mellitus Current Visit: No Status: Chronic Qualifiers: Diabetes mellitus type: type 2 Diabetes mellitus [employer] insulin use: unspecified usp insulin use status Diabetes mellitus complication status: with hyperglycemia Qualified Code(s): E11.65 - Type 2 diabetes mellitus with hyperglycemia (3) Hyperlipidemia Current Visit: No Status: Chronic Qualifiers: Hyperlipidemia type: unspecified Qualified Code(s): E78.5 - Hyperlipidemia, unspecified (4) Hypertension Current Visit: No Status: Chronic Qualifiers: Hypertension type: primary hypertension Qualified Code(s): I10 - Essential (primary) hypertension - Plan Plan: 1. Continue with IV antibiotics 2. Continue with IV fluids 3. Surgery consultation appreciated; lap elizabeth today 4. Pulmonary consultation pending 5. Monitor LFTs 6. Outpatient lung mass work-up 7. GI and DVT prophylaxis Discharge Plan: Home Plan to discharge in: Greater than 2 days - Advance Directives Does patient have a Living Will: No Does patient have a Durable POA for Healthcare: No - Code Status/Comfort Care Code Status Assessed: Yes Code Status: Full Code Critical Care: No Time Spent Managing PTS Care (In Minutes): 45
[2021-07-23] MEDS ORDERED: propofoL 200 MG/20 ML VIAL IV ONE (07:29)
[2021-07-23] MEDS ORDERED: FENTANYL CITR 100 MCG/2 ML ONE (07:29)
[2021-07-23] MEDS ORDERED: NS 0.9% VIAL 10 ML ONE ×2 (07:29→09:19)
[2021-07-23] MEDS ORDERED: VECURONIUM 10 MG/VIAL IV ONE (07:29)
[2021-07-23] MEDS ORDERED: LIDOCAINE 2% MPF 5 ML VIAL ONE (07:29)
[2021-07-23] MEDS: INSULIN -REGULAR HUMAN 50 UNIT/0.5 ML ML SQ SCH ×4 (07:30→20:38)
--- NOTE | 2021-07-23 08:25 | P.CNS ---
Date of Consult: 07/23/21 Reason for Consult: Right upper lobe lung mass Primary Care Provider: Camelia Chief Complaint: Severe Sepsis, Cholecystitis History of Present Illness: Patient is 75 years of age Indonesian-speaking only the past history of metabolic syndrome mated with right upper quadrant pain was found to have cholecystitis currently in surgery and was also found to have a right upper lobe lung mass with some surrounding inflammatory changes/this was noted in 2018 Allergies No Known Drug Allergies Allergy (Verified 07/21/21 22:58) Unknown Home Medications: Amlodipine [Norvasc*] 10 mg PO DAILY 07/22/21 Gabapentin [Neurontin*] 400 mg pe PO BID 07/22/21 Glipizide [Glucotrol Xl] 10 mg PO DAILY 07/22/21 Insulin Glargine,Hum.rec.anlog [Lantus] 10 units SQ DAILY 07/22/21 Metformin HCl 1,000 mg PO BID 07/22/21 Metoprolol Tartrate [Lopressor*] 50 mg PO DAILY 07/22/21 Simvastatin 20 mg PO BEDTIME 07/22/21 - Past Medical/Surgical History Diabetic: Yes -: HTN -: Diabetes mellitus type 2, Insulin-Dependent -: Hyperlipidemia -: Diabetic neuropathy -: Artificial right eye -: subarachnoid hemorrhage -: Lung Nodule -: Appendectomy -: Savage glaucoma surgery -: 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 He has 2 children. He is currently disabled. - Family History Father Medical History: Lung disease Mother Medical History: Stroke, Other (see notes) Notes: Thyroid problems Brother Medical History: Hypertension, Stroke Sister Medical History: Cancer Notes: Brain Cancer - Social History Smoking Status: Unknown if ever smoked Alcohol use: No CD- Drugs: No Caffeine use: No Place of Residence: Home Review of Systems 10-point ROS is otherwise unremarkable General: Weakness Physical Examination Temp Pulse Resp BP Pulse Ox 98.0 F 100 H 19 134/71 96 07/23/21 04:00 07/23/21 04:00 07/23/21 04:00 07/23/21 04:00 07/23/21 04:00 General: Alert, Cooperative, Mild distress Respiratory: Clear to auscultation bilaterally Cardiovascular: No edema, Normal S1 S2 Gastrointestinal: Hypoactive - Problems (1) Abnormal CT scan, chest Current Visit: No Status: Acute Plan: Patient at this chronic right upper lobe opacity was present in 2018 mild increase in size apparently he was biopsied in 2018 at that time was negative for malignant cells and for AFB right now no biopsies indicated we will plan to follow-up in the clinic doubt if his cancer is severe to follow-up for the past 4 years years patient does not have a significant smoking history 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
[2021-07-23] MEDS ORDERED: NA CHLORIDE 0.9% 1,000 ML ONE (08:38)
[2021-07-23] MEDS ORDERED: MORPHINE 10 MG/ML VIAL ONE (09:19)
[2021-07-23] MEDS ORDERED: ONDANSETRON 4 MG/2 ML VIAL ONE (09:48)
[2021-07-23] MEDS ORDERED: ONDANSETRON 4 MG/2 ML VIAL IV PRN (11:04)
--- NOTE | 2021-07-23 16:30 | P.OP ---
Date of Service: 07/23/21 Preop diagnosis: Acute cholecystitis and cholelithiasis Postop diagnosis: Acute ischemic, gangrenous cholecystitis and cholelithiasis Procedure performed: Diagnostic laparoscopy and open cholecystectomy Surgeon: Chuy Patino MD Chemist Inorganic: Maurilio HENDERSON Estimated blood loss: Minimal Specimen: Gallbladder Findings: As above Anesthesia: General Complications: None Drains: #10 flat KAIA Fluids and blood products: Nonapplicable Disposition: Recovery room Operative note: Patient brought to the OR and placed in supine position general. General anesthesia begun. Patient prepped and draped in the usual sterile fashion. Marcaine 0.5% infiltrated locally. 15 blade used to make a 1 cm supraumbilical midline incision. Subcutaneous tissue divided and fascia identified and divided. #1 Vicryl stay suture placed. Peritoneal cavity entered with sharp and blunt dissection. 12 mm trocar placed into the peritoneal cavity under direct vision. Pneumoperitoneum established and a 5 mm trocar placed into the epigastric region just right of midline. Laparoscopy revealed omental adhesions to the liver completely covering the gallbladder. Is very difficult to lyse these adhesions without risking rupture of the gallbladder. The fundus of the gallbladder had ischemic and gangrenous changes. Therefore, a clinical decision was made to convert this to an open procedure. All trochars removed. 10 blade used to make a right subcostal incision. Subcutaneous tissue divided and bleeding controlled with cautery. Fascia id entified and divided. Rectus muscle divided. Posterior sheath divided. Peritoneal cavity entered. Liver mobilized inferiorly to expose the liver bed into the wound. Omental adhesions taken down with sharp and blunt dissection. Gallbladder identified. Ischemic and gangrenous changes noted on the fundus and body of the gallbladder. As the gallbladder was distended, it was aspirated of bile. Then, after exposing the gallbladder, retrograde dissection was performed. Gallbladder was from the liver bed with sharp and blunt dissection. Bleeding on the liver bed was controlled with cautery. Cystic duct cystic artery were clearly identified. Both were close to each other and clamped together and tied off with a 2-0 silk tie. Gallbladder was removed and sent to pathology as specimen. The gallbladder fossa was thoroughly irrigated. There was oozing noted from the inflamed tissue. Avitene and Surgicel were applied in the standard fashion. No further bleeding or oozing was noted. Misael-Olivares drain #10 flat was placed in the gallbladder fossa and secured with 3-0 nylon. All counts were correct at this point. Posterior sheath was closed with 0 chromic suture. Wound irrigated and bleeding controlled with cautery. Fascia was closed with #2 nylon. Subcutaneous was irrigated and bleeding controlled with cautery. Stay sutures at the umbilicus were tied to each other to reapproximate the fascial defect. Subcutaneous wounds were irrigated and bleeding controlled with cautery. Staple used to close skin. Sterile dressing applied and patient taken to recovery room in good general condition. CC:
[2021-07-23] MEDS ORDERED: METOPROLOL TAR 25 MG TAB PO ONE (23:39)
[2021-07-24] MEDS: HYDROMORPHONE HCL 1 MG/ML INJ IV PRN ×4 (00:10→17:55)
[2021-07-24] MEDS: PIPER TAZO 3.375 GM in NA CHLORIDE 0.9% 100 ML IV SCH ×3 (00:11→17:17)
[2021-07-24] MEDS: METOPROLOL TAR 50 MG TAB PO SCH ×2 (05:49→17:55)
[2021-07-24 06:03] LABS: Absolute Lymphocytes (CBC) 0.6 K/uL (0.7-4.9); Hematocrit 34.1 % (39.6-49.0); Lymphocytes % 3.5 % (15.3-44.8); MCV 91.3 fL (80-100); MPV 8.9 fL (7.6-11.3); RBC Red Blood Cell Count 3.74 M/uL (4.33-5.43)
[2021-07-24 06:21] LABS: Phosphorus 2.3 mg/dL (2.5-4.9); Potassium 4.1 mmol/L (3.5-5.1)
[2021-07-24] MEDS: POTASS/SODIUM PHOSPHATE 1 PKT POWD.PACK PO SCH ×3 (08:27→11:29)
[2021-07-24] MEDS: ENOXAPARIN 40 MG/0.4 ML SQ SCH (08:27)
[2021-07-24] MEDS: NA CHLORIDE 0.9% 1,000 ML IV SCH ×2 (08:28→18:40)
[2021-07-24] MEDS: INSULIN -REGULAR HUMAN 50 UNIT/0.5 ML ML SQ SCH ×4 (08:28→20:38)
--- NOTE | 2021-07-24 08:45 | P.PN ---
Date of Service: 07/24/21 Subjective: Patient is awake and alert. Patient denies significant abdominal pain. Patient has minimal incisional pain. Patient denies nausea or vomiting. Patient has not ambulated since surgery because he is little confused at this time. Objective: Vital signs are stable he is afebrile. White count is decreasing. KAIA drain has serosanguineous fluid33 cc in the last shift. Abdomen: Soft, nondistended, positive bowel sounds, minimal incisional tenderness. Dressing is clean, dry and intact. Assessment: Status post open cholecystectomy in a patient with multiple medical problems as well as a lung mass that needs evaluation. Plan: Continue IV antibiotics, advance diet as tolerated, physical therapy to work with patient and rehab evaluation. The pulmonary service needs to follow- up regarding the lung mass. Patient is clinically, slowly improving. CC:
[2021-07-24] MEDS: METOPROLOL TARTRATE 5 MG/5 ML INJ IV PRN ×2 (13:03→21:32)
[2021-07-24] MEDS ORDERED: AMLODIPINE 5 MG TAB PO ONE (17:00)
[2021-07-25] MEDS: PIPER TAZO 3.375 GM in NA CHLORIDE 0.9% 100 ML IV SCH ×3 (00:11→17:16)
--- NOTE | 2021-07-25 00:25 | P.PN ---
Date of Service: 07/24/21 Subjective Subjective: Status post Day #1 from open cholecystectomy. Review of Systems 10-point ROS is otherwise unremarkable Physical Examination - Vital Signs Reviewed - Physical Exam General: Alert, In no apparent distress Respiratory: Clear to auscultation bilaterally, Normal air movement Cardiovascular: Regular rate/rhythm, Normal S1 S2 Gastrointestinal: Hypoactive, Soft and benign, Distended, Tenderness, Rebound; incision is intact; KAIA drain Neurological: Normal speech, Normal tone, Normal affect Assessment & Plan - Problems (Diagnosis) (1) Acute cholecystitis status post open cholecystectomy Current Visit: Yes Status: Acute (2) Diabetes mellitus Current Visit: No Status: Chronic Qualifiers: Diabetes mellitus type: type 2 Diabetes mellitus senior living insulin use: unspecified senior living insulin use status Diabetes mellitus complication status: with hyperglycemia Qualified Code(s): E11.65 - Type 2 diabetes mellitus with hyperglycemia (3) Hyperlipidemia Current Visit: No Status: Chronic Qualifiers: Hyperlipidemia type: unspecified Qualified Code(s): E78.5 - Hyperlipidemia, unspecified (4) Hypertension Current Visit: No Status: Chronic Qualifiers: Hypertension type: primary hypertension Qualified Code(s): I10 - Essential (primary) hypertension - Plan Plan: 1. Continue with IV antibiotics 2. Continue with IV fluids 3. Surgery consultation appreciated; status post open cholecystectomy 4. Pulmonary consultation appreciated and outpatient follow-up for lung mass 5. Monitor LFTs 6. GI and DVT prophylaxis
[2021-07-25] MEDS: NA CHLORIDE 0.9% 1,000 ML IV SCH ×2 (04:39→15:51)
[2021-07-25 05:52] LABS: Phosphorus 1.2 mg/dL (2.5-4.9); Potassium 3.4 mmol/L (3.5-5.1)
[2021-07-25] MEDS: METOPROLOL TAR 50 MG TAB PO SCH ×2 (05:55→17:17)
--- NOTE | 2021-07-25 07:51 | PN ---
Date of Progress Note: 07/25/2021 Subjective: The patient is awake and alert. No pain. Still has not had a bowel movement. Worked a little bit PT yesterday. No nausea or vomiting. Objective: His vital signs are stable. He is afebrile. KAIA drain has put out 33 cc of sanguinous fl uid. His labs are pending. His abdomen is slightly distended, but nontender slightly. Hypoactive b owel sounds. Dressings clean, dry, and intact. Assessment: Status post open cholecystectomy. Recommendations: Encourage ambulation and incentive spirometry. DVT prophylaxis. IV antibiotics. Physical Therapy to work with the patient. Advance diet as tolerated. The patient is clinically sta ble, but slowly improving. /MODL Voice ID: [id number] Report ID: [id number]
[2021-07-25] MEDS: ENOXAPARIN 40 MG/0.4 ML SQ SCH (08:40)
[2021-07-25] MEDS: POTASS/SODIUM PHOSPHATE 1 PKT POWD.PACK PO SCH ×3 (08:41→10:41)
[2021-07-25] MEDS: AMLODIPINE 10 MG TAB PO SCH (08:41)
[2021-07-25] MEDS: INSULIN -REGULAR HUMAN 50 UNIT/0.5 ML ML SQ SCH ×4 (08:41→20:47)
[2021-07-25] MEDS ORDERED: POTASSIUM CL SA 10 MEQ TAB PO ONE (09:00)
[2021-07-25] MEDS: HYDROCODONE/APAP 7.5/325 MG TAB PO PRN (13:02)
[2021-07-25] MEDS: ACETAMINOPHEN 325 MG TABLET PO PRN (15:51)
[2021-07-26] MEDS: PIPER TAZO 3.375 GM in NA CHLORIDE 0.9% 100 ML IV SCH ×3 (00:34→17:06)
[2021-07-26] MEDS: NA CHLORIDE 0.9% 1,000 ML IV SCH ×3 (04:11→21:16)
[2021-07-26] MEDS: METOPROLOL TAR 50 MG TAB PO SCH ×2 (06:17→17:06)
[2021-07-26 06:59] LABS: Absolute Lymphocytes (CBC) 1.3 K/uL (0.7-4.9); Hematocrit 34.3 % (39.6-49.0); Lymphocytes % 9.7 % (15.3-44.8); MCV 89.8 fL (80-100); MPV 8.7 fL (7.6-11.3); RBC Red Blood Cell Count 3.82 M/uL (4.33-5.43)
[2021-07-26 07:16] LABS: Albumin 1.7 g/dL (3.4-5.0); Bilirubin Total 0.7 mg/dL (0.2-1.0); Magnesium 1.7 mg/dL (1.8-2.4); Protein, Total 5.4 g/dL (6.4-8.2)
[2021-07-26 07:17] LABS: Potassium 2.7 mmol/L (3.5-5.1)
[2021-07-26] MEDS: INSULIN -REGULAR HUMAN 50 UNIT/0.5 ML ML SQ SCH ×4 (07:30→21:16)
[2021-07-26] MEDS: KCL 20 MEQ/100 mL IVPB 20 MEQ/100 ML BAG IV SCH ×3 (08:01→12:20)
[2021-07-26] MEDS: AMLODIPINE 10 MG TAB PO SCH (08:01)
[2021-07-26] MEDS: ENOXAPARIN 40 MG/0.4 ML SQ SCH (08:01)
[2021-07-26] MEDS ORDERED: LOPERAMIDE HCL 2 MG CAPSULE PO ONE (10:30)
--- NOTE | 2021-07-26 12:30 | P.PN ---
Date of Service: 07/25/21 Subjective Subjective: Patient is moving his bowels. Patient got up to the bedside commode. Patient's son was at bedside to assist. Patient clinical symptoms slowly improving. Review of Systems 10-point ROS is otherwise unremarkable Physical Examination - Vital Signs Reviewed - Physical Exam General: Alert, In no apparent distress Respiratory: Clear to auscultation bilaterally, Normal air movement Cardiovascular: Regular rate/rhythm, Normal S1 S2 Gastrointestinal: Hypoactive, Soft and benign, Distended, Tenderness, Rebound Neurological: Normal speech, Normal tone, Normal affect Assessment & Plan - Problems (Diagnosis) (1) Acute cholecystitis Current Visit: Yes Status: Acute (2) Diabetes mellitus Current Visit: No Status: Chronic Qualifiers: Diabetes mellitus type: type 2 Diabetes mellitus fdc insulin use: unspecified terminal operator insulin use status Diabetes mellitus complication status: with hyperglycemia Qualified Code(s): E11.65 - Type 2 diabetes mellitus with hyperglycemia (3) Hyperlipidemia Current Visit: No Status: Chronic Qualifiers: Hyperlipidemia type: unspecified Qualified Code(s): E78.5 - Hyperlipidemia, unspecified (4) Hypertension Current Visit: No Status: Chronic Qualifiers: Hypertension type: primary hypertension Qualified Code(s): I10 - Essential (primary) hypertension - Plan Continue with plan of care as mentioned below: 1. Continue with IV antibiotics 2. Continue with IV fluids 3. Surgery consultation appreciated; laparoscopic cholecystectomy completed. 4. Pulmonary consultation appreciated 5. Monitor LFTs 6. Outpatient lung mass work-up 7. GI and DVT prophylaxis Discharge Plan: Home Plan to discharge in: Greater than 2 days - Advance Directives Does patient have a Living Will: No Does patient have a Durable POA for Healthcare: No - Code Status/Comfort Care Code Status Assessed: Yes Code Status: Full Code Critical Care: No Time Spent Managing PTS Care (In Minutes): 45
--- NOTE | 2021-07-26 14:01 | P.PN ---
Date of Service: 07/26/21 Subjective Subjective: Patient continues to improve with no new complaints. Patient did have some diarrhea. Patient been moving his bowels since yesterday. Clinical symptoms are much better. Review of Systems 10-point ROS is otherwise unremarkable Physical Examination - Vital Signs Reviewed - Physical Exam General: Alert, In no apparent distress Respiratory: Clear to auscultation bilaterally, Normal air movement Cardiovascular: Regular rate/rhythm, Normal S1 S2 Gastrointestinal: Hypoactive, Soft and benign, Distended, Tenderness; KAIA drain Neurological: No focal deficits Assessment & Plan - Problems (Diagnosis) (1) Acute cholecystitis status post open cholecystectomy Current Visit: Yes Status: Acute (2) Diabetes mellitus Current Visit: No Status: Chronic Qualifiers: Diabetes mellitus type: type 2 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 Continue with IV antibiotics 2. Continue with gentle hydration; advance diet 3. Surgery consultation appreciated; status post open cholecystectomy 4. Outpatient pulmonary follow-up for work-up of lung mass 5. Monitor LFTs 6. GI and DVT prophylaxis Discharge Plan: Home Plan to discharge in: Greater than 2 days - Advance Directives Does patient have a Living Will: No Does patient have a Durable POA for Healthcare: No - Code Status/Comfort Care Code Status Assessed: Yes Code Status: Full Code Critical Care: No Time Spent Managing PTS Care (In Minutes): 45
[2021-07-26] MEDS ORDERED: POTASSIUM CL SA 10 MEQ TAB PO ONE (16:30)
[2021-07-26] MEDS: HYDROCODONE/APAP 7.5/325 MG TAB PO PRN (21:14)
[2021-07-27] MEDS: PIPER TAZO 3.375 GM in NA CHLORIDE 0.9% 100 ML IV SCH ×3 (00:37→17:39)
[2021-07-27] MEDS: HYDROCODONE/APAP 7.5/325 MG TAB PO PRN ×4 (03:52→21:06)
[2021-07-27 04:30] LABS: Hematocrit 35.9 % (39.6-49.0); Lymphocytes % 13.4 % (15.3-44.8); MCV 89.1 fL (80-100); MPV 8.7 fL (7.6-11.3); RBC Red Blood Cell Count 4.03 M/uL (4.33-5.43)
[2021-07-27] MEDS: METOPROLOL TAR 50 MG TAB PO SCH ×2 (05:28→17:40)
[2021-07-27 06:30] LABS: Albumin 1.7 g/dL (3.4-5.0); Bilirubin Total 0.8 mg/dL (0.2-1.0); Potassium 3.3 mmol/L (3.5-5.1); Protein, Total 5.3 g/dL (6.4-8.2)
[2021-07-27 07:42] LABS: Magnesium 1.8 mg/dL (1.8-2.4); Phosphorus 1.9 mg/dL (2.5-4.9)
[2021-07-27] MEDS: NA CHLORIDE 0.9% 1,000 ML IV SCH (07:45)
[2021-07-27] MEDS ORDERED: MAGNESIUM SULFATE 1 gm IVPB 1 GM/100 ML BAG IV ONE (09:00)
[2021-07-27] MEDS ORDERED: POTASSIUM 25 MEQ EFFERV TAB PO ONE (09:00)
--- NOTE | 2021-07-27 09:53 | P.PN ---
Date of Service: 07/27/21 Subjective: Patient is awake and alert. Patient denies significant abdominal pain. Patient has minimal incisional pain. Patient denies nausea or vomiting. Patient is tolerating diet. Patient had a bowel movement this morning. Patient has not worked well with physical therapy. Objective: Vital signs are stable he is afebrile. White count is 15,000. KAIA drain has serosanguineous [id number] cc in the last shift. Abdomen: Soft, minimally distended, positive bowel sounds, minimal incisional tenderness. Dressing is clean, dry and intact. Wound is clean and dry Assessment: Status post open cholecystectomy for gangrenous cholecystitis and cholelithiasis in a patient with multiple medical problems as well as a lung mass that needs evaluation. Plan: Continue IV antibiotics, advance diet as tolerated, physical therapy to work with patient and rehab evaluation. The pulmonary service needs to follow- up regarding the lung mass. Patient is clinically, slowly improving. If patient does not qualify for rehab, we should consider jail. Patient will need IV antibiotics for total of 10 to 14 days as the patient had severe sepsis on admission. CC:
[2021-07-27] MEDS: INSULIN -REGULAR HUMAN 50 UNIT/0.5 ML ML SQ SCH ×4 (10:01→21:08)
[2021-07-27] MEDS: POTASS/SODIUM PHOSPHATE 1 PKT POWD.PACK PO SCH ×3 (10:02→11:30)
[2021-07-27] MEDS: AMLODIPINE 10 MG TAB PO SCH (10:02)
[2021-07-27] MEDS: ENOXAPARIN 40 MG/0.4 ML SQ SCH (10:14)
--- NOTE | 2021-07-27 14:12 | P.PN ---
Subjective Date of Service: 07/27/21 Primary Care Provider: Camelia Chief Complaint: Severe Sepsis, Cholecystitis Subjective: No new changes (Still abdominal pain Ambulating with physical therapy Moving bowels well) Physical Examination - Vital Signs Temperature: 97.7 F Blood Pressure: 138/86 Pulse: 98 Respirations: 18 Pulse Ox (%): 95 - Studies Microbiology Data (last 24 hrs): 07/21/21 18:15 Blood - Blood Aerobic Blood Culture - Final No growth in 5 days. 07/21/21 18:15 Blood - Blood Anaerobic Blood Culture - Final No growth in 5 days. 07/21/21 17:50 Blood - Blood Aerobic Blood Culture - Final No growth in 5 days. 07/21/21 17:50 Blood - Blood Anaerobic Blood Culture - Final No growth in 5 days. Medications List Reviewed: Yes Assessment And Plan Physician Review: Patient Assessed, Agree with Above Assessment and Plan Physician Review Additional Text: 07/27/21 14:10 - Physical Exam General: Alert, In no apparent distress Respiratory: Clear to auscultation bilaterally, Normal air movement Cardiovascular: Regular rate/rhythm, Normal S1 S2 Gastrointestinal: Hypoactive, Soft and benign, Distended, abdominal binder in situ, tenderness; KAIA drain Neurological: No focal deficits Assessment & Plan - Problems (Diagnosis) (1) Acute cholecystitis status post open cholecystectomy Current Visit: Yes Status: Acute (2) Diabetes mellitus Current Visit: No Status: Chronic Qualifiers: Diabetes mellitus type: type 2 Diabetes mellitus assisted insulin use: unspecified 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 insulin use status Diabetes mellitus complication status: with hyperglycemia Qualified Code(s): E11.65 - Type 2 diabetes mellitus with hyperglycemia (3) Hyperlipidemia Current Visit: No Status: Chronic Qualifiers: Hyperlipidemia type: unspecified Qualified Code(s): E78.5 - Hyperlipidemia, unspecified (4) Hypertension Current Visit: No Status: Chronic Qualifiers: Hypertension type: primary hypertension Qualified Code(s): I10 - Essential (primary) hypertension - Plan Wean off Owusu Continue abdominal binder Continue abdominal pain control Abdominal distention and persistent pain likely due to ileus but moving bowels well Appreciate surgery evaluation, Status post open cholecystectomy for gangrenous cholecystitis, surgery recommend IV antibiotics for extra 10 days Follow-up plan for SNF Place PICC line Previously noted lung mass, follow pulmonary as outpatient for further work-up 5. Monitor LFTs 6. GI and DVT prophylaxis Discharge Plan: Home Plan to discharge in: Possible home in a.m. Time Spent Managing PTS Care (In Minutes): 35
[2021-07-27] MEDS ORDERED: POTASSIUM PHOS IN 0.9 % NACL 15 MMOL/250 ML BAG IV ONE (14:13)
--- NOTE | 2021-07-27 20:12 | RAD REPORT ---
EXAM DESCRIPTION: RAD - Chest Single View - 07/26/2021 3:40 am TECHNIQUE: Chest radiograph single view. CLINICAL HISTORY: PICC line placement COMPARISON: None . FINDINGS: Heart: Normal contour. Mediastinum/Vessels: Normal contour. Lungs/Pleural space: Asymmetrical ground glass opacity seen in the right lung apex. There is mild a telectasis at the left lung base. No effusion. No pneumothorax. Bony thorax: No acute osseous abnormality. Life support devices: Left PICC line tip is in the superior vena cava. IMPRESSION: Asymmetric groundglass opacity at the right lung apex, may be related to a focal infiltr ate and/or overlying pleural disease. Left PICC line tip is in the superior vena cava Electronically signed by: Mervat Jackson MD 07/26/2021 5:35 AM CDT Due to temporary technical issues with the PACS/Fluency reporting system, reports are being signed by the in house radiologist without review as a courtesy to ensure prompt reporting. The interpreting r adiologist is fully responsible for the content of the report.
[2021-07-27] MEDS: LACTOBACILLUS/ACIDOPHILUS TAB PO SCH (21:06)
[2021-07-28] MEDS: PIPER TAZO 3.375 GM in NA CHLORIDE 0.9% 100 ML IV SCH ×3 (01:12→18:06)
[2021-07-28] MEDS: HYDROCODONE/APAP 7.5/325 MG TAB PO PRN ×3 (02:12→22:21)
[2021-07-28] MEDS: METOPROLOL TAR 50 MG TAB PO SCH ×2 (05:41→18:06)
[2021-07-28 06:14] LABS: Absolute Lymphocytes (CBC) 2.2 K/uL (0.7-4.9); Hematocrit 36.2 % (39.6-49.0); Lymphocytes % 11.7 % (15.3-44.8); MCV 89.6 fL (80-100); MPV 8.8 fL (7.6-11.3); RBC Red Blood Cell Count 4.04 M/uL (4.33-5.43)
[2021-07-28 06:28] LABS: Albumin 1.8 g/dL (3.4-5.0); Bilirubin Total 0.7 mg/dL (0.2-1.0); Phosphorus 2.4 mg/dL (2.5-4.9); Potassium 3.5 mmol/L (3.5-5.1); Protein, Total 5.7 g/dL (6.4-8.2)
[2021-07-28] MEDS: INSULIN -REGULAR HUMAN 50 UNIT/0.5 ML ML SQ SCH ×4 (07:30→19:57)
--- NOTE | 2021-07-28 07:50 | P.PN ---
Date of Service: 07/28/21 Subjective: Patient is awake and alert. Patient is tolerating diet. Patient is full assist with physical therapy and nursing staff. Patient denies nausea or vomiting. Patient had a bowel movement. Objective: Vital signs are stable he is afebrile. White count is 19,000. KAIA drain has serosanguineous [id number] cc in the last shift. Abdomen: Soft, minimally distended, positive bowel sounds, minimal incisional tenderness. Dressing is clean, dry and intact. Wound is clean and dry Assessment: Status post open cholecystectomy for gangrenous cholecystitis and cholelithiasis in a patient with multiple medical problems as well as a lung mass that needs evaluation. Patient white blood cell count is increasing. Plan: Continue IV antibiotics, advance diet as tolerated, physical therapy to work with patient. The pulmonary service needs to follow-up regarding the lung mass. Patient is clinically, slowly improving. If patient does not qualify for rehab, we should consider intermediate. Patient will need IV antibiotics for total of 10 to 14 days as the patient had severe sepsis on admission. Discussed the case with Dr. Leal, we will get a CT of the chest, abdomen and pelvis to assure no development of an abscess or pneumonia at the base of the lungs. CC:
[2021-07-28] MEDS: LACTOBACILLUS/ACIDOPHILUS TAB PO SCH (08:42)
[2021-07-28] MEDS: ENOXAPARIN 40 MG/0.4 ML SQ SCH (08:42)
[2021-07-28] MEDS: AMLODIPINE 10 MG TAB PO SCH (08:43)
[2021-07-28] MEDS ORDERED: POTASSIUM 25 MEQ EFFERV TAB PO ONE (09:00)
--- NOTE | 2021-07-28 13:00 | RAD REPORT ---
EXAM DESCRIPTION: CT - Abdomen Pelvis Wo Contrast - 07/28/2021 10:03 am CLINICAL HISTORY: Abdominal pain COMPARISON: July 21, 2021 TECHNIQUE: Computed axial tomography of the abdomen and pelvis was obtained. IV and oral contrast we re not requested. All CT scans are performed using dose optimization technique as appropriate and may include automated exposure control or mA/KV adjustment according to patient size. FINDINGS: The evaluation of solid organs, vessels and bowel is limited secondary to the lack of con trast administration. Cholecystectomy. Approximately 5 x 1.5 centimeter fluid collection gallbladder fossa containing small amount of air. Right upper quadrant drain. Small right pleural effusion Mild dilatation of colon probably an ileus. Minimal amount of ascites. There is no evidence of diverticulitis. Mild patchy left lower lobe opacities. Mild right lower lobe atelectasis IMPRESSION: 5 x 1.5 centimeter fluid collection gallbladder fossa may represent an abscess Mild left lower lobe patchy opacities may indicate infection Colonic ileus
--- NOTE | 2021-07-28 14:22 | P.PN ---
Subjective Date of Service: 07/28/21 Primary Care Provider: Camelia Chief Complaint: Severe Sepsis, Cholecystitis Subjective: Worsening (Still persistent abdominal pain Evaluated by general surgery again this morning, recommend CT) Physical Examination - Vital Signs Temperature: 97.6 F Blood Pressure: 133/81 Pulse: 91 Respirations: 18 Pulse Ox (%): 94 - Studies Medications List Reviewed: Yes Assessment And Plan Physician Review: Patient Assessed, Agree with Above Assessment and Plan Physician Review Additional Text: CT abdomen and pelvics findingmild left lower lobe infiltrate, 5.5 cm gallbla dder. Fluid collection concerning for abscess, colonic ileus - Physical Exam General: Alert, in mild pain distress Respiratory: Clear to auscultation bilaterally, Normal air movement Cardiovascular: Regular rate/rhythm, Normal S1 S2 Gastrointestinal: Distended, abdominal binder in situ, tenderness; KAIA drain Extremitiesno pedal edema bilaterally Neurological: No focal deficits Assessment & Plan - Problems (Diagnosis) (1) Acute cholecystitis status post open cholecystectomy Current Visit: Yes Status: Acute (2) Diabetes mellitus Current Visit: No Status: Chronic Qualifiers: Diabetes mellitus type: type 2 Diabetes mellitus assisted insulin use: unspecified terminal supervisor insulin use status Diabetes mellitus complication status: with hyperglycemia Qualified Code(s): E11.65 - Type 2 diabetes mellitus with hyperglycemia (3) Hyperlipidemia Current Visit: No Status: Chronic Qualifiers: Hyperlipidemia type: unspecified Qualified Code(s): E78.5 - Hyperlipidemia, unspecified (4) Hypertension Current Visit: No Status: Chronic Qualifiers: Hypertension type: primary hypertension Qualified Code(s): I10 - Essential (primary) hypertension Postcholecystectomy gallbladder fossa abscess Colonic ileus Left lower lobe pneumonia - Plan CT imaging showing intra-abdominal abscess indigo bladder. We discussed with surgery Add Flagyl, continue Zosyn May need repeat laparoscopic evaluation Continue abdominal binder Ileus causing distention, continue laxative since no bowel movement now Continue abdominal pain control Status post open cholecystectomy for gangrenous cholecystitis Follow-up plan for SNF Place PICC line Previously noted lung mass, follow pulmonary as outpatient for further work-up 5. Monitor LFTs 6. GI and DVT prophylaxis Discharge Plan: snf
[2021-07-28] MEDS: LACTULOSE 20 GM/30 ML UCUP PO SCH ×2 (14:23→21:00)
[2021-07-28] MEDS: METRONIDAZOLE 500mg IVPB 500 MG/100 ML BAG IV SCH (18:06)
[2021-07-28] MEDS: HYDROMORPHONE HCL 1 MG/ML INJ IV PRN (18:08)
[2021-07-29] MEDS: METRONIDAZOLE 500mg IVPB 500 MG/100 ML BAG IV SCH ×2 (00:21→08:54)
[2021-07-29] MEDS: PIPER TAZO 3.375 GM in NA CHLORIDE 0.9% 100 ML IV SCH ×2 (00:21→09:11)
[2021-07-29] MEDS: HYDROMORPHONE HCL 1 MG/ML INJ IV PRN ×3 (01:20→10:24)
[2021-07-29 06:12] LABS: Absolute Lymphocytes (CBC) 2.7 K/uL (0.7-4.9); Hematocrit 37.2 % (39.6-49.0); Lymphocytes % 14.6 % (15.3-44.8); MCV 91.4 fL (80-100); MPV 8.7 fL (7.6-11.3); RBC Red Blood Cell Count 4.07 M/uL (4.33-5.43)
[2021-07-29] MEDS: METOPROLOL TAR 50 MG TAB PO SCH ×2 (06:22→17:05)
[2021-07-29 06:34] LABS: Albumin 2.1 g/dL (3.4-5.0); Bilirubin Total 0.8 mg/dL (0.2-1.0); Potassium 3.6 mmol/L (3.5-5.1); Protein, Total 6.4 g/dL (6.4-8.2)
[2021-07-29 06:51] LABS: White Blood Cell Scan OK (OK)
[2021-07-29 06:52] LABS: Blood Morphology Comment NOT SEEN (NOT SEEN); Platelet Estimate ADEQ
[2021-07-29] MEDS ORDERED: FUROSEMIDE 40 MG/4 ML VIAL IV ONE (07:32)
[2021-07-29 07:54] LABS: Magnesium 2.1 mg/dL (1.8-2.4); Phosphorus 2.8 mg/dL (2.5-4.9)
[2021-07-29] MEDS: INSULIN -REGULAR HUMAN 50 UNIT/0.5 ML ML SQ SCH ×4 (08:50→21:56)
[2021-07-29] MEDS: LACTOBACILLUS/ACIDOPHILUS TAB PO SCH (08:51)
[2021-07-29] MEDS: ENOXAPARIN 40 MG/0.4 ML SQ SCH (08:51)
[2021-07-29] MEDS: AMLODIPINE 10 MG TAB PO SCH (08:52)
[2021-07-29] MEDS: LACTULOSE 20 GM/30 ML UCUP PO SCH ×2 (08:53→21:00)
[2021-07-29] MEDS ORDERED: POTASSIUM CL SA 10 MEQ TAB PO ONE (09:00)
--- NOTE | 2021-07-29 09:06 | P.PN ---
Date of Service: 07/29/21 Subjective: Patient is awake and alert. Patient is tolerating full liquid diet. Patient still not moving well. Objective: Vital signs are stable he is afebrile. White count is 18,[address] of the abdomen pelvis reviewed with the radiologist. Essentially, patient has a 5 x 2 cm collection in the gallbladder fossa which potentially could be an abscess or more likely the Surgicel that was used. Patient also has atelectasis in both lung bases. Abdomen: Soft, minimally distended, positive bowel sounds, minimal incisional tenderness. Dressing is clean, dry and intact. Wound is clean and dry Assessment: Status post open cholecystectomy for gangrenous cholecystitis and cholelithiasis in a patient with multiple medical problems as well as a lung mass that needs evaluation. Plan: I discussed the findings of the CAT scan with the radiologist. He feels that if the patient spikes temperatures that is most likely an abscess. However, patient has not had any temperature spikes. I discussed the case with Dr. Leal. We will broaden his antibiotic coverage with meropenem. If the patient does not improve, then patient may need a percutaneous drainage of the collection. Discharge planning is is being taken care of by social service. Patient probably would benefit from fci. This was explained to the family members. We will also advance the patient's diet. CC:
[2021-07-29] MEDS: VANCOMYCIN 1.25 GM in NA CHLORIDE 0.9% 250 ML IVPB SCH (10:51)
[2021-07-29] MEDS ORDERED: VANCOMYCIN 1 GM in NA CHLORIDE 0.9% 250 ML IVPB SCH (11:00)
--- NOTE | 2021-07-29 14:07 | P.PN ---
Subjective Date of Service: 07/29/21 Primary Care Provider: Camelia Chief Complaint: Severe Sepsis, Cholecystitis Subjective: No new changes (Still significant abdominal pain States he had some bowel movement yesterday Patient complaining of sensation of fullness in the bladder, bladder scan as needed only 169 mils. Daughter at bedside discussed with, surgical team also discussed with) Physical Examination - Vital Signs Temperature: 98.9 F Blood Pressure: 136/85 Pulse: 111 Respirations: 16 Pulse Ox (%): 91 - Studies Medications List Reviewed: Yes Assessment And Plan Physician Review: Patient Assessed, Agree with Above Assessment and Plan Physician Review Additional Text: CT abdomen and pelvics findingmild left lower lobe infiltrate, 5.5 cm gallbladder. Fluid collection concerning for abscess, colonic ileus - Physical Exam General: Alert, in mild pain distress Respiratory: Clear to auscultation bilaterally, Normal air movement Cardiovascular: Regular rate/rhythm, Normal S1 S2 Gastrointestinal: Slightly less distended compared to yesterday, beverage distiller on palpation, abdominal binder in situ, still KAIA drain Extremitiesno pedal edema bilaterally Neurological: No focal deficits Assessment & Plan - Problems (Diagnosis) (1) Acute cholecystitis status post open cholecystectomy Current Visit: Yes Status: Acute (2) Diabetes mellitus Current Visit: No Status: Chronic Qualifiers: Diabetes mellitus type: type 2 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 snf insulin use status Diabetes mellitus complication status: with hyperglycemia Qualified Code(s): E11.65 - Type 2 diabetes mellitus with hyperglycemia (3) Hyperlipidemia Current Visit: No Status: Chronic Qualifiers: Hyperlipidemia type: unspecified Qualified Code(s): E78.5 - Hyperlipidemia, unspecified (4) Hypertension Current Visit: No Status: Chronic Qualifiers: Hypertension type: primary hypertension Qualified Code(s): I10 - Essential (primary) hypertension -Postcholecystectomy gallbladder fossa abscess versus fluid collection -Colonic ileus -Left lower lobe pneumonia Lung mass noted on CT, follow pulmonary as outpatient for follow-up work-up - Plan Still significant leukocytosis with marginal change since yesterday SurgeryDr. Patino discussed with, plan to switch antibiotics to Merrem, will add Vanco Follow WBC trend in a.m. Postop ileus, moving bowels with lactulose, continue medication Lower urinary tract symptoms may be due to bladder retention, will place Owusu again for now until abdominal ileus and abscess intra-abdominal abscess infection resolved Might need percutaneous drainage by IR in a.m. asymptomatic leukocytosis -Continue abdominal pain control -Status post open cholecystectomy for gangrenous cholecystitis Follow-up plan for SNF, PEG tube pain with patient insurance regarding inpatient rehab scheduled today Renal function improved Borderline low serum sodium, monitor Mild elevated glucose level, continue insulin regimen Mild elevated LFTs with elevated alkaline phosphatase, follow trend Follow daily magnesium level and replete Daughter at bedside discussed with Discharge Plan: snf 0 07/29/21 14:08 Time Spent Managing PTS Care (In Minutes): 35
[2021-07-29] MEDS: MORPHINE 2 MG/ML SYR IV PRN (15:20)
[2021-07-29] MEDS: Meropenem 1,000 MG in NA CHLORIDE 0.9% 100 ML IV SCH (21:00)
[2021-07-30] MEDS: METOPROLOL TAR 50 MG TAB PO SCH ×2 (05:21→17:55)
[2021-07-30 05:59] LABS: Absolute Lymphocytes (CBC) 1.4 K/uL (0.7-4.9); Hematocrit 31.7 % (39.6-49.0); Lymphocytes % 9.9 % (15.3-44.8); MCV 89.5 fL (80-100); MPV 8.1 fL (7.6-11.3); RBC Red Blood Cell Count 3.54 M/uL (4.33-5.43)
[2021-07-30 06:20] LABS: Albumin 1.7 g/dL (3.4-5.0); Bilirubin Total 0.5 mg/dL (0.2-1.0); Magnesium 1.8 mg/dL (1.8-2.4); Phosphorus 1.8 mg/dL (2.5-4.9); Protein, Total 5.4 g/dL (6.4-8.2)
[2021-07-30 06:22] LABS: Potassium 2.7 mmol/L (3.5-5.1)
[2021-07-30] MEDS: MORPHINE 2 MG/ML SYR IV PRN ×2 (06:29→14:26)
[2021-07-30] MEDS: KCL 20 MEQ/100 mL IVPB 20 MEQ/100 ML BAG IV SCH ×3 (06:41→22:19)
[2021-07-30] MEDS ORDERED: KCL 20 MEQ/100 mL IVPB 20 MEQ/100 ML BAG IV SCH (07:00)
[2021-07-30] MEDS ORDERED: MAGNESIUM SULFATE 1 gm IVPB 1 GM/100 ML BAG IV ONE (09:00)
[2021-07-30] MEDS: INSULIN -REGULAR HUMAN 50 UNIT/0.5 ML ML SQ SCH ×4 (09:48→20:28)
[2021-07-30] MEDS: ENOXAPARIN 40 MG/0.4 ML SQ SCH (09:49)
[2021-07-30] MEDS: LACTOBACILLUS/ACIDOPHILUS TAB PO SCH (09:49)
[2021-07-30] MEDS: LACTULOSE 20 GM/30 ML UCUP PO SCH ×2 (09:49→20:23)
[2021-07-30] MEDS: Meropenem 1,000 MG in NA CHLORIDE 0.9% 100 ML IV SCH ×2 (09:50→20:23)
[2021-07-30] MEDS: AMLODIPINE 10 MG TAB PO SCH (09:51)
--- NOTE | 2021-07-30 10:19 | P.PN ---
Date of Service: 07/30/21 Subjective: Patient is awake and alert. Patient is tolerating regular liquid diet. Patient is more active. Objective: Vital signs are stable he is afebrile. White count is 14,000 this morning. Abdomen: Soft, non-distended, positive bowel sounds, non-tender. Dressing is clean, dry and intact. Wound is clean and dry Assessment: Status post open cholecystectomy for gangrenous cholecystitis and cholelithiasis in a patient with multiple medical problems as well as a lung mass that needs evaluation. Plan: Patient is clinically improving. Discussed with the hospitalist regarding need for CT-guided drainage. At this point, I do not believe it is indicated as patient is afebrile and white count is improving. Discharge planning is in progress. CC:
[2021-07-30] MEDS ORDERED: POTASSIUM PHOS IN 0.9 % NACL 15 MMOL/250 ML BAG IV ONE (11:00)
[2021-07-30] MEDS: POTASS/SODIUM PHOSPHATE 1 PKT POWD.PACK PO SCH ×2 (12:34→20:23)
--- NOTE | 2021-07-30 15:20 | P.PN ---
Subjective Date of Service: 07/30/21 Primary Care Provider: Camelia Chief Complaint: Severe Sepsis, Cholecystitis Subjective: No new changes, Tolerating diet Physical Examination - Vital Signs Temperature: 97.4 F Blood Pressure: 118/73 Pulse: 87 Respirations: 16 Pulse Ox (%): 96 - Studies Medications List Reviewed: Yes Assessment And Plan Physician Review: Patient Assessed, Agree with Above Assessment and Plan Physician Review Additional Text: CT abdomen and pelvics findingmild left lower lobe infiltrate, 5.5 cm gallbladder. Fluid collection concerning for abscess, colonic ileus - Physical Exam General: Alert, still mild pain, on room air Respiratory: Clear to auscultation bilaterally, Normal air movement Cardiovascular: Regular rate/rhythm, Normal S1 S2 Gastrointestinal: Slightly less distended compared to yesterday, steam box tender on palpation, abdominal binder in situ, still KAIA drain Extremitiesno pedal edema bilaterally Neurological: No focal deficits Assessment & Plan - Problems (Diagnosis) (1) Acute cholecystitis status post open cholecystectomy Current Visit: Yes Status: Acute (2) Diabetes mellitus Current Visit: No Status: Chronic Qualifiers: Diabetes mellitus type: type 2 Diabetes mellitus alf insulin use: unspecified 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 insulin 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 status Diabetes mellitus complication status: with hyperglycemia Qualified Code(s): E11.65 - Type 2 diabetes mellitus with hyperglycemia (3) Hyperlipidemia Current Visit: No Status: Chronic Qualifiers: Hyperlipidemia type: unspecified Qualified Code(s): E78.5 - Hyperlipidemia, unspecified (4) Hypertension Current Visit: No Status: Chronic Qualifiers: Hypertension type: primary hypertension Qualified Code(s): I10 - Essential (primary) hypertension -Postcholecystectomy gallbladder fossa abscess versus fluid collection -Colonic ileus -Left lower lobe pneumonia Lung mass noted on CT, follow pulmonary as outpatient for follow-up work-up Plan Leukocytosis trending down Continue Merrem and Vanco, switch to only Merrem in a.m. No urgent need for drainage of the gall bladder in am Postop ileus, moving bowels with lactulose Continue Owusu Noticed with penile edema, reduced Owusu size, start low-dose Lasix Abdominal ileus slowly improving, continue appetite increase we will add Remeron Continue abdominal pain control s/p post open cholecystectomy for gangrenous cholecystitis controlled glucose level, continue insulin regimen Mild elevated LFTs with elevated alkaline phosphatase, follow trend Daughter at bedside discussed with Discharge Plan: SNF, Peer to peer review done today Time Spent Managing PTS Care (In Minutes): 35
[2021-07-30] MEDS: VANCOMYCIN 1.25 GM in NA CHLORIDE 0.9% 250 ML IVPB SCH (15:49)
[2021-07-30] MEDS: ENSURE HIGH PROTEIN 237 ML CAN PO SCH (20:25)
[2021-07-31] MEDS: KCL 20 MEQ/100 mL IVPB 20 MEQ/100 ML BAG IV SCH ×4 (01:04→13:17)
[2021-07-31] MEDS ORDERED: KCL 20 MEQ/100 mL IVPB 200 ML IV ONE (01:07)
[2021-07-31] MEDS: METOPROLOL TAR 50 MG TAB PO SCH ×2 (06:09→17:46)
[2021-07-31 06:31] LABS: Absolute Lymphocytes (CBC) 1.8 K/uL (0.7-4.9); Hematocrit 33.6 % (39.6-49.0); Lymphocytes % 12.6 % (15.3-44.8); MCV 89.3 fL (80-100); MPV 7.8 fL (7.6-11.3); RBC Red Blood Cell Count 3.76 M/uL (4.33-5.43)
[2021-07-31 06:43] LABS: Albumin 1.9 g/dL (3.4-5.0); Bilirubin Total 0.5 mg/dL (0.2-1.0); Protein, Total 5.8 g/dL (6.4-8.2)
[2021-07-31 08:04] LABS: Blood Morphology Comment NOT SEEN (NOT SEEN); Platelet Estimate ADEQ; White Blood Cell Scan OK (OK)
[2021-07-31] MEDS: POTASS/SODIUM PHOSPHATE 1 PKT POWD.PACK PO SCH ×2 (08:30→20:38)
[2021-07-31] MEDS: AMLODIPINE 10 MG TAB PO SCH (08:30)
[2021-07-31] MEDS: ENOXAPARIN 40 MG/0.4 ML SQ SCH (08:30)
[2021-07-31] MEDS: INSULIN -REGULAR HUMAN 50 UNIT/0.5 ML ML SQ SCH ×4 (08:31→21:00)
[2021-07-31] MEDS: LACTOBACILLUS/ACIDOPHILUS TAB PO SCH (08:31)
[2021-07-31] MEDS: ENSURE HIGH PROTEIN 237 ML CAN PO SCH ×2 (08:32→21:00)
[2021-07-31] MEDS: LACTULOSE 20 GM/30 ML UCUP PO SCH (08:32)
[2021-07-31] MEDS: Meropenem 1,000 MG in NA CHLORIDE 0.9% 100 ML IV SCH ×2 (08:32→20:37)
--- NOTE | 2021-07-31 13:06 | P.PN ---
Subjective Date of Service: 07/31/21 Primary Care Provider: Camelia Chief Complaint: Severe Sepsis, Cholecystitis Subjective: No new changes (Noted with blisters overnight Lactulose held now States abdominal distention much improved Tolerating p.o. better today Family at bedside discussed with) Physical Examination - Vital Signs Temperature: 97.3 F Blood Pressure: 113/69 Pulse: 78 Respirations: 16 Pulse Ox (%): 97 - Studies Medications List Reviewed: Yes Assessment And Plan Physician Review: Patient Assessed, Agree with Above Assessment and Plan Physician Review Additional Text: CT abdomen and pelvics findingmild left lower lobe infiltrate, 5.5 cm gallbladder. 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, abdominal binder in situ, still KAIA drain Extremitiesno pedal edema bilaterally Neurological: No focal deficits Assessment & Plan - Problems (Diagnosis) (1) Acute cholecystitis status post open cholecystectomy Current Visit: Yes Status: Acute (2) Diabetes mellitus Current Visit: No Status: Chronic Qualifiers: Diabetes mellitus type: type 2 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: unspecified family law specialist insulin use status Diabetes mellitus complication status: with hyperglycemia Qualified Code(s): E11.65 - Type 2 diabetes mellitus with hyperglycemia (3) Hyperlipidemia Current Visit: No Status: Chronic Qualifiers: Hyperlipidemia type: unspecified Qualified Code(s): E78.5 - Hyperlipidemia, unspecified (4) Hypertension Current Visit: No Status: Chronic Qualifiers: Hypertension type: primary hypertension Qualified Code(s): I10 - Essential (primary) hypertension -Postcholecystectomy gallbladder fossa abscess versus fluid collection -Postop colonic ileus -Left lower lobe pneumonia Lung mass noted on CT, follow pulmonary as outpatient for follow-up work-up Plan Leukocytosis continue trending down Continue Merrem and Vanco, switch to only Merrem in a.m. No urgent need for drainage of the gall bladder fossa fluid collection now Postop ileus, moving bowels with lactulose, since new diarrhea, hold lactulose Continue Owusu Urine retention, continue straight cath with postvoid residual Continue abdominal pain control s/p post open cholecystectomy for gangrenous cholecystitis controlled glucose level, continue insulin regimen Mild elevated LFTs with elevated alkaline phosphatase, follow trend Follow PT/OT, will need SNF Discharge Plan: SNF, Peer to peer review done Time Spent Managing PTS Care (In Minutes): 35
[2021-07-31] MEDS: VANCOMYCIN 1.25 GM in NA CHLORIDE 0.9% 250 ML IVPB SCH (13:17)
--- NOTE | 2021-07-31 15:41 | PN ---
Date of Progress Note: 07/31/2021 Subjective: The patient is awake and alert. No pain. Tolerating diet. Having loose bowel movement s. Vitals stable, afebrile. Laboratory Data: Reviewed. White count is 14.2, slight left shift: KAIA drain put out 50 cc in the l ast shift. Objective: Abdomen: Benign. Wound is clean, dry and intact. Assessment: Status post open cholecystectomy for gangrenous cholecystitis. Recommendation: Discharge planning in progress. Continue IV antibiotics and continue work with phys ical therapy. The patient is clinically stable and slowly improving. /MODL Voice ID: [id number] Report ID: [id number]
[2021-07-31] MEDS ORDERED: LACTULOSE 20 GM/30 ML UCUP PO PRN (19:40)
[2021-07-31] MEDS: MORPHINE 2 MG/ML SYR IV PRN ×2 (20:39→23:57)
[2021-08-01] MEDS: VANCOMYCIN 1.25 GM in NA CHLORIDE 0.9% 250 ML IVPB SCH ×2 (05:00→23:42)
[2021-08-01] MEDS: METOPROLOL TAR 50 MG TAB PO SCH ×2 (05:40→18:26)
[2021-08-01 06:28] LABS: Absolute Lymphocytes (CBC) 1.4 K/uL (0.7-4.9); Hematocrit 34.4 % (39.6-49.0); MPV 8.3 fL (7.6-11.3); RBC Red Blood Cell Count 3.83 M/uL (4.33-5.43)
[2021-08-01 06:59] LABS: Albumin 1.9 g/dL (3.4-5.0); Bilirubin Total 0.5 mg/dL (0.2-1.0); Protein, Total 5.8 g/dL (6.4-8.2)
[2021-08-01 07:05] LABS: Potassium 2.9 mmol/L (3.5-5.1)
[2021-08-01] MEDS: INSULIN -REGULAR HUMAN 50 UNIT/0.5 ML ML SQ SCH ×4 (07:30→21:00)
[2021-08-01] MEDS ORDERED: POTASSIUM CL 60 MEQ in NA CHLORIDE 0.9% 500 ML IV SCH (08:00)
[2021-08-01] MEDS: ENSURE HIGH PROTEIN 237 ML CAN PO SCH ×2 (08:48→21:00)
[2021-08-01] MEDS: Meropenem 1,000 MG in NA CHLORIDE 0.9% 100 ML IV SCH ×2 (08:49→21:12)
[2021-08-01] MEDS: KCL 20 MEQ/100 mL IVPB 20 MEQ/100 ML BAG IV SCH ×3 (08:50→18:14)
[2021-08-01] MEDS: ENOXAPARIN 40 MG/0.4 ML SQ SCH (08:51)
[2021-08-01] MEDS: AMLODIPINE 10 MG TAB PO SCH (08:51)
[2021-08-01] MEDS: MORPHINE 2 MG/ML SYR IV PRN ×2 (08:51→18:14)
[2021-08-01] MEDS: POTASS/SODIUM PHOSPHATE 1 PKT POWD.PACK PO SCH ×2 (08:52→21:13)
[2021-08-01] MEDS: LACTOBACILLUS/ACIDOPHILUS TAB PO SCH (08:55)
--- NOTE | 2021-08-01 10:51 | P.PN ---
Date of Service: 08/01/21 Subjective: Patient is awake and alert. Patient is tolerating regular liquid diet. Patient is more active. Objective: Vital signs are stable he is afebrile. White count is 14.2 and KAIA has put out 80 cc of serosanguineous fluid in the last shift. Abdomen: Soft, non-distended, positive bowel sounds, non-tender. Dressing is clean, dry and intact. Wound is clean and dry Assessment: Status post open cholecystectomy for gangrenous cholecystitis and cholelithiasis in a patient with multiple medical problems as well as a lung mass that needs evaluation. Plan: Patient is clinically improving. Continue IV antibiotics. Physical therapy, DVT prophylaxis, incentive spirometry and await discharge plan. CC:
--- NOTE | 2021-08-01 15:14 | P.PN ---
Subjective Date of Service: 08/01/21 Primary Care Provider: Camelia Chief Complaint: Severe Sepsis, Cholecystitis Subjective: No new changes Physical Examination - Vital Signs Temperature: 97.4 F Blood Pressure: 140/86 Pulse: 87 Respirations: 16 Pulse Ox (%): 96 - Physical Exam General: Alert HEENT: Atraumatic, Normocephalic Neck: Supple Respiratory: Normal air movement Cardiovascular: Regular rate/rhythm, Normal S1 S2 Gastrointestinal: Distended, Tenderness Neurological: Normal speech - Studies Medications List Reviewed: Yes Assessment And Plan - Plan Assessment & Plan - Problems (Diagnosis) (1) Acute cholecystitis status post open cholecystectomy Current Visit: Yes Status: Acute (2) Diabetes mellitus Current Visit: No Status: Chronic Qualifiers: Diabetes mellitus type: type 2 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 Diabetes mellitus complication status: with hyperglycemia Qualified Code(s): E11.65 - Type 2 diabetes mellitus with hyperglycemia (3) Hyperlipidemia Current Visit: No Status: Chronic Qualifiers: Hyperlipidemia type: unspecified Qualified Code(s): E78.5 - Hyperlipidemia, unspecified (4) Hypertension Current Visit: No Status: Chronic Qualifiers: Hypertension type: primary hypertension Qualified Code(s): I10 - Essential (primary) hypertension -Postcholecystectomy gallbladder fossa abscess versus fluid collection -Postop colonic ileus -Left lower lobe pneumonia Lung mass noted on CT, follow pulmonary as outpatient for follow-up work-up Hypokalemia-on repletion. Plan Leukocytosis continue trending down Continue Merrem for now. No urgent need for drainage of the gall bladder fossa fluid collection now Postop ileus now resolved. presently moving bowels. Has dysuria, we will continue pyridium for burning micturition. s/p post open cholecystectomy for gangrenous cholecystitis, surgeon following. no significant increase in fluid output. controlled glucose level, continue insulin regimen. Mild elevated LFTs with elevated alkaline phosphatase, follow trend. Very low potassium noted this am at 2.9. we will follow levels closely. Physician Review: Patient Assessed, Agree with Above Assessment and Plan
[2021-08-01] MEDS ORDERED: KCL 20 MEQ/100 mL IVPB 20 MEQ/100 ML BAG IV SCH (18:00)
[2021-08-02] MEDS: METOPROLOL TAR 50 MG TAB PO SCH ×2 (05:25→18:04)
[2021-08-02] MEDS: MORPHINE 2 MG/ML SYR IV PRN ×2 (05:26→14:20)
[2021-08-02 06:47] LABS: Absolute Lymphocytes (CBC) 1.2 K/uL (0.7-4.9); Hematocrit 32.5 % (39.6-49.0); Lymphocytes % 9.9 % (15.3-44.8); MPV 8.3 fL (7.6-11.3); RBC Red Blood Cell Count 3.65 M/uL (4.33-5.43)
[2021-08-02 07:05] LABS: Albumin 1.8 g/dL (3.4-5.0); Bilirubin Total 0.5 mg/dL (0.2-1.0); Protein, Total 5.6 g/dL (6.4-8.2)
[2021-08-02 07:07] LABS: Potassium 2.7 mmol/L (3.5-5.1)
[2021-08-02] MEDS: INSULIN -REGULAR HUMAN 50 UNIT/0.5 ML ML SQ SCH ×4 (07:30→21:23)
--- NOTE | 2021-08-02 08:58 | P.PN ---
Subjective Date of Service: 08/02/21 Primary Care Provider: Camelia Chief Complaint: Severe Sepsis, Cholecystitis Subjective: No new changes Physical Examination - Vital Signs Temperature: 97.5 F Blood Pressure: 136/86 Pulse: 83 Respirations: 18 Pulse Ox (%): 98 - Physical Exam General: Alert, Oriented x3 HEENT: Atraumatic, Normocephalic Respiratory: Normal air movement Cardiovascular: Regular rate/rhythm, Normal S1 S2 Gastrointestinal: Soft and benign Musculoskeletal: No swelling Neurological: Normal speech - Studies Medications List Reviewed: Yes Assessment And Plan - Plan Assessment & Plan - Problems (Diagnosis) (1) Acute cholecystitis status post open cholecystectomy Current Visit: Yes Status: Acute (2) Diabetes mellitus Current Visit: No Status: Chronic Qualifiers: Diabetes mellitus type: type 2 Diabetes mellitus prison insulin use: unspecified prison insulin use status Diabetes mellitus complication status: with hyperglycemia Qualified Code(s): E11.65 - Type 2 diabetes mellitus with hyperglycemia (3) Hyperlipidemia Current Visit: No Status: Chronic Qualifiers: Hyperlipidemia type: unspecified Qualified Code(s): E78.5 - Hyperlipidemia, unspecified (4) Hypertension Current Visit: No Status: Chronic Qualifiers: Hypertension type: primary hypertension Qualified Code(s): I10 - Essential (primary) hypertension -Postcholecystectomy gallbladder fossa abscess versus fluid collection -Postop colonic ileus -Left lower lobe pneumonia Lung mass noted on CT, follow pulmonary as outpatient for follow-up work-up Hypokalemia-persistent, on repletion. Plan Leukocytosis continues trending down Continue Merrem for now. No urgent need for drainage of the gall bladder fossa fluid collection now Postop ileus now resolved. presently moving bowels. Has dysuria, we will continue pyridium for burning micturition. s/p post open cholecystectomy for gangrenous cholecystitis, surgeon following. no significant increase in fluid output. controlled glucose level, continue insulin regimen. Mild elevated LFTs with elevated alkaline phosphatase, follow trend. Very low potassium noted again at 2.7 this am. We will start spironolactone 50mg PO daily for potassium protection. we will follow levels closely. Physician Review: Patient Assessed, Agree with Above Assessment and Plan
[2021-08-02] MEDS: ENSURE HIGH PROTEIN 237 ML CAN PO SCH ×2 (09:00→21:01)
[2021-08-02] MEDS: Meropenem 1,000 MG in NA CHLORIDE 0.9% 100 ML IV SCH ×2 (09:39→21:01)
[2021-08-02] MEDS: ENOXAPARIN 40 MG/0.4 ML SQ SCH (09:40)
[2021-08-02] MEDS: POTASS/SODIUM PHOSPHATE 1 PKT POWD.PACK PO SCH ×2 (09:41→21:01)
[2021-08-02] MEDS: LACTOBACILLUS/ACIDOPHILUS TAB PO SCH (09:41)
[2021-08-02] MEDS: AMLODIPINE 10 MG TAB PO SCH (09:41)
[2021-08-02] MEDS: KCL 20 MEQ/100 mL IVPB 20 MEQ/100 ML BAG IV SCH ×4 (09:42→22:58)
--- NOTE | 2021-08-02 10:13 | P.PN ---
Date of Service: 08/02/21 Subjective: Patient is awake and alert. Patient is tolerating regular liquid diet. Patient is more active. Objective: Vital signs are stable he is afebrile. White count is 12.6 and KAIA has put out 80 cc of serosanguineous fluid in the last shift. Abdomen: Soft, non-distended, positive bowel sounds, non-tender. Dressing is clean, dry and intact. Wound is clean and dry Assessment: Status post open cholecystectomy for gangrenous cholecystitis and cholelithiasis in a patient with multiple medical problems as well as a lung mass that needs evaluation. Plan: Patient is clinically improving. Continue IV antibiotics. Physical therapy, DVT prophylaxis, incentive spirometry and await discharge plan. CC:
[2021-08-02] MEDS: SPIRONOLACTONE 25 MG TABLET PO SCH (12:22)
[2021-08-02] MEDS: VANCOMYCIN 1.25 GM in NA CHLORIDE 0.9% 250 ML IVPB SCH (18:00)
[2021-08-02] MEDS: PHENAZOPYRIDINE 100MG TAB PO PRN (21:01)
[2021-08-03] MEDS: MORPHINE 2 MG/ML SYR IV PRN (00:56)
[2021-08-03] MEDS: KCL 20 MEQ/100 mL IVPB 20 MEQ/100 ML BAG IV SCH ×3 (00:56→10:07)
[2021-08-03] MEDS: METOPROLOL TAR 50 MG TAB PO SCH ×2 (05:31→17:06)
[2021-08-03 05:48] LABS: Absolute Lymphocytes (CBC) 1.5 K/uL (0.7-4.9); Hematocrit 29.8 % (39.6-49.0); Lymphocytes % 14.3 % (15.3-44.8); MCV 89.6 fL (80-100); MPV 7.9 fL (7.6-11.3); RBC Red Blood Cell Count 3.33 M/uL (4.33-5.43)
[2021-08-03 06:05] LABS: Albumin 1.9 g/dL (3.4-5.0); Bilirubin Total 0.5 mg/dL (0.2-1.0); Magnesium 2.1 mg/dL (1.8-2.4); Phosphorus 1.5 mg/dL (2.5-4.9); Potassium 3.2 mmol/L (3.5-5.1); Protein, Total 5.5 g/dL (6.4-8.2)
[2021-08-03] MEDS: INSULIN -REGULAR HUMAN 50 UNIT/0.5 ML ML SQ SCH ×4 (07:30→21:27)
[2021-08-03] MEDS: POTASS/SODIUM PHOSPHATE 1 PKT POWD.PACK PO SCH ×7 (09:00→21:28)
[2021-08-03] MEDS: ENSURE HIGH PROTEIN 237 ML CAN PO SCH ×3 (09:00→21:28)
[2021-08-03] MEDS: SPIRONOLACTONE 25 MG TABLET PO SCH (09:05)
[2021-08-03] MEDS: ENOXAPARIN 40 MG/0.4 ML SQ SCH (09:05)
[2021-08-03] MEDS: LACTOBACILLUS/ACIDOPHILUS TAB PO SCH (09:05)
[2021-08-03] MEDS: Meropenem 1,000 MG in NA CHLORIDE 0.9% 100 ML IV SCH (09:06)
[2021-08-03] MEDS: PHENAZOPYRIDINE 100MG TAB PO PRN (09:07)
[2021-08-03] MEDS: AMLODIPINE 10 MG TAB PO SCH (09:07)
--- NOTE | 2021-08-03 10:35 | P.CNS ---
Date of Consult: 08/03/21 Reason for Consult: Proteinuria Requesting Physician: Tomasz Lopez Primary Care Provider: Dr. Denise Chief Complaint: Severe Sepsis, Cholecystitis History of Present Illness: Patient is a 75-year-old male, Malaysian-speaking, with PMH of HTN and IDDM who presented to the ED with his daughter who reports that he has been very weak, had decreased PO intake, and fell today and hit his head. He is complaining of right upper quadrant pain. Head CT negative. Work-up revealed WBC 23, sodium 125, glucose 406, lactic acid 2.1, creatinine 1.45. CT abdomen pelvis showed cholelithiasis with possible cholecystitis. Abdominal ultrasound confirmed acute cholecystitis. General surgery was notified and wishes for patient to be managed medically for now but will see patient. He was given 30ml/kg fluids in the ED along with zosyn and insulin. He was also found to be hypoxemic and requiring supplemental oxygen. Patient is admitted for further evaluation and treatment. 16:11 This 75 yrs old Male presents to ER via EMS with complaints of chest rn pain/upper abd pain. 16:11 The patient or guardian reports chest pain that is located primarily in the anterior rn chest wall. Onset: The symptoms/episode began/occurred last night. The pain does not radiate. Associated signs and symptoms: Pertinent positives: abdominal pain, shortness of breath, Pertinent negatives: cough, diaphoresis, syncope, vomiting. The chest pain is described as sharp. Duration: The patient or guardian reports a single episode. Modifying factors: The symptoms are alleviated by nothing. the symptoms are aggravated by deep breath, movement, palpation of area. Severity of pain: At its worst the pain was moderate in the emergency department the pain is unchanged. The patient has not experienced similar symptoms in the past. The patient has not recently seen a physician. EMS reports that family called 911 for chest and abd pain, family reported fall last night, hit head and think hit chest. Patient does not recall falling. Reports pain to the right of sternum that is worse with palpation and breathing, also upper abd pain. Denies pain or injury to extremities. Denies back pain.. Allergies No Known Drug Allergies Allergy (Verified 07/21/21 22:58) Unknown Home medications list reviewed: Yes Home Medications: Gabapentin [Neurontin*] 400 mg pe PO BID 07/22/21 Glipizide [Glucotrol Xl] 10 mg PO DAILY 07/22/21 Insulin Glargine,Hum.rec.anlog [Lantus] 10 units SQ DAILY 07/22/21 Simvastatin 20 mg PO BEDTIME 07/22/21 Amlodipine [Norvasc*] 5 mg PO DAILY #30 tab 08/03/21 Calcitrol [Rocaltrol*] 0.5 mcg PO DAILY #60 cap 08/03/21 Ensure High Protein 237 ml PO TID #60 can 08/03/21 Metoprolol Tartrate [Lopressor] 100 mg PO BID 6AM 6PM #60 tablet 08/03/21 Spironolactone [Aldactone*] 25 mg PO DAILY #30 tab 08/03/21 Tamsulosin [Flomax*] 0.4 mg PO BID #60 cap 08/03/21 - Past Medical/Surgical History Diabetic: Yes -: HTN -: DM II with polyneuropathy -: Hyperlipidemia -: CKD/ Proteinuria followed by Dr. 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 He has 2 children. He is currently disabled. - Family History Father Medical History: Lung disease Mother Medical History: Stroke, Other (see notes) Notes: Thyroid problems Brother Medical History: Hypertension, Stroke Sister Medical History: Cancer Notes: Brain Cancer - Social History Smoking Status: Unknown if ever smoked Alcohol use: No CD- Drugs: No Caffeine use: No Place of Residence: Home Review of Systems 10-point ROS is otherwise unremarkable General: Weakness Gastrointestinal: Diarrhea Neurological: Weakness Physical Examination Temp Pulse Resp BP Pulse Ox 97.7 F 116 H 12 118/76 96 08/03/21 08:00 08/03/21 09:07 08/03/21 08:00 08/03/21 09:07 08/03/21 08:00 General: In no apparent distress, Cooperative HEENT: Atraumatic Neck: Supple Respiratory: Normal air movement Cardiovascular: No edema, Regular rate/rhythm Gastrointestinal: Soft and benign, Non-distended Musculoskeletal: No clubbing, No contractures Integumentary: No rashes, No cyanosis Neurological: Normal speech Blood work reviewed in the chart. Imagings Data: EXAM DESCRIPTION: CT - Abdomen Pelvis Wo Contrast - 07/28/2021 10:03 am CLINICAL HISTORY: Abdominal pain COMPARISON: July 21, 2021 TECHNIQUE: Computed axial tomography of the abdomen and pelvis was obtained. IV and oral contrast were not requested. All CT scans are performed using dose optimization technique as appropriate and may include automated exposure control or mA/KV adjustment according to patient size. FINDINGS: The evaluation of solid organs, vessels and bowel is limited secondary to the lack of contrast administration. Cholecystectomy. Approximately 5 x 1.5 centimeter fluid collection gallbladder fossa containing small amount of air. Right upper quadrant drain. Small right pleural effusion Mild dilatation of colon probably an ileus. Minimal amount of ascites. There is no evidence of diverticulitis. Mild patchy left lower lobe opacities. Mild right lower lobe atelectasis IMPRESSION: 5 x 1.5 centimeter fluid collection gallbladder fossa may represent an abscess Mild left lower lobe patchy opacities may indicate infection Colonic ileus EXAM DESCRIPTION: RAD - Chest Single View - 07/26/2021 3:40 am TECHNIQUE: Chest radiograph single view. CLINICAL HISTORY: PICC line placement COMPARISON: None . FINDINGS: Heart: Normal contour. Mediastinum/Vessels: Normal contour. Lungs/Pleural space: Asymmetrical ground glass opacity seen in the right lung apex. There is mild atelectasis at the left lung base. No effusion. No pneumothorax. Bony thorax: No acute osseous abnormality. Life support devices: Left PICC line tip is in the superior vena cava. IMPRESSION: Asymmetric ground glass opacity at the right lung apex, may be related to a focal infiltrate and/or overlying pleural disease. Left PICC line tip is in the superior vena cava EXAM DESCRIPTION: US - Abdomen Exam Limited - 07/21/2021 6:44 pm CLINICAL HISTORY: Abdominal pain. COMPARISON: None. FINDINGS: Mild gallbladder wall thickening. Small to moderate amount of gallbladder sludge. Several additional tiny echogenic structures within the gallbladder. The biliary tree is normal caliber. IMPRESSION: Small to moderate gallbladder sludge Tiny echogenic densities within the gallbladder may represent stones which did not shadow secondary to combination of technical factors and their small size or echogenic sludge. Mild gallbladder wall thickening may indicate acute cholecystitis. EXAM DESCRIPTION: CT - Chest Abdomen Pelvis W Cont - 07/21/2021 5:32 pm CLINICAL HISTORY: Chest and abdominal pain status post fall COMPARISON: CT chest 2018 TECHNIQUE: Computed axial tomography of the chest, abdomen and pelvis was obtained. 100 cc Isovue-300 was administered intravenously. Oral contrast was not requested. This limits evaluation of bowel. All CT scans are performed using dose optimization technique as appropriate and may include automated exposure control or mA/KV adjustment according to patient size. FINDINGS: A pleural effusion is not present. A pulmonary contusion is not seen. 5 centimeter right upper lobe opacity mildly enlarged. 2 centimeter adjacent opacity A mediastinal hematoma is not present. The liver, spleen, pancreas, adrenals, kidneys bladder do not demonstrate a traumatic injury Gallbladder distention. The wall appears mildly thickened. Probable gallstones. Moderate stranding within adjacent fat Bladder distention IMPRESSION: No traumatic injury involving the chest, abdomen nor pelvis is seen. Centimeter right upper lobe opacity. Additional 2 centimeter opacity lies adjacent to this. Differential a slow growing neoplasm versus inflammation/low- grade infection. Gallbladder distention. Mild gallbladder wall thickening. Probable cholelithiasis. Stranding within the adjacent fat the. These findings may indicate cholecystitis Conclusions/Impression: Proteinuria in the setting of uncontrolled DM -No NSAIDs Hypokalemia -Replete potassium Hypocalcemia complicated by hypoalbuminemia -Start Calcitriol HypoPO4 -Increase Neutra-phos QID HTN with CKD complicated by tachycardia -Increase Metoprolol 100mg BID -Reduce Amlodipine 5mg daily with holding parameters DM II with CKD, Polyneuropathy and Hyperglycemia -No sugar diet -RISS Severe malnutrition -Increase Ensure TID -IV Albumin prn Anemia in chronic illness -Monitor H&H -Check anemia labs BPH with LUTS -Start Flomax Case reviewed with the daughter Thank you kindly for the referral
[2021-08-03] MEDS: VANCOMYCIN 1.25 GM in NA CHLORIDE 0.9% 250 ML IVPB SCH (11:42)
[2021-08-03 11:48] LABS: C.diff Antigen/Toxin Ag neg : Tox neg (NEG : NEG)
[2021-08-03] MEDS: TAMSULOSIN 0.4 MG SR CAP PO SCH ×2 (13:24→21:28)
[2021-08-03 15:09] LABS: Urine Appearance Cloudy (Clear); Urine Bilirubin Negative (Negative); Urine Blood Trace-intact (Negative); Urine Color Yellow (Yellow); Urine Glucose Trace (Negative); Urine Protein Negative (Negative); Urine Specific Gravity 1.015 (1.005-1.030); Urine Urobilinogen 0.2 mg/dL (0.2-1.0)
[2021-08-03 15:16] LABS: Urine Bacteria <20 /HPF (NONE SEEN); Urine Mucus 1+ /HPF (NONE SEEN); Urine RBC <5 /HPF (NONE SEEN)
--- NOTE | 2021-08-03 15:26 | P.PN ---
Date of Service: 08/03/21 Subjective: Patient is awake and alert. Patient is tolerating regular diet. Objective: Vital signs are stable he is afebrile. White count is normal and KAIA has put out 50 cc of serosanguineous fluid in the last shift. Abdomen: Soft, non-distended, positive bowel sounds, non-tender. Dressing is clean, dry and intact. Wound is clean and dry Assessment: Status post open cholecystectomy for gangrenous cholecystitis and cholelithiasis in a patient with multiple medical problems as well as a lung mass that needs evaluation. Plan: Patient is clinically slowly improving. Consider transitioning to oral antibiotics after 2 weeks of IV antibiotics has finished. Physical therapy, DVT prophylaxis, incentive spirometry and await discharge plan. Family does not want long term at this time. Rehab facilities have either declined or are not in the patient's insurance plan. This makes discharge very challenging. Dr. Lopez is going to speak to the family and I will as well, to see what the best options they are agreeable to based on the limitations of this case. CC:
[2021-08-03 15:31] LABS: Magnesium 2.2 mg/dL (1.8-2.4); Phosphorus 2.3 mg/dL (2.5-4.9); Potassium 3.3 mmol/L (3.5-5.1)
[2021-08-03] MEDS: LOPERAMIDE HCL 2 MG CAPSULE PO PRN (15:33)
[2021-08-03] MEDS ORDERED: POTASSIUM 25 MEQ EFFERV TAB PO ONE (15:43)
[2021-08-03] MEDS: CIPROFLOXACIN HCL 500 MG TAB PO SCH (17:06)
[2021-08-03] MEDS: SMZ./TMP. 800/160 MG TABLET PO SCH (21:28)
--- NOTE | 2021-08-03 23:30 | P.PN ---
Date of Service: 08/03/21 Subjective Subjective: patient having abdominal pain. Owusu catheter placed is greater than 1 L of urine output. Abdominal pain is much better. Patient still not eating that much. Really does not have a lot of strength to participate with physical therapy. Had a long discussion with the family regarding hospice care will continue with longterm facility. I do not believe patient is safe enough to go home without hospice care. Patient is very deconditioned and weak and has still not walk during hospital stay. At this time will have recommended longterm facility and the family is agreeable. Review of Systems 10-point ROS is otherwise unremarkable Physical Examination - Vital Signs Reviewed - Physical Exam General: Alert, In no apparent distress Respiratory: Clear to auscultation bilaterally, Normal air movement Cardiovascular: Regular rate/rhythm, Normal S1 S2 Gastrointestinal: Hypoactive, Soft and benign, Distended, Tenderness; AKIA drain Neurological: No focal deficits Assessment & Plan - Problems (Diagnosis) (1) Acute cholecystitis status post open cholecystectomy Current Visit: Yes Status: Acute (2) Diabetes mellitus Current Visit: No Status: Chronic Qualifiers: Diabetes mellitus type: type 2 Diabetes mellitus retirement insulin use: unspecified retirement insulin use status Diabetes mellitus complication status: with hyperglycemia Qualified Code(s): E11.65 - Type 2 diabetes mellitus with hyperglycemia (3) Hyperlipidemia Current Visit: No Status: Chronic Qualifiers: Hyperlipidemia type: unspecified Qualified Code(s): E78.5 - Hyperlipidemia, unspecified (4) Hypertension Current Visit: No Status: Chronic Qualifiers: Hypertension type: primary hypertension Qualified Code(s): I10 - Essential (primary) hypertension - Plan Continue with plan of care as mentioned below: 1. Continue with antibiotics ; switched to oral 2. Continue with advancing diet and shakes as tolerated 3. Surgery consultation appreciated; status post open cholecystectomy 4. Outpatient pulmonary follow-up for work-up of lung mass 5. Monitor LFTs 6. GI and DVT prophylaxis Discharge Plan: Home Plan to discharge in: Greater than 2 days - Advance Directives Does patient have a Living Will: No Does patient have a Durable POA for Healthcare: No - Code Status/Comfort Care Code Status Assessed: Yes Code Status: Full Code Critical Care: No Time Spent Managing PTS Care (In Minutes): 45
[2021-08-04 03:56] LABS: Absolute Lymphocytes (CBC) 1.1 K/uL (0.7-4.9); Hematocrit 28.4 % (39.6-49.0); Lymphocytes % 12.5 % (15.3-44.8); MCV 89.9 fL (80-100); MPV 7.9 fL (7.6-11.3); RBC Red Blood Cell Count 3.16 M/uL (4.33-5.43)
[2021-08-04 04:38] LABS: Albumin 1.8 g/dL (3.4-5.0); Bilirubin Total 0.4 mg/dL (0.2-1.0); Folic Acid, (Folate) 5.5 ng/mL (3.1-17.5); Magnesium 2.1 mg/dL (1.8-2.4); Phosphorus 2.9 mg/dL (2.5-4.9); Potassium 3.2 mmol/L (3.5-5.1); Protein, Total 5.4 g/dL (6.4-8.2)
[2021-08-04] MEDS: METOPROLOL TAR 50 MG TAB PO SCH ×2 (05:29→16:48)
[2021-08-04] MEDS: INSULIN -REGULAR HUMAN 50 UNIT/0.5 ML ML SQ SCH ×4 (07:30→21:00)
[2021-08-04] MEDS ORDERED: POTASSIUM 25 MEQ EFFERV TAB PO ONE (08:00)
[2021-08-04] MEDS ORDERED: AMLODIPINE 5 MG TAB PO SCH (09:00)
[2021-08-04] MEDS: ENSURE HIGH PROTEIN 237 ML CAN PO SCH ×3 (09:00→21:50)
[2021-08-04] MEDS: POTASS/SODIUM PHOSPHATE 1 PKT POWD.PACK PO SCH ×4 (09:55→21:49)
[2021-08-04] MEDS: SPIRONOLACTONE 25 MG TABLET PO SCH (09:55)
[2021-08-04] MEDS: SMZ./TMP. 800/160 MG TABLET PO SCH ×2 (09:55→21:49)
[2021-08-04] MEDS: CIPROFLOXACIN HCL 500 MG TAB PO SCH ×2 (09:55→16:36)
[2021-08-04] MEDS: LACTOBACILLUS/ACIDOPHILUS TAB PO SCH (09:55)
[2021-08-04] MEDS: TAMSULOSIN 0.4 MG SR CAP PO SCH ×2 (09:56→21:49)
[2021-08-04] MEDS: CALCITROL 0.25 MCG CAP PO SCH (09:56)
[2021-08-04] MEDS: ENOXAPARIN 40 MG/0.4 ML SQ SCH (09:56)
--- NOTE | 2021-08-04 14:53 | P.PN ---
Date of Service: 08/04/21 Subjective: Patient is awake and alert. Patient is tolerating regular diet. Working better with physical therapy Objective: Vital signs are stable he is afebrile. White count is normal and KAIA has put out 20 cc of serosanguineous fluid in the last shift. Abdomen: Soft, non-distended, positive bowel sounds, non-tender. Dressing is clean, dry and intact. Wound is clean and dry Assessment: Status post open cholecystectomy for gangrenous cholecystitis and cholelithiasis in a patient with multiple medical problems as well as a lung mass that needs evaluation. Plan: Patient is clinically slowly improving. Consider transitioning to oral antibiotics after 2 weeks of IV antibiotics has finished. Physical therapy, DVT prophylaxis, incentive spirometry and await discharge plan. Misael-Olivares drain was DC'd. Alie were removed. Awaiting discharge planning. CC:
--- NOTE | 2021-08-04 18:35 | P.PN ---
Date of Service: 08/04/21 Vital Signs Temp Pulse Resp BP Pulse Ox 97.3 F 88 18 117/64 97 08/04/21 16:00 08/04/21 16:00 08/04/21 16:00 08/04/21 16:00 08/04/21 16:00 Medications Acetaminophen (Acetaminophen 325 Mg Tablet) 650 mg PO Q6H PRN PRN Reason: Pain scale 2-4 (Mild) Last Admin: 07/25/21 15:51 Dose: 650 mg Documented by: Calcitriol (Calcitrol 0.25 Mcg Cap) 0.5 mcg PO DAILY [facility] Last Admin: 08/04/21 09:56 Dose: 0.5 mcg Documented by: Ciprofloxacin (Ciprofloxacin Hcl 500 Mg Tab) 500 mg PO BIDWM [facility] Last Admin: 08/04/21 16:36 Dose: 500 mg Documented by: Enoxaparin Sodium (Enoxaparin 40 Mg/0.4 Ml) 40 mg SQ DAILY [facility] Last Admin: 08/04/21 09:56 Dose: 40 mg Documented by: Insulin Human Regular (Insulin -Regular Human 50 Unit/0.5 Ml Ml) 0 unit SQ [facility]; Protocol Last Admin: 08/04/21 16:37 Dose: 5 unit Documented by: Lactobacillus Acidoph/Bulgaricus (Lactobacillus/Acidophilus Tab) 1 tab PO DAILY [facility] Last Admin: 08/04/21 09:55 Dose: 1 tab Documented by: Lactulose (Lactulose 20 Gm/30 Ml Ucup) 10 gm PO BID PRN PRN Reason: CONSTIPATION Loperamide HCl (Loperamide Hcl 2 Mg Capsule) 2 mg PO Q12H PRN PRN Reason: DIARRHEA Last Admin: 08/03/21 15:33 Dose: 2 mg Documented by: Metoprolol Tartrate (Metoprolol Tartrate 5 Mg/5 Ml Inj) 5 mg IV Q6H PRN PRN Reason: SBP > 160 Last Admin: 07/24/21 21:32 Dose: 5 mg Documented by: Metoprolol Tartrate (Metoprolol Tar 50 Mg Tab) 100 mg PO BID 6AM 6PM [facility] Last Admin: 08/04/21 16:48 Dose: Not Given Documented by: Nutritional Formula (Ensure High Protein 237 Ml Can) 237 ml PO TID [facility] Last Admin: 08/04/21 12:34 Dose: 237 ml Documented by: Ondansetron HCl (Ondansetron 4 Mg/2 Ml Vial) 4 mg IV Q6HP PRN PRN Reason: NAUSEA / VOMITING Potassium Phos/Sodium Phos (Potass/Sodium Phosphate 1 Pkt Powd.Pack) 1 pkt PO QID [facility] Last Admin: 08/04/21 16:37 Dose: 1 pkt Documented by: Sodium Chloride (Flush Normal Saline 10 Ml) 10 ml IV BID [facility] Last Admin: 08/04/21 09:56 Dose: 10 ml Documented by: Spironolactone (Spironolactone 25 Mg Tablet) 50 mg PO DAILY [facility] Last Admin: 08/04/21 09:55 Dose: 50 mg Documented by: Tamsulosin HCl (Tamsulosin 0.4 Mg Sr Cap) 0.4 mg PO BID [facility] Throat Lozenges (Chloraseptic Lozenges) 1 olvin PO Q6H PRN PRN Reason: SORE THROAT Last Admin: 07/22/21 17:50 Dose: 1 olvin Documented by: Trimethoprim/Sulfamethoxazole (Smz./Tmp. 800/160 Mg Tablet) 1 tab PO BID [facility] Last Admin: 08/04/21 09:55 Dose: 1 tab Documented by: Microbiology Results 07/21/21 18:15 Blood - Blood Aerobic Blood Culture - Final No growth in 5 days. 07/21/21 18:15 Blood - Blood Anaerobic Blood Culture - Final No growth in 5 days. 07/21/21 17:50 Blood - Blood Aerobic Blood Culture - Final No growth in 5 days. 07/21/21 17:50 Blood - Blood Anaerobic Blood Culture - Final No growth in 5 days. Assessment/ Plan: Nephrology No dyspnea No chest pain Feeling better today No acute events overnight Vitals, medications, blood work and imaging reviewed in the chart. General: In no apparent distress, Cooperative HEENT: Atraumatic Neck: Supple Respiratory: Normal air movement Cardiovascular: No edema, Regular rate/rhythm Gastrointestinal: Soft and benign, Non-distended Musculoskeletal: No clubbing, No contractures Integumentary: No rashes, No cyanosis Neurological: Normal speech Blood work reviewed in the chart. Imagings Data: EXAM DESCRIPTION: CT - Abdomen Pelvis Wo Contrast - 07/28/2021 10:03 am CLINICAL HISTORY: Abdominal pain COMPARISON: July 21, 2021 TECHNIQUE: Computed axial tomography of the abdomen and pelvis was obtained. IV and oral contrast were not requested. All CT scans are performed using dose optimization technique as appropriate and may include automated exposure control or mA/KV adjustment according to patient size. FINDINGS: The evaluation of solid organs, vessels and bowel is limited secondary to the lack of contrast administration. Cholecystectomy. Approximately 5 x 1.5 centimeter fluid collection gallbladder fossa containing small amount of air. Right upper quadrant drain. Small right pleural effusion Mild dilatation of colon probably an ileus. Minimal amount of ascites. There is no evidence of diverticulitis. Mild patchy left lower lobe opacities. Mild right lower lobe atelectasis IMPRESSION: 5 x 1.5 centimeter fluid collection gallbladder fossa may represent an abscess Mild left lower lobe patchy opacities may indicate infection Colonic ileus EXAM DESCRIPTION: RAD - Chest Single View - 07/26/2021 3:40 am TECHNIQUE: Chest radiograph single view. CLINICAL HISTORY: PICC line placement COMPARISON: None . FINDINGS: Heart: Normal contour. Mediastinum/Vessels: Normal contour. Lungs/Pleural space: Asymmetrical ground glass opacity seen in the right lung apex. There is mild atelectasis at the left lung base. No effusion. No pneumothorax. Bony thorax: No acute osseous abnormality. Life support devices: Left PICC line tip is in the superior vena cava. IMPRESSION: Asymmetric ground glass opacity at the right lung apex, may be related to a focal infiltrate and/or overlying pleural disease. Left PICC line tip is in the superior vena cava EXAM DESCRIPTION: US - Abdomen Exam Limited - 07/21/2021 6:44 pm CLINICAL HISTORY: Abdominal pain. COMPARISON: None. FINDINGS: Mild gallbladder wall thickening. Small to moderate amount of gallbladder sludge. Several additional tiny echogenic structures within the gallbladder. The biliary tree is normal caliber. IMPRESSION: Small to moderate gallbladder sludge Tiny echogenic densities within the gallbladder may represent stones which did not shadow secondary to combination of technical factors and their small size or echogenic sludge. Mild gallbladder wall thickening may indicate acute cholecystitis. EXAM DESCRIPTION: CT - Chest Abdomen Pelvis W Cont - 07/21/2021 5:32 pm CLINICAL HISTORY: Chest and abdominal pain status post fall COMPARISON: CT chest 2018 TECHNIQUE: Computed axial tomography of the chest, abdomen and pelvis was obtained. 100 cc Isovue-300 was administered intravenously. Oral contrast was not requested. This limits evaluation of bowel. All CT scans are performed using dose optimization technique as appropriate and may include automated exposure control or mA/KV adjustment according to patient size. FINDINGS: A pleural effusion is not present. A pulmonary contusion is not seen. 5 centimeter right upper lobe opacity mildly enlarged. 2 centimeter adjacent opacity A mediastinal hematoma is not present. The liver, spleen, pancreas, adrenals, kidneys bladder do not demonstrate a traumatic injury Gallbladder distention. The wall appears mildly thickened. Probable gallstones. Moderate stranding within adjacent fat Bladder distention IMPRESSION: No traumatic injury involving the chest, abdomen nor pelvis is seen. Centimeter right upper lobe opacity. Additional 2 centimeter opacity lies adjacent to this. Differential a slow growing neoplasm versus inflammation/low- grade infection. Gallbladder distention. Mild gallbladder wall thickening. Probable cholelithiasis. Stranding within the adjacent fat the. 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 Lopez
[2021-08-04] MEDS: ACETAMINOPHEN 325 MG TABLET PO PRN (21:49)
--- NOTE | 2021-08-04 23:15 | P.PN ---
Date of Service: 08/04/21 Subjective Subjective: patient is doing much better today. He actually walked with physical therapy and took 13 steps. Will leave Owusu catheter in place today. KAIA drain was removed. Surgery is okay with PICC line being removed. Will get a peripheral IV in place. Overall, patient is doing much better and if he continues to improve at this rate he may get to go home but as of now the plan is to go to a halfway facility. Review of Systems 10-point ROS is otherwise unremarkable Physical Examination - Vital Signs Reviewed - Physical Exam General: Alert, In no apparent distress Respiratory: Clear to auscultation bilaterally, Normal air movement Cardiovascular: Regular rate/rhythm, Normal S1 S2 Gastrointestinal: Hypoactive, Soft and benign, Distended, Tenderness; Neurological: No focal deficits Assessment & Plan - Problems (Diagnosis) (1) Acute cholecystitis status post open cholecystectomy Current Visit: Yes Status: Acute (2) Diabetes mellitus Current Visit: No Status: Chronic Qualifiers: Diabetes mellitus type: type 2 Diabetes mellitus senior living insulin use: unspecified senior living insulin use status Diabetes mellitus complication status: with hyperglycemia Qualified Code(s): E11.65 - Type 2 diabetes mellitus with hyperglycemia (3) Urinary retention Current Visit: No Status: Acute (4) Hypertension Current Visit: No Status: Chronic Hypertension type: primary hypertension Qualified Code(s): I10 - Essential (primary) hypertension - Plan Continue with plan of care as mentioned below: 1. Continue with antibiotics ; switched to oral 2. Continue with advancing diet and shakes as tolerated 3. Surgery consultation appreciated; status post open cholecystectomy; KAIA drain removed 4. Outpatient pulmonary follow-up for work-up of lung mass 5. increase with physical therapy. Hopefully patient can go home over the next 48 hours vs. snf facility placement next week 6. GI and DVT prophylaxis
[2021-08-05] MEDS: ACETAMINOPHEN 325 MG TABLET PO PRN ×2 (03:31→20:41)
[2021-08-05 05:00] LABS: Absolute Lymphocytes (CBC) 1.3 K/uL (0.7-4.9); Hematocrit 27.9 % (39.6-49.0); Lymphocytes % 16.3 % (15.3-44.8); MCV 89.9 fL (80-100)
[2021-08-05 05:17] LABS: Bilirubin Total 0.3 mg/dL (0.2-1.0); Phosphorus 3.3 mg/dL (2.5-4.9); Potassium 3.3 mmol/L (3.5-5.1); Protein, Total 5.4 g/dL (6.4-8.2)
[2021-08-05] MEDS: METOPROLOL TAR 50 MG TAB PO SCH ×2 (05:42→16:44)
[2021-08-05] MEDS: INSULIN -REGULAR HUMAN 50 UNIT/0.5 ML ML SQ SCH ×4 (07:30→20:41)
[2021-08-05] MEDS ORDERED: NA CHLORIDE 0.9% 1,000 ML ONE (07:52)
[2021-08-05] MEDS: NA CHLORIDE 0.9% 1,000 ML IV SCH (08:00)
[2021-08-05] MEDS ORDERED: POTASSIUM CL SA 10 MEQ TAB PO ONE (09:00)
[2021-08-05] MEDS ORDERED: CYANOCOBALAMIN 1000MCG/ML INJ IM SCH (09:00)
[2021-08-05] MEDS: ENSURE HIGH PROTEIN 237 ML CAN PO SCH ×3 (09:00→20:43)
[2021-08-05] MEDS: ENOXAPARIN 40 MG/0.4 ML SQ SCH ×2 (09:00→11:24)
[2021-08-05] MEDS: FOLIC ACID 1 MG in NA CHLORIDE 0.9% 50 ML IV SCH (10:09)
[2021-08-05] MEDS: SOD FERRIC GLUC COMPLX/SUCROSE 125 MG in NA CHLORIDE 0.9% 100 ML IV SCH (10:10)
[2021-08-05] MEDS: SMZ./TMP. 800/160 MG TABLET PO SCH ×2 (11:15→20:39)
[2021-08-05] MEDS: POTASS/SODIUM PHOSPHATE 1 PKT POWD.PACK PO SCH ×4 (11:16→20:40)
[2021-08-05] MEDS: SPIRONOLACTONE 25 MG TABLET PO SCH (11:16)
[2021-08-05] MEDS: FE SULF/FA/VIT B COMP & C TAB PO SCH (11:18)
[2021-08-05] MEDS: CIPROFLOXACIN HCL 500 MG TAB PO SCH ×2 (11:18→16:43)
[2021-08-05] MEDS: LACTOBACILLUS/ACIDOPHILUS TAB PO SCH (11:18)
[2021-08-05] MEDS: TAMSULOSIN 0.4 MG SR CAP PO SCH ×2 (11:19→20:40)
[2021-08-05] MEDS: CALCITROL 0.25 MCG CAP PO SCH (11:24)
--- NOTE | 2021-08-05 15:24 | P.PN ---
Date of Service: 08/05/21 Subjective Subjective: Patient continues to improve. Walked 18 steps today. Hopefully, patient can get accepted to rehab. If he has not excepted he will go to a penitentiary facility. Review of Systems 10-point ROS is otherwise unremarkable Physical Examination - Vital Signs Reviewed - Physical Exam General: Alert, In no apparent distress Respiratory: Clear to auscultation bilaterally, Normal air movement Cardiovascular: Regular rate/rhythm, Normal S1 S2 Gastrointestinal: Hypoactive, Soft and benign, Distended, Tenderness; Neurological: No focal deficits Assessment & Plan - Problems (Diagnosis) (1) Acute cholecystitis status post open cholecystectomy Current Visit: Yes Status: Acute (2) Diabetes mellitus Current Visit: No Status: Chronic Qualifiers: Diabetes mellitus type: type 2 Diabetes mellitus long-term insulin use: unspecified director long term care insulin use status Diabetes mellitus complication status: with hyperglycemia Qualified Code(s): E11.65 - Type 2 diabetes mellitus with hyperglycemia (3) Urinary retention Current Visit: No Status: Acute (4) Hypertension Current Visit: No Status: Chronic Hypertension type: primary hypertension Qualified Code(s): I10 - Essential (primary) hypertension - Plan Continue with plan of care as mentioned below: 1. Continue with antibiotics ; switched to oral 2. Continue with advancing diet and shakes as tolerated 3. Surgery consultation appreciated; status post open cholecystectomy; KAIA drain removed 4. Outpatient pulmonary follow-up for work-up of lung mass 5. Increase with physical therapy. Hopefully patient can go home over the next 48 hours vs. penitentiary facility placement next week 6. GI and DVT prophylaxis
[2021-08-06] MEDS: METOPROLOL TAR 50 MG TAB PO SCH ×2 (06:24→17:17)
[2021-08-06] MEDS: NA CHLORIDE 0.9% 1,000 ML IV SCH (06:27)
[2021-08-06] MEDS: FOLIC ACID 1 MG in NA CHLORIDE 0.9% 50 ML IV SCH (10:13)
[2021-08-06] MEDS: INSULIN -REGULAR HUMAN 50 UNIT/0.5 ML ML SQ SCH ×4 (10:16→21:26)
[2021-08-06] MEDS: SMZ./TMP. 800/160 MG TABLET PO SCH ×2 (10:18→21:00)
[2021-08-06] MEDS: FE SULF/FA/VIT B COMP & C TAB PO SCH (10:18)
[2021-08-06] MEDS: POTASS/SODIUM PHOSPHATE 1 PKT POWD.PACK PO SCH ×2 (10:18→13:08)
[2021-08-06] MEDS: LACTOBACILLUS/ACIDOPHILUS TAB PO SCH (10:18)
[2021-08-06] MEDS: CIPROFLOXACIN HCL 500 MG TAB PO SCH ×2 (10:18→17:17)
[2021-08-06] MEDS: ENSURE HIGH PROTEIN 237 ML CAN PO SCH ×3 (10:19→21:00)
[2021-08-06] MEDS: SPIRONOLACTONE 25 MG TABLET PO SCH (10:19)
[2021-08-06] MEDS: TAMSULOSIN 0.4 MG SR CAP PO SCH ×2 (10:19→21:00)
[2021-08-06] MEDS: CALCITROL 0.25 MCG CAP PO SCH (10:19)
[2021-08-06] MEDS: SOD FERRIC GLUC COMPLX/SUCROSE 125 MG in NA CHLORIDE 0.9% 100 ML IV SCH (10:53)
--- NOTE | 2021-08-06 15:17 | P.PN ---
Date of Service: 08/06/21 Vital Signs Temp Pulse Resp BP Pulse Ox 97.1 F 79 24 H 105/62 99 08/06/21 12:00 08/06/21 12:00 08/06/21 12:00 08/06/21 12:00 08/06/21 12:00 Medications Acetaminophen (Acetaminophen 325 Mg Tablet) 650 mg PO Q6H PRN PRN Reason: Pain scale 2-4 (Mild) Last Admin: 08/05/21 20:41 Dose: 650 mg Documented by: Ciprofloxacin (Ciprofloxacin Hcl 500 Mg Tab) 500 mg PO BIDWM [facility] Last Admin: 08/06/21 10:18 Dose: 500 mg Documented by: Cyanocobalamin (Cyanocobalamin 1000mcg/Ml Inj) 1,000 mcg IM Q7D@0900 [facility] Last Admin: 08/05/21 11:15 Dose: 1,000 mcg Documented by: Enoxaparin Sodium (Enoxaparin 40 Mg/0.4 Ml) 40 mg SQ DAILY [facility] Last Admin: 08/05/21 11:24 Dose: 40 mg Documented by: Ferric Sodium Gluconate Complex 125 mg/ Sodium Chloride 110 mls @ 100 mls/hr IV DAILY [facility] Stop: 08/12/21 10:05 Last Admin: 08/06/21 10:53 Dose: 110 mls Documented by: Folic Acid 1 mg/ Sodium (Chloride) 50.2 mls @ 200 mls/hr IV DAILY [facility] Last Admin: 08/06/21 10:13 Dose: 50.2 mls Documented by: Sodium Chloride (Ns 1000 Ml Ivbag) 1,000 mls @ 50 mls/hr IV .Q20H [facility] Last Admin: 08/06/21 06:27 Dose: 1,000 mls Documented by: Insulin Human Regular (Insulin -Regular Human 50 Unit/0.5 Ml Ml) 0 unit SQ ACHS [facility]; Protocol Last Admin: 08/06/21 12:16 Dose: 5 unit Documented by: Lactobacillus Acidoph/Bulgaricus (Lactobacillus/Acidophilus Tab) 1 tab PO DAILY [facility] Last Admin: 08/06/21 10:18 Dose: 1 tab Documented by: Lactulose (Lactulose 20 Gm/30 Ml Ucup) 10 gm PO BID PRN PRN Reason: CONSTIPATION Loperamide HCl (Loperamide Hcl 2 Mg Capsule) 2 mg PO Q12H PRN PRN Reason: DIARRHEA Last Admin: 08/03/21 15:33 Dose: 2 mg Documented by: Metoprolol Tartrate (Metoprolol Tartrate 5 Mg/5 Ml Inj) 5 mg IV Q6H PRN PRN Reason: SBP > 160 Last Admin: 07/24/21 21:32 Dose: 5 mg Documented by: Metoprolol Tartrate (Metoprolol Tar 50 Mg Tab) 100 mg PO BID 6AM 6PM [facility] Last Admin: 08/06/21 06:24 Dose: 100 mg Documented by: Multivitamins/Iron (Fe Sulf/Fa/Vit B Comp & C Tab) 1 tab PO DAILY WITH BREAKFAST [facility] Last Admin: 08/06/21 10:18 Dose: 1 tab Documented by: Nutritional Formula (Ensure High Protein 237 Ml Can) 237 ml PO TID [facility] Last Admin: 08/06/21 14:00 Dose: Not Given Documented by: Ondansetron HCl (Ondansetron 4 Mg/2 Ml Vial) 4 mg IV Q6HP PRN PRN Reason: NAUSEA / VOMITING Sodium Chloride (Flush Normal Saline 10 Ml) 10 ml IV BID [facility] Last Admin: 08/06/21 10:20 Dose: 10 ml Documented by: Tamsulosin HCl (Tamsulosin 0.4 Mg Sr Cap) 0.4 mg PO BID [facility] Last Admin: 08/06/21 10:19 Dose: 0.4 mg Documented by: Throat Lozenges (Chloraseptic Lozenges) 1 olvin PO Q6H PRN PRN Reason: SORE THROAT Last Admin: 07/22/21 17:50 Dose: 1 olvin Documented by: Trimethoprim/Sulfamethoxazole (Smz./Tmp. 800/160 Mg Tablet) 1 tab PO BID [facility] Last Admin: 08/06/21 10:18 Dose: 1 tab Documented by: Microbiology Results 07/21/21 18:15 Blood - Blood Aerobic Blood Culture - Final No growth in 5 days. 07/21/21 18:15 Blood - Blood Anaerobic Blood Culture - Final No growth in 5 days. 07/21/21 17:50 Blood - Blood Aerobic Blood Culture - Final No growth in 5 days. 07/21/21 17:50 Blood - Blood Anaerobic Blood Culture - Final No growth in 5 days. Assessment/ Plan: Nephrology (S) Pt seen sitting in chair, OOB. He denies any complaints, he is moving around a bit more. He is on low rate NS IVF. Appetite still low, he does have some abdominal distention and constipation although last BM per daughter was yesterday. Vitals, medications, blood work and imaging reviewed in the chart. General: In no apparent distress, NAD HEENT: Atraumatic Neck: Supple Respiratory: Normal air movement, no rhonchi Cardiovascular: No edema, Regular rate/rhythm Gastrointestinal: Slightly firm, mild to mod distention, some tenderness over upper abd Musculoskeletal: No clubbing, No contractures Integumentary: No rashes, No cyanosis Neurological: Normal speech, alert, non focal Blood work reviewed in the chart. Conclusions/Impression: Hypokalemia -Repleted, will d/c scheduled K-phos, I do not believe spironolactone is indicated. Pt is also on Bactrim which raises K levels. Hypocalcemia 2nd to hypoalbuminemia, illness -Corrected Ca acceptable, d/c Calcitriol HypoPO4 -Resolved, encourage oral intake Essential HTN per reports -Currently BP is not elevated BPH with LUTS -On Flomax -Do TOV, check PVR 4-6h post nicole removal Ishan David MD, [facility]
[2021-08-07 03:40] LABS: Magnesium 2.1 mg/dL (1.8-2.4); Potassium 3.4 mmol/L (3.5-5.1)
[2021-08-07] MEDS: METOPROLOL TAR 50 MG TAB PO SCH ×2 (05:45→17:08)
[2021-08-07] MEDS ORDERED: POTASSIUM CL SA 10 MEQ TAB PO ONE (06:00)
[2021-08-07] MEDS: INSULIN -REGULAR HUMAN 50 UNIT/0.5 ML ML SQ SCH ×4 (08:00→21:00)
[2021-08-07] MEDS: LACTOBACILLUS/ACIDOPHILUS TAB PO SCH (08:02)
[2021-08-07] MEDS: CIPROFLOXACIN HCL 500 MG TAB PO SCH ×2 (08:02→16:28)
[2021-08-07] MEDS: SMZ./TMP. 800/160 MG TABLET PO SCH ×2 (08:02→21:20)
[2021-08-07] MEDS: FE SULF/FA/VIT B COMP & C TAB PO SCH (08:02)
[2021-08-07] MEDS: TAMSULOSIN 0.4 MG SR CAP PO SCH ×2 (08:02→21:20)
[2021-08-07] MEDS: ENOXAPARIN 40 MG/0.4 ML SQ SCH (08:03)
[2021-08-07] MEDS: ENSURE HIGH PROTEIN 237 ML CAN PO SCH ×3 (08:03→21:00)
[2021-08-07] MEDS: SOD FERRIC GLUC COMPLX/SUCROSE 125 MG in NA CHLORIDE 0.9% 100 ML IV SCH (08:53)
[2021-08-07] MEDS: FOLIC ACID 1 MG in NA CHLORIDE 0.9% 50 ML IV SCH (09:26)
--- NOTE | 2021-08-07 11:34 | P.PN ---
Date of Service: 08/07/21 Vital Signs Temp Pulse Resp BP Pulse Ox 98.0 F 88 16 123/57 L 97 08/07/21 08:00 08/07/21 08:00 08/07/21 08:00 08/07/21 08:00 08/07/21 08:00 Medications Acetaminophen (Acetaminophen 325 Mg Tablet) 650 mg PO Q6H PRN PRN Reason: Pain scale 2-4 (Mild) Last Admin: 08/05/21 20:41 Dose: 650 mg Documented by: Ciprofloxacin (Ciprofloxacin Hcl 500 Mg Tab) 500 mg PO BIDWM [facility] Last Admin: 08/07/21 08:02 Dose: 500 mg Documented by: Cyanocobalamin (Cyanocobalamin 1000mcg/Ml Inj) 1,000 mcg IM Q7D@0900 [facility] Last Admin: 08/05/21 11:15 Dose: 1,000 mcg Documented by: Enoxaparin Sodium (Enoxaparin 40 Mg/0.4 Ml) 40 mg SQ DAILY [facility] Last Admin: 08/07/21 08:03 Dose: 40 mg Documented by: Ferric Sodium Gluconate Complex 125 mg/ Sodium Chloride 110 mls @ 100 mls/hr IV DAILY [facility] Stop: 08/12/21 10:05 Last Admin: 08/07/21 08:53 Dose: 110 mls Documented by: Folic Acid 1 mg/ Sodium (Chloride) 50.2 mls @ 200 mls/hr IV DAILY [facility] Last Admin: 08/07/21 09:26 Dose: 50.2 mls Documented by: Insulin Human Regular (Insulin -Regular Human 50 Unit/0.5 Ml Ml) 0 unit SQ [facility]; Protocol Last Admin: 08/07/21 08:00 Dose: 3 unit Documented by: Lactobacillus Acidoph/Bulgaricus (Lactobacillus/Acidophilus Tab) 1 tab PO DAILY [facility] Last Admin: 08/07/21 08:02 Dose: 1 tab Documented by: Lactulose (Lactulose 20 Gm/30 Ml Ucup) 10 gm PO BID PRN PRN Reason: CONSTIPATION Loperamide HCl (Loperamide Hcl 2 Mg Capsule) 2 mg PO Q12H PRN PRN Reason: DIARRHEA Last Admin: 08/03/21 15:33 Dose: 2 mg Documented by: Metoprolol Tartrate (Metoprolol Tartrate 5 Mg/5 Ml Inj) 5 mg IV Q6H PRN PRN Reason: SBP > 160 Last Admin: 07/24/21 21:32 Dose: 5 mg Documented by: Metoprolol Tartrate (Metoprolol Tar 50 Mg Tab) 100 mg PO BID 6AM 6PM [facility] Last Admin: 08/07/21 05:45 Dose: Not Given Documented by: Multivitamins/Iron (Fe Sulf/Fa/Vit B Comp & C Tab) 1 tab PO DAILY WITH BREAKFAST [facility] Last Admin: 08/07/21 08:02 Dose: 1 tab Documented by: Nutritional Formula (Ensure High Protein 237 Ml Can) 237 ml PO TID [facility] Last Admin: 08/07/21 08:03 Dose: 237 ml Documented by: Ondansetron HCl (Ondansetron 4 Mg/2 Ml Vial) 4 mg IV Q6HP PRN PRN Reason: NAUSEA / VOMITING Potassium Chloride (Potassium Cl Sa 10 Meq Tab) 20 meq PO DAILY [facility] Sodium Chloride (Flush Normal Saline 10 Ml) 10 ml IV BID [facility] Last Admin: 08/07/21 08:03 Dose: 10 ml Documented by: Tamsulosin HCl (Tamsulosin 0.4 Mg Sr Cap) 0.4 mg PO BID [facility] Last Admin: 08/07/21 08:02 Dose: 0.4 mg Documented by: Throat Lozenges (Chloraseptic Lozenges) 1 olvin PO Q6H PRN PRN Reason: SORE THROAT Last Admin: 07/22/21 17:50 Dose: 1 olvin Documented by: Trimethoprim/Sulfamethoxazole (Smz./Tmp. 800/160 Mg Tablet) 1 tab PO BID [facility] Last Admin: 08/07/21 08:02 Dose: 1 tab Documented by: Microbiology Results 07/21/21 18:15 Blood - Blood Aerobic Blood Culture - Final No growth in 5 days. 07/21/21 18:15 Blood - Blood Anaerobic Blood Culture - Final No growth in 5 days. 07/21/21 17:50 Blood - Blood Aerobic Blood Culture - Final No growth in 5 days. 07/21/21 17:50 Blood - Blood Anaerobic Blood Culture - Final No growth in 5 days. Assessment/ Plan: Nephrology (S) Nicole removed yesterday afternoon per RN and he did have documented 900 cc UOP overnight and RN reports pt has voided a few times this AM but pt reports with daughter translating that he has some lower abd/suprapubic pressure and feels he is not quite able to empty his bladder. Vitals, medications, blood work and imaging reviewed in the chart. General: In no apparent distress, NAD HEENT: Atraumatic Neck: Supple Respiratory: Normal air movement, no rhonchi Cardiovascular: No edema, Regular rate/rhythm Gastrointestinal: Soft, mild distention, some tenderness over Lt upper abd, s urgical scar c/d, nicole removed Musculoskeletal: No clubbing, No contractures Integumentary: No rashes, No cyanosis Neurological: Normal speech, alert, non focal Blood work reviewed in the chart. Conclusions/Impression: Hypokalemia -Repleting, did d/c scheduled K-phos -will replace with PO KCL. I do not believe spironolactone is indicated. Pt is also on Bactrim which raises K levels. Hypocalcemia 2nd to hypoalbuminemia, illness -Corrected Ca acceptable, d/c'ed Calcitriol HypoPO4 -Resolved, encourage oral intake Essential HTN per reports -Currently BP is not elevated BPH with LUTS. Retention of urine unspecified in the setting of recent surgery, pain meds, constipation, other -On Flomax -Repeated TOV, pt has voided on his own since but random bladder scan this AM > 150 < 250. Will repeat in a few hours and monitor closely. Ishan David MD, [facility]
[2021-08-07] MEDS: POTASSIUM CL SA 10 MEQ TAB PO SCH (11:42)
[2021-08-07] MEDS: ACETAMINOPHEN 325 MG TABLET PO PRN (16:27)
[2021-08-08] MEDS: METOPROLOL TAR 50 MG TAB PO SCH ×2 (05:25→17:04)
[2021-08-08 07:22] LABS: Potassium 3.5 mmol/L (3.5-5.1)
--- NOTE | 2021-08-08 07:27 | P.PN ---
Date of Service: 08/06/21 Subjective Subjective: Patient is continuing to improve. Family is undecided about going to a prison facility. Patient is ambulating much better. Anticipate discharge with home and home health over the next 24 to 48 hours. Patient with urinary retention and nephrology will plan voiding trial and discontinuing Owusu catheter in a.m. Review of Systems 10-point ROS is otherwise unremarkable Physical Examination - Vital Signs Reviewed - Physical Exam General: Alert, In no apparent distress Respiratory: Clear to auscultation bilaterally, Normal air movement Cardiovascular: Regular rate/rhythm, Normal S1 S2 Gastrointestinal: Hypoactive, Soft and benign, Distended, Tenderness; Neurological: No focal deficits Assessment & Plan - Problems (Diagnosis) (1) Acute cholecystitis status post open cholecystectomy Current Visit: Yes Status: Acute (2) Diabetes mellitus Current Visit: No Status: Chronic Qualifiers: Diabetes mellitus type: type 2 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 Continue with antibiotics ; switched to oral 2. Continue with advancing diet and shakes as tolerated 3. Surgery consultation appreciated; status post open cholecystectomy; KAIA drain removed yesterday 4. Outpatient pulmonary follow-up for work-up of lung mass 5. Increase with physical therapy. Walking up to 40 steps at this time. Hopefully patient can go home over the next 48 hours vs. prison facility placement next week 6. GI and DVT prophylaxis
--- NOTE | 2021-08-08 07:28 | P.PN ---
Date of Service: 08/07/21 Subjective Subjective: Patient was having voiding trial today. Not urinating. Abdomen feels more distended. We will replace Owusu catheter with a leg bag. Continue to work with physical therapy. This is improved. Spoke with general surgery and anticipate discharge in the a.m. Review of Systems 10-point ROS is otherwise unremarkable Physical Examination - Vital Signs Reviewed - Physical Exam General: Alert, In no apparent distress Respiratory: Clear to auscultation bilaterally, Normal air movement Cardiovascular: Regular rate/rhythm, Normal S1 S2 Gastrointestinal: Hypoactive, Soft and benign, Distended, nontender Neurological: No focal deficits Assessment & Plan - Problems (Diagnosis) (1) Acute cholecystitis status post open cholecystectomy Current Visit: Yes Status: Acute (2) Diabetes mellitus Current Visit: No Status: Chronic Qualifiers: Diabetes mellitus type: type 2 Diabetes mellitus intermediate project manager insulin use: unspecified intermediate project manager insulin use status Diabetes mellitus complication status: with hyperglycemia Qualified Code(s): E11.65 - Type 2 diabetes mellitus with hyperglycemia (3) Urinary retention Current Visit: No Status: Acute (4) Hypertension Current Visit: No Status: Chronic Hypertension type: primary hypertension Qualified Code(s): I10 - Essential (primary) hypertension - Plan Continue with plan of care as mentioned below: 1. Continue oral antibiotics for 48 more hours 2. Diet improving; continue with increasing caloric intake and meeting his requirements with supplements 3. Outpatient general surgery follow-up in 1 week 4. Outpatient pulmonary follow-up for work-up of lung mass 5. Continue outpatient home health. Patient walking up to 40 steps at this time 6. Voiding trial per nephrology and patient did not pass. Plan to replace Owusu catheter. 7. GI and DVT prophylaxis
[2021-08-08] MEDS: SMZ./TMP. 800/160 MG TABLET PO SCH ×2 (08:50→20:57)
[2021-08-08] MEDS: FE SULF/FA/VIT B COMP & C TAB PO SCH (08:50)
[2021-08-08] MEDS: INSULIN -REGULAR HUMAN 50 UNIT/0.5 ML ML SQ SCH ×4 (08:50→20:57)
[2021-08-08] MEDS: ENOXAPARIN 40 MG/0.4 ML SQ SCH (08:50)
[2021-08-08] MEDS: CIPROFLOXACIN HCL 500 MG TAB PO SCH ×2 (08:51→17:04)
[2021-08-08] MEDS: TAMSULOSIN 0.4 MG SR CAP PO SCH ×2 (08:51→20:56)
[2021-08-08] MEDS: LOPERAMIDE HCL 2 MG CAPSULE PO PRN (08:51)
[2021-08-08] MEDS: LACTOBACILLUS/ACIDOPHILUS TAB PO SCH (08:51)
[2021-08-08] MEDS: SOD FERRIC GLUC COMPLX/SUCROSE 125 MG in NA CHLORIDE 0.9% 100 ML IV SCH (08:51)
[2021-08-08] MEDS: FOLIC ACID 1 MG in NA CHLORIDE 0.9% 50 ML IV SCH (08:51)
[2021-08-08] MEDS: POTASSIUM CL SA 10 MEQ TAB PO SCH (08:51)
[2021-08-08] MEDS: ENSURE HIGH PROTEIN 237 ML CAN PO SCH ×3 (08:51→20:57)
--- NOTE | 2021-08-08 13:50 | P.PN ---
Date of Service: 08/08/21 Subjective Subjective: PATIENT IS NOT ACTIVE WAS TODAY. FAMILY IS VERY UPSET THAT HE IS BEING DISCHARGED. HE STATES THAT NOTHING HAS BEEN SET UP. THERE IS NO WHEELCHAIR, NO BEDSIDE COMMODE, AND THEY HAVE NOT GOT A WALKER FOR THE PATIENT. THE WALKER WILL NOT BE COVERED BY INSURANCE. THEY WILL HAPPEN GET THIS WE ARE GETTING A WHEELCHAIR. PATIENT ALSO WILL GET HOME HEALTH TELL SOMETIMES NEXT WEEK- POSSIBLY TUESDAY. PLAN IS TO DISCHARGE HOME IF NOT TODAY THEN TOMORROW AND IF PATIENT IS AMBULATING WELL THEN HE SHOULD BE SAFE FOR DISCHARGE IF FAMILY FEELS COMFORTABLE Review of Systems 10-point ROS is otherwise unremarkable Physical Examination - Vital Signs Reviewed - Physical Exam General: Alert, In no apparent distress Respiratory: Clear to auscultation bilaterally, Normal air movement Cardiovascular: Regular rate/rhythm, Normal S1 S2 Gastrointestinal: Hypoactive, Soft and benign, Distended, nontender Neurological: No focal deficits Assessment & Plan - Problems (Diagnosis) (1) Acute cholecystitis status post open cholecystectomy Current Visit: Yes Status: Acute (2) Diabetes mellitus Current Visit: No Status: Chronic Qualifiers: Diabetes mellitus type: type 2 Diabetes mellitus exterminator insulin use: unspecified exterminator insulin use status Diabetes mellitus complication status: with hyperglycemia Qualified Code(s): E11.65 - Type 2 diabetes mellitus with hyperglycemia (3) Urinary retention Current Visit: No Status: Acute (4) Hypertension Current Visit: No Status: Chronic Hypertension type: primary hypertension Qualified Code(s): I10 - Essential (primary) hypertension - Plan Continue with plan of care as mentioned below: 1. Continue oral antibiotics for 48 more hours 2. Diet improving; continue with increasing caloric intake and meeting his requirements with supplements 3. Outpatient general surgery follow-up in 1 week 4. Outpatient pulmonary follow-up for work-up of lung mass 5. Continue outpatient home health. Patient walking up to 40 steps at this time 6. Voiding trial per nephrology and patient did not pass. Plan to replace Owusu catheter. 7. GI and DVT prophylaxis
[2021-08-08] MEDS: ACETAMINOPHEN 325 MG TABLET PO PRN (17:03)
[2021-08-09] MEDS: METOPROLOL TAR 50 MG TAB PO SCH ×2 (05:26→17:23)
[2021-08-09 06:46] LABS: C-Reactive Protein 44.2 mg/L (<3.00); Magnesium 2.1 mg/dL (1.8-2.4); Potassium 3.3 mmol/L (3.5-5.1)
[2021-08-09] MEDS: ENOXAPARIN 40 MG/0.4 ML SQ SCH (07:42)
[2021-08-09] MEDS: TAMSULOSIN 0.4 MG SR CAP PO SCH ×2 (07:43→21:02)
[2021-08-09] MEDS: LACTOBACILLUS/ACIDOPHILUS TAB PO SCH ×2 (07:43→07:44)
[2021-08-09] MEDS: POTASSIUM CL SA 10 MEQ TAB PO SCH (07:43)
[2021-08-09] MEDS: CIPROFLOXACIN HCL 500 MG TAB PO SCH ×2 (07:44→17:22)
[2021-08-09] MEDS: ENSURE HIGH PROTEIN 237 ML CAN PO SCH ×3 (07:44→21:00)
[2021-08-09] MEDS: FE SULF/FA/VIT B COMP & C TAB PO SCH (07:44)
--- NOTE | 2021-08-09 08:14 | RAD REPORT ---
EXAM DESCRIPTION: RAD - Chest Single View - 08/09/2021 7:02 am CLINICAL HISTORY: pneumonia COMPARISON: July 26 TECHNIQUE: AP portable chest image was obtained 08/09/2021 7:02 am . FINDINGS: Lung volumes are low and exam uses and under penetrated technique. Increased lung parenchymal opacification is present in the right apex. This could be a residual or re current pneumonia compared to July 26. The presence of a mass in the right apex is doubtful but not e ntirely excluded. This needs continued surveillance or possibly CT chest imaging. Overall interstitial opacification is increased. Cardiac silhouette is increased over prior imaging. Much of this is due to a more shallow inspiratory effort and under penetrated film technique. Compone nt from interstitial edema or infiltrate could be considered as well. Patient has baseline fibrotic c hange. No measurable pleural effusion and no pneumothorax. No acute bony abnormality seen. No acute aortic findings suspected. IMPRESSION: Residual or recurrent right apex opacification, progressive from July 26. Pneumonia woul d be most typical. Mass etiology for the right apex opacification is lower in likelihood but not excluded. Continued jovany st films surveillance is needed to assure clearing. CT chest imaging can be utilized as warranted. Increased interstitial opacification believed be a combination of edema or infiltrate superimposed on fibrotic lung change.
[2021-08-09] MEDS: INSULIN -REGULAR HUMAN 50 UNIT/0.5 ML ML SQ SCH ×4 (08:30→21:00)
[2021-08-09] MEDS: FOLIC ACID 1 MG in NA CHLORIDE 0.9% 50 ML IV SCH (08:46)
[2021-08-09] MEDS: SOD FERRIC GLUC COMPLX/SUCROSE 125 MG in NA CHLORIDE 0.9% 100 ML IV SCH (08:49)
--- NOTE | 2021-08-09 15:02 | P.PN ---
Date of Service: 08/09/21 Subjective Subjective: Patient is a 75-year-old gentleman who came to the and had an open elizabeth cystectomy. Patient was very weak and frail after his surgery. However, he was able to start recovering. He did have some urinary retention and even after doing a voiding trial that he failed we decided to keep Owusu catheter in with a leg bag for him to follow-up with urology. He is on max dose of Flomax. He is doing well with physical therapy. He is walking a lap. We have had long discussion with family and we will try to get patient into [facility] but patient was denied. An appeal was made and I am not really sure the outcome but I believe that was denied as well. Family has refused to have patient placed in a chcf. She is ambulating effectively and we are arranging for a wheelchair, bedside commode, and the family is supposed to get a walker. Today however they are wanting to go to a chcf. We discussed with counseling case manager. Patient is doing well and he walked a lap around the nurses station with physical therapy. I am not even sure at this point if he will qualify for long term facility placement. He is doing much better clinically and he should be stable for discharge home once family is more agreeable. Review of Systems 10-point ROS is otherwise unremarkable Physical Examination - Vital Signs Reviewed - Physical Exam General: Alert, In no apparent distress Respiratory: Clear to auscultation bilaterally, Normal air movement Cardiovascular: Regular rate/rhythm, Normal S1 S2 Gastrointestinal: Hypoactive, Soft and benign, Distended, nontender Neurological: No focal deficits Assessment & Plan - Problems (Diagnosis) (1) Acute cholecystitis status post open cholecystectomy Current Visit: Yes Status: Acute (2) Diabetes mellitus Current Visit: No Status: Chronic Qualifiers: Diabetes mellitus type: type 2 Diabetes mellitus drag seiner insulin use: unspecified skilled nursing insulin use status Diabetes mellitus complication status: with hyperglycemia Qualified Code(s): E11.65 - Type 2 diabetes mellitus with hyperglycemia (3) Urinary retention Current Visit: No Status: Acute (4) Hypertension Current Visit: No Status: Chronic Hypertension type: primary hypertension Qualified Code(s): I10 - Essential (primary) hypertension - Plan Continue with plan of care as mentioned below: 1. Can discontinue antibiotic therapy 2. Diet improving; continue with increasing caloric intake and meeting his requirements with supplements 3. Outpatient general surgery follow-up in 1 week 4. Outpatient pulmonary follow-up for work-up of lung mass 5. Continue outpatient home health-this will start on because of insurance. Patient walked a lap around the nursing station 6. Voiding trial per nephrology and patient did not pass. Replaced Owusu catheter. 7. GI and DVT prophylaxis
--- NOTE | 2021-08-09 17:33 | PN ---
Date of Progress Note: 08/09/2021 Subjective: The patient is seen at the bedside. The patient did require Owusu catheter to be reinse rted for urinary obstruction and retention. Otherwise, no acute complaints at this time. His son-in -law is at the bedside. Review of Systems: Negative except for mentioned above. Physical Examination: Vital Signs: Blood pressure 113/61, pulse 74, afebrile. Input and output 820 in and 880 out. General: No acute distress. Heart: Regular rate and rhythm. No murmurs, rubs, gallops. Lungs: Grossly clear. Abdomen: Soft, nontender, nondistended. Extremities: No significant edema. Laboratory Data: Serum chemistry; sodium 136, potassium 3.3, chloride 108, CO2 23, BUN and creatinin e 11/0.8, glucose 173, calcium 8.1. Last CBC was drawn on 08/04. Current Medications: Reviewed. Impression: 1.Acute kidney injury, which has resolved. 2.Persistent hypokalemia, likely secondary to poor p.o. intake as well as intermittent urinary and s tool losses throughout the admission. 3.Hypophosphatemia, which has improved. 4.Hypertension, stable. 5.BPH with lower urinary tract symptoms. Plan: The patient's potassium has been increased to 40 mEq daily. Encourage p.o. intake. The patie nt does have Owusu catheter in place and that will remain in place unless the patient passes voiding trial. I explained to son-in-law the importance of the patient to have Urology followup as well as [facility] follow[facility] in the outpatient setting. We do request the patient be seen within the next 2 weeks by Nephrology and followup service in clini c to assess electrolyte stability. Case discussed with Dr. Lopez and family at the bedside. /QUENTIN Voice ID: [id number] Report ID: [id number]
[2021-08-10 05:56] LABS: Absolute Lymphocytes (CBC) 2.3 K/uL (0.7-4.9); Hematocrit 34.1 % (39.6-49.0); MCV 92.2 fL (80-100); MPV 7.7 fL (7.6-11.3)
[2021-08-10] MEDS: METOPROLOL TAR 50 MG TAB PO SCH (06:00)
[2021-08-10 06:09] LABS: Albumin 2.7 g/dL (3.4-5.0); Bilirubin Total 0.3 mg/dL (0.2-1.0); Magnesium 2.2 mg/dL (1.8-2.4); Phosphorus 2.1 mg/dL (2.5-4.9); Potassium 3.4 mmol/L (3.5-5.1); Protein, Total 7.1 g/dL (6.4-8.2)
[2021-08-10] MEDS: ENOXAPARIN 40 MG/0.4 ML SQ SCH (08:27)
[2021-08-10] MEDS: INSULIN -REGULAR HUMAN 50 UNIT/0.5 ML ML SQ SCH ×2 (08:27→11:42)
[2021-08-10] MEDS: LACTOBACILLUS/ACIDOPHILUS TAB PO SCH ×2 (08:28→09:00)
[2021-08-10] MEDS: ENSURE HIGH PROTEIN 237 ML CAN PO SCH ×2 (08:28→13:53)
[2021-08-10] MEDS: FE SULF/FA/VIT B COMP & C TAB PO SCH (08:28)
[2021-08-10] MEDS: CIPROFLOXACIN HCL 500 MG TAB PO SCH (08:29)
[2021-08-10] MEDS: TAMSULOSIN 0.4 MG SR CAP PO SCH (08:29)
[2021-08-10] MEDS ORDERED: POTASSIUM CL SA 10 MEQ TAB PO SCH (09:00)
[2021-08-10] MEDS ORDERED: FOLIC ACID 1 MG TABLET PO SCH (09:00)
[2021-08-10] MEDS: SOD FERRIC GLUC COMPLX/SUCROSE 125 MG in NA CHLORIDE 0.9% 100 ML IV SCH (09:07)
[2021-08-10 09:31] VITALS: O2SAT 96
[2021-08-10 11:59] VITALS: TEMP 97.4
--- NOTE | 2021-08-10 12:31 | P.DS ---
Admission Date: 07/21/21 Discharge Date: 08/10/21 Primary Care Provider: Dr. Denise Disposition: DC HOME/HOME HEALTH CARE Discharge Condition: GOOD Reason for Admission: Severe Sepsis, Cholecystitis Consultations: 1. General Surgery 2. Pulmonary Medicine 3. Nephrology Procedures: 07/23/2021 - Laparoscopic -> Open Cholecystectomy with KAIA drain placement - Problems (1) Pneumonia Current Visit: Yes Status: Resolved Qualifiers: Laterality: left Lung location: lower lobe of lung (2) Ileus, postoperative Current Visit: Yes Status: Resolved (3) TRELL (acute kidney injury) Current Visit: Yes Status: Resolved (4) Acute cholecystitis Current Visit: Yes Status: Resolved (5) Hyponatremia Current Visit: Yes Status: Resolved (6) Severe sepsis Current Visit: Yes Status: Resolved (7) Type 2 diabetes mellitus with hyperglycemia Current Visit: No Status: Chronic Qualifiers: Diabetes mellitus tank terminal gauger insulin use: with tank terminal gauger use Qualified Code(s): E11.65 - Type 2 diabetes mellitus with hyperglycemia; Z79.4 - group home (current) use of insulin (8) Hyperlipidemia Current Visit: No Status: Chronic Qualifiers: Hyperlipidemia type: unspecified Qualified Code(s): E78.5 - Hyperlipidemia, unspecified (9) Hypertension Current Visit: No Status: Chronic Qualifiers: Hypertension type: primary hypertension Qualified Code(s): I10 - Essential (primary) hypertension Hospital Course: Mr. Gilberto Rangel is a pleasant 75-year-old male with a past medical history significant for type 2 diabetes mellitus, hypertension, and dyslipidemia who was admitted to the [facility] on 07/21/2021 for severe sepsis secondary to acute cholecystitis. Upon admission, General Surgery was consulted and initially tried to manage his symptoms medically (IV fluids and IV antibiotics). Despite medical management, his symptoms continue to worsen and he underwent open cholecystectomy on 07/23/2021. During the procedure, the body and fundus of the gallbladder were found to be ischemic and gangrenous. A KAIA drain was placed and eventually removed on 08/04/2021. His post-operative course was complicated by an ileus, left lower lobe pneumonia, and urinary retention. There was also concern for post-cholecystectomy intra-abdominal fluid collections, but these were managed non-surgically. Initially, following surgery, he was very weak and had limited mobility. With the assistance of physical therapy, he gradually progressed and improved clinically daily. Per nursing staff, he walked 250 steps yesterday, and both he and his family are comfortable with discharge today. Of note, he was incidentally found to have a 5 cm right upper lobe opacity as well as an adjacent 2 cm opacity. Pulmonary Medicine was consulted and he will follow-up with Dr. Puckett as an outpatient for further evaluation. On 08/10/2021, he was seen on rounds and deemed medically stable for discharge. He was discharged with instructions to schedule follow-up appointments with his primary care provider, urology, surgery, and pulmonary medicine. Case management will assist in arranging home health and a follow-up urology appointment for his indwelling Owusu catheter. He and his family members were given the opportunity to ask questions and reported no further questions. Furthermore, all questions were answered to the best of my ability. Today, I personally spent 40 minutes with Mr. Rangel, of which greater than 50% of the time was spent in patient education, counseling, and coordination of care as described above. Vital Signs/Physical Exam: Temp Pulse Resp BP Pulse Ox 97.4 F 114 H 16 106/62 95 08/10/21 11:58 08/10/21 11:58 08/10/21 11:58 08/10/21 11:58 08/10/21 11:58 General: Alert, In no apparent distress, Oriented x3 HEENT: Atraumatic Respiratory: Clear to auscultation bilaterally, Normal air movement Cardiovascular: No edema, Normal pulses, Regular rate/rhythm, Normal S1 S2, No gallops, No rubs, No murmurs Gastrointestinal: Normal bowel sounds, Soft and benign, No tenderness, No rebound, No guarding Musculoskeletal: No clubbing, No swelling Integumentary: No rashes Neurological: Normal speech, Normal tone, Normal affect, Other (Ambulates with assistance of walker) Urinary: Owusu catheter Laboratory Data at Discharge: WBC 8.0 K/uL (4.3-10.9) 08/10/21 05:40 Hgb 11.5 g/dL (13.6-17.9) L 08/10/21 05:40 Hct 34.1 % (39.6-49.0) L D 08/10/21 05:40 Plt Count 368 K/uL (152-406) D 08/10/21 05:40 PT 12.5 SECONDS (9.5-12.5) 07/21/21 16:31 INR 1.13 07/21/21 16:31 APTT 29.3 SECONDS (24.3-36.9) 07/21/21 16:31 Sodium 136 mmol/L (136-145) 08/10/21 05:40 Potassium 3.4 mmol/L (3.5-5.1) L 08/10/21 05:40 BUN 13 mg/dL (7-18) 08/10/21 05:40 Creatinine 0.94 mg/dL (0.55-1.3) 08/10/21 05:40 Glucose 180 mg/dL (74-106) H 08/10/21 05:40 Uric Acid 2.0 mg/dL (3.5-7.2) L D 08/04/21 03:40 Phosphorus 2.1 mg/dL (2.5-4.9) L 08/10/21 05:40 Magnesium 2.2 mg/dL (1.8-2.4) 08/10/21 05:40 Total Bilirubin 0.3 mg/dL (0.2-1.0) 08/10/21 05:40 AST 20 U/L (15-37) 08/10/21 05:40 ALT 31 U/L (12-78) 08/10/21 05:40 Alkaline Phosphatase 123 U/L (45-117) H 08/10/21 05:40 Triglycerides 152 mg/dL (<150) H 07/22/21 03:57 Cholesterol 113 mg/dL (<200) 07/22/21 03:57 HDL Cholesterol 17 mg/dL (40-60) L 07/22/21 03:57 Cholesterol/HDL Ratio 6.65 07/22/21 03:57 Lipase 21 U/L (73-393) L 07/23/21 06:08 Home Medications: Gabapentin [Neurontin*] 400 mg pe PO BID 07/22/21 Glipizide [Glucotrol Xl] 10 mg PO DAILY 07/22/21 Insulin Glargine,Hum.rec.anlog [Lantus] 10 units SQ DAILY 07/22/21 Simvastatin 20 mg PO BEDTIME 07/22/21 Amlodipine [Norvasc*] 5 mg PO DAILY #30 tab 08/03/21 Calcitrol [Rocaltrol*] 0.5 mcg PO DAILY #60 cap 08/03/21 Ensure High Protein 237 ml PO TID #60 can 08/03/21 Metoprolol Tartrate [Lopressor] 100 mg PO BID 6AM 6PM #60 tablet 08/03/21 Spironolactone [Aldactone*] 25 mg PO DAILY #30 tab 08/03/21 Tamsulosin HCl 0.4 mg PO BID 08/04/21 Smz./Tmp. [Bactrim Ds 800 MG/160 MG*] 1 tab PO DAILY #5 tab 08/08/21 New Medications: Spironolactone [Aldactone*] 25 mg PO DAILY #30 tab Smz./Tmp. [Bactrim Ds 800 MG/160 MG*] 1 tab PO DAILY #5 tab Ensure High Protein 237 ml PO TID #60 can Metoprolol Tartrate [Lopressor] 100 mg PO BID 6AM 6PM #60 tablet Amlodipine [Norvasc*] 5 mg PO DAILY #30 tab Calcitrol [Rocaltrol*] 0.5 mcg PO DAILY #60 cap Physician Discharge Instructions: -DC IV and DC home -Follow-up with PCP in 1 to 2 weeks -Follow-up with Surgery in 1 to 2 weeks -Follow-up with Nephrology in 1 to 2 weeks -Please give patient information for Dr. Jacinto -Please call Dr. Lopez at [phone] if any questions regarding hospital stay -Please call nursing station at [phone] if any nursing or medication questions -Return to the emergency room if symptoms worsen Diet: Regular Activity: Fall precautions Followup: Cornelio Puckett MD [ACTIVE - CAN ADMIT] - 1 Week (CAll to schedule an appointment) Chris Denise DO [ACTIVE - CAN ADMIT] - (Call to schedule appointment.) Chuy Patino MD [ACTIVE - CAN ADMIT] - (Call to schedule appointment) Tom Jacinto [ACTIVE - CAN ADMIT] - 1-2 Weeks (CAll to schedule an appointment)
[2021-08-10 13:27] VITALS: BP 112/61
[2021-08-10] MEDS ORDERED: POTASS/SODIUM PHOSPHATE 1 PKT POWD.PACK PO SCH (14:00)
--- NOTE | 2021-08-10 18:21 | PN ---
Date of Progress Note: 08/10/2021 Subjective: The patient is seen at the bedside. He is sitting upright in the chair. Owusu catheter remains in place. His is also here in the room at the bedside. Patient has no acute complaint s at this time. Objective: Vital Signs: Blood pressure is 129/62, pulse 86, afebrile. General: No acute distress. Heart: Regular rate and rhythm. No murmurs or gallops. Lungs: Grossly clear. Abdomen: Soft. Extremities: No edema. : Owusu catheter in place with clear yellow urine. Laboratory Data: H and H 11.5/34.1. Serum chemistry, potassium 3.4, BUN and creatinine 13/0.94, chuyita sphorus is 2.1. Impression: 1.Acute kidney injury, which resolved. 2.Electrolyte imbalance including hypokalemia and hypophosphatemia. 3.Hypertension. 4.BPH with urinary obstruction with no Owusu catheter. Plan: The patient's p.o. intake remains poor as exhibited by his hypokalemia, is likely depletional and similar for his hypophosphatemia. I have started potassium on K-Phos 1 packet 3 times daily. I have asked the patient's to encourage nutrition in the patient. We will continue to monitor mary ellen ly electrolytes. SE/MODL Voice ID: [id number] Report ID: [id number]
== END 2021-08-10 15:55 | disposition home health service (06) | DRG 853 ==
LOC: ER 15:40 → ERHOLD 19:24 → 2ND 21:41
PROVIDERS: ADMIT Hospitalist; ATTEND Hospitalist
PROC: 0T9B70Z Drainage of Bladder with Drainage Device, Via Natural or Artificial Opening (ICD-10-PCS; 2021-07-22)
PROC: 0FJ44ZZ Inspection of Gallbladder, Percutaneous Endoscopic Approach (ICD-10-PCS; 2021-07-23)
PROC: 0FT40ZZ Resection of Gallbladder, Open Approach (ICD-10-PCS; principal; 2021-07-23 08:15)
PROC: 02HV33Z Insertion of Infusion Device into Superior Vena Cava, Percutaneous Approach (ICD-10-PCS; 2021-07-26)
PROC: 3E04329 Introduction of Other Anti-infective into Central Vein, Percutaneous Approach (ICD-10-PCS; 2021-07-26)
DX: A41.9 Sepsis, unspecified organism (principal); E43 Unspecified severe protein-calorie malnutrition; E87.1 Hypo-osmolality and hyponatremia; N17.9 Acute kidney failure, unspecified; K80.00 Calculus of gallbladder with acute cholecystitis without obstruction; K91.89 Other postprocedural complications and disorders of digestive system; K56.7 Ileus, unspecified; J98.11 Atelectasis; J95.89 Other postprocedural complications and disorders of respiratory system, not elsewhere classified; R65.20 Severe sepsis without septic shock; E11.40 Type 2 diabetes mellitus with diabetic neuropathy, unspecified; E78.5 Hyperlipidemia, unspecified; R09.02 Hypoxemia; E11.65 Type 2 diabetes mellitus with hyperglycemia; R91.8 Other nonspecific abnormal finding of lung field; Y83.9 Surgical procedure, unspecified as the cause of abnormal reaction of the patient, or of later complication, without mention of misadventure at the time of the procedure; I12.9 Hypertensive chronic kidney disease with stage 1 through stage 4 chronic kidney disease, or unspecified chronic kidney disease; E11.22 Type 2 diabetes mellitus with diabetic chronic kidney disease; N18.9 Chronic kidney disease, unspecified; E11.42 Type 2 diabetes mellitus with diabetic polyneuropathy; N40.1 Benign prostatic hyperplasia with lower urinary tract symptoms; E83.51 Hypocalcemia; E87.6 Hypokalemia; E83.39 Other disorders of phosphorus metabolism; D63.8 Anemia in other chronic diseases classified elsewhere; R00.0 Tachycardia, unspecified; R33.9 Retention of urine, unspecified; N99.89 Other postprocedural complications and disorders of genitourinary system; E87.8 Other disorders of electrolyte and fluid balance, not elsewhere classified; Z20.822 Contact with and (suspected) exposure to COVID-19; Z68.23 Body mass index [BMI] 23.0-23.9, adult
CPT/HCPCS: 36415; 36569; 70450; 71045; 71260; 74176; 74177; 76705; 80048; 80053; 80061; 80076; 80202; 81003; 81015; 82607; 82746; 82947; 83036; 83540; 83605; 83690; 83735; 83880; 83930; 83935; 84100; 84132; 84145; 84300; 84443; 84466; 84550; 85025; 85610; 85730; 86140; 87040; 87086; 87088; 87324; 87449; 88304; 94010; 96361; 96365; 96366; 96372; 96375; 97110; 97116; 97161; 97530; 99285; J1100; J1170; J1650; J1815; J1940; J2185; J2270; J2405; J2543; J2704; J2916; J3010; J3370; J3420; J3475; J3480; J3490; J7030; J7050; Q9967; U0003